=== PATIENT | male | born 1945 | race Caucasian/White ===

== ENCOUNTER 2016-07-05 19:23 | Emergency (ER) | payer MEDICARE, BC ==
[2016-07-05] MEDS ORDERED: Diphtheria/Tetanus Toxoids,Adult (Td) 0.5 ML SDV IM ONE (20:08)
--- NOTE | 2016-07-05 20:17 | EDM.PDOC ---
ED HPI GENERAL MEDICAL PROBLEM - General Chief Complaint: General Stated Complaint: LACERATION Time Seen by Provider: 07/05/16 19:30 Source of Information: Reports: Patient History Limitations: Reports: No limitations - History of Present Illness INITIAL COMMENTS - FREE TEXT/NARRATIVE: claims that he has been drinking all evening and she was watching him. He felt weak and felt dizzy and hit his head against the kitchen counter top. No loss of consciousness. No abnormal behaviour other than his alcoholic behaviors. Pt claims tht he did bleed a lot but now he his not bleeding and feel fine. no neck pain .Does complain of pain his his shoulder which is going on for several years. No nausea , vomiting or headache. No other injuries. Onset: today Onset Date: 07/05/16 Onset Time: 18:30 Location: Reports: head - Related Data Allergies Allergy/AdvReac Type Severity Reaction Status Date / Time ANDRES Inhibitors Allergy Unknown Swollen Verified 08/16/15 12:52 Tongue CONTRAST DYE Allergy Swollen Uncoded 08/16/15 12:52 Tongue Home Meds: Home Meds Aspirin 325 mg PO DAILY 05/14/13 [History] Metoprolol Tartrate [Lopressor] 25 mg PO Q12HR 05/14/13 [History] Sertraline [Zoloft] 100 mg PO BID 05/14/13 [History] amLODIPine Besylate [Norvasc] 5 mg PO DAILY 05/14/13 [History] Albuterol [Ventolin HFA] 1 puff .XX Q4H 08/03/15 [History] Bicalutamide [Casodex] 50 mg PO DAILY 08/03/15 [History] Clobetasol [Clobetasol Propionate 0.05%] 30 gm TOP BID 08/03/15 [History] Clopidogrel [Plavix] 75 mg PO DAILY 08/03/15 [History] Isosorbide Mononitrate [Imdur] 30 mg PO DAILY 08/03/15 [History] Loperamide [Imodium AD] 2 mg PO DAILY 08/03/15 [History] Magnesium Chloride [Mag-64] 1 tab PO DAILY 08/03/15 [History] Pyridoxine HCl [Vitamin B-6] 100 mg PO DAILY 08/03/15 [History] atorvaSTATin [Lipitor] 80 mg PO BEDTIME 08/03/15 [History] Past Medical History HEENT History: Reports: Impaired vision, Other (see below) Other HEENT History: tinitus Cardiovascular History: Reports: Bypass, Hypertension, NE, Stents Respiratory History: Reports: COPD, Pneumonia, recurrent Gastrointestinal History: Reports: Chronic diarrhea Genitourinary History: Reports: Chronic renal insuffiency, Prostate disorder, Retention, urinary, Urinary incontinence Musculoskeletal History: Reports: Back pain, chronic, Osteoarthritis Psychiatric History: Reports: Anxiety, Depression Oncologic (Cancer) History: Reports: Prostate Dermatologic History: Reports: Eczema, Other (see below) Other Dermatologic History: shingles - Infectious Disease History Infectious Disease History: Reports: Chicken pox, Measles, Mumps, Shingles - Past Surgical History Cardiovascular Surgical History: Reports: Coronary artery bypass, Coronary artery stent Respiratory Surgical History: Reports: None GI Surgical History: Reports: Other (see below) Other GI Surgeries/Procedures: removal of hemroids Male Surgical History: Reports: Prostate Biopsy, Prostatectomy Musculoskeletal Surgical History: Reports: Other (see below) Other Musculoskeletal Surgeries/Procedures:: roto cuff surgery on right shoulder Social & Family History - Family History Family Medical History: Noncontributory - Tobacco Use Smoking Status *Q: Current Some Day Smoker Years of Tobacco use: 55 Packs/Tins Daily: 0.2 Used Tobacco, but Quit: No Second Hand Smoke Exposure: Yes - Alcohol Use Days Per Week of Alcohol Use: 7 Number of Drinks Per Day: 1 Total Drinks Per Week: 7 - Recreational Drug Use Recreational Drug Use: No ED ROS GENERAL - Review of Systems Review Of Systems: See Below Constitutional: Reports: other (breath smells of ETOH). Denies: fever, chills, night sweats, diaphoresis HEENT: Reports: Rhinitis, Sinus problem, Throat pain Respiratory: Denies: Shortness of Breath, Cough, Sputum Cardiovascular: Denies: Chest pain, Lightheadedness GI/Abdominal: Denies: Abdominal pain, Nausea, Vomiting Musculoskeletal: Denies: joint pain, joint swelling Skin: Reports: bruising. Denies: pruritis, rash Neurological: Denies: Confusion, Dizziness, Headache, Numbness, Paresthesia, Syncope, Tremors, Difficulty Walking, Weakness, Gait Disturbance ED EXAM, GENERAL - Physical Exam Exam: See Below Exam Limited By: No limitations General Appearance: alert, WD/WN, no apparent distress, other (breath smeel of ETOH) Eye Exam: bilateral eye: EOMI, PERRL Ears: normal external exam, normal canal, hearing grossly normal, normal TMs Ear Exam: bilateral ear: auricle normal, canal normal, TM normal Nose: normal inspection, normal mucosa, no blood Throat/Mouth: Normal inspection, Normal lips, Normal teeth, Normal gums, Normal oropharynx, Normal voice, No airway compromise Head: normocephalic, other (there is a 3 cm gaping laceration over the right forehead. Presently not bleeding. minimal tenderness to pressure. Also there is 1 cm superficial laceration over the right lateral angle of the eye. hemostatic. ). No: facial swelling, facial tenderness ED GENERAL MEDICAL PROCEDURES - Laceration/Wound Repair Right Forehead Lac/wound length in cm: 4 (3 cm laceration over the fore head and 1 cm laceration of right lateral angle of the eye) Distal NVT: neuro & vascular intact Local anesthesia - Lidocaine (Xylocaine): 0.5% with epi Local anesthetic volume: 4cc Skin prep: providone-iodine (betadine) Exploration/Debridement/Repair: wound explored Closed with: sutures Suture size: 4-0 # of sutures: 5 (% sutures over the forehead. Also I did close theright eye magle with 5 O ethilon. 2 intermittent sutures) Sterile dressing applied: provider Tetanus status addressed: Other (given TD today) Complications: No Course - Vital Signs Text/Narrative:: Both the laceration were cleaned and closed under aseptic precautions under local anesthesia. Simple dressing done. He did receive tetanus today. Wound care discussed with spouse. suture removal in 1 wk. If any signs of head injury occur. irregular pupils, nausea , vomiting, seizure, blurry vision. weakness. advised to return to emergency room. otherwise followup with his PCP in 1 wk for suture removal. - Orders/Labs/Meds Orders: Active Orders 24 hr Category Date Time Status Vaccines to be Administered [RC] PER UNIT ROUTINE Care 07/05/16 20:08 Active Meds: Medications Discontinued Medications Generic Name Dose Route Start Last Admin Trade Name Freq PRN Reason Stop Dose Admin Tetanus/Diphtheria Toxoids 0.5 ml 07/05/16 20:08 Tenivac IM 07/05/16 20:09 .ONCE ONE Departure - Departure Time of Disposition: 20:00 Disposition: Home, Self-Care 01 Condition: good Clinical Impression: Laceration of forehead without complication, Laceration of face with complication Instructions: Wound Infection, [id number], Sutured Wound Care, [id number] Forms: ED Department Discharge Additional Instructions: Keep affected area clean and dry for next 2 days. After 2 days, may shower, but only dab sutured areas, no rubbing. Monitor affected sites for signs and symptoms of infection present, including increased redness, increased swelling, increased pain or tenderness to touch, warm to touch, foul drainage, and/or fever present. Should any of these symptoms develop, follow up in clinic to be seen. Sutures should be removed Monday next week. This can be done at your previously scheduled appointment with regular provider. Call with any questions. May give 1-500mg tablet Tylenol when you return home for pain control. - Problem List & Annotations (1) Laceration of face with complication SNOMED Code(s): 83566104, 782961210 Code(s): S01.81XA - LACERATION W/O FOREIGN BODY OF OTH PART OF HEAD, INIT ENCNTR Status: Acute (2) Laceration of forehead without complication SNOMED Code(s): 295791670 Code(s): S01.81XA - LACERATION W/O FOREIGN BODY OF OTH PART OF HEAD, INIT ENCNTR Status: Acute - Problem List Review Problem List Initiated/Reviewed/Updated: Yes - My Orders Last 24 Hours: My Active Orders 07/05/16 20:08 Vaccines to be Administered [RC] PER UNIT ROUTINE - Assessment/Plan Last 24 Hours: My Active Orders 07/05/16 20:08 Vaccines to be Administered [RC] PER UNIT ROUTINE Assessment:: Laceration right forehead 3 cm Right eye lateral angle laceration 1 cm Plan: Both the laceration were cleaned and closed under aseptic precautions under local anesthesia. Simple dressing done. He did receive tetanus today. Wound care discussed with spouse. suture removal in 1 wk. If any signs of head injury occur. irregular pupils, nausea , vomiting, seizure, blurry vision. weakness. advised to return to emergency room. otherwise followup with his PCP in 1 wk for suture removal.
[2016-07-06 03:00] VITALS: BP 109/64
== END 2016-07-05 20:10 | disposition home or self-care (01) ==
LOC: LB.ED 19:23
DX: S01.81XA Laceration without foreign body of other part of head, initial encounter (principal); J44.9 Chronic obstructive pulmonary disease, unspecified; I25.2 Old myocardial infarction; I12.9 Hypertensive chronic kidney disease with stage 1 through stage 4 chronic kidney disease, or unspecified chronic kidney disease; N18.9 Chronic kidney disease, unspecified; F41.9 Anxiety disorder, unspecified; F32.9 Major depressive disorder, single episode, unspecified; F17.210 Nicotine dependence, cigarettes, uncomplicated; Z91.041 Radiographic dye allergy status; Z88.8 Allergy status to other drugs, medicaments and biological substances; Z79.82 Long term (current) use of aspirin; Z79.899 Other long term (current) drug therapy; Z98.890 Other specified postprocedural states; Z23 Encounter for immunization; W01.10XA Fall on same level from slipping, tripping and stumbling with subsequent striking against unspecified object, initial encounter
CPT/HCPCS: 12013; 90471; 90714; 99282; 99283-25

== ENCOUNTER 2016-08-16 16:28 | Emergency (ER) | payer MEDICARE, BC ==
[2016-08-16] MEDS ORDERED: Thiamine 200 MG/2 ML MDV ONE (16:50)
[2016-08-16] MEDS ORDERED: Ranitidine 50 MG/2 ML SDV ONE (16:50)
[2016-08-16] MEDS ORDERED: Sodium Chloride 0.9% 10 ML Syringe FLUSH PRN (17:05)
[2016-08-16] MEDS ORDERED: Ranitidine 50 MG/2 ML SDV IV ONE (17:07)
[2016-08-16] MEDS ORDERED: Lactated Ringers 1,000 ML IV SCH (17:15)
[2016-08-16] MEDS ORDERED: Thiamine 200 MG/2 ML MDV IM SCH (17:30)
[2016-08-16 18:16] VITALS: BP 88/68
--- NOTE | 2016-08-17 07:25 | ER ---
CHIEF COMPLAINT: The patient came to the ER complaining of loose black stool today followed several hours later by a bloody vomitus. HISTORY OF PRESENT ILLNESS: The patient was in his usual state of health. Today, he had a loose dark stool, felt a bit better. Afterwards when out to do some yard work, he started to feel a little weak. About 4 o'clock this afternoon, he had a bloody vomiting x1 of dark red fresh blood. No coffee-grounds present. The patient was recently admitted to the hospital in [place] about 2 weeks ago for hematuria of the bladder and at that time, he had his Plavix stopped and was evaluated by Urology and sent home. PAST MEDICAL HISTORY: Significant for ischemic cardiomyopathy, status post coronary artery bypass. He has had radical retropubic prostatectomy due to prostate cancer. He has also had radiation for this. He has had a history of recurrent colonic polyps. He is not due for his next colonoscopy until later this year. He has history of hypertension, hyperlipidemia, and depression as well as COPD. SOCIAL HISTORY: He is a smoker long-term. He also drinks a bit of alcohol including homemade alcohol. He states he has not drank anything for 3 days. He has no history of DTs. REVIEW OF SYSTEMS: The patient denies any fever or weight loss. He did have some fatigue today, felt weak when he would stand up or walk around. He was comfortable lying down or sitting down. Denies any vision changes. No nasal congestion, sore throat, or ear pain. No chest pain or palpitation. No coughing or wheezing. No constipation or heartburn. : He did have some nausea and vomiting today of bloody emesis x1, about 4 p.m. today and did have some melena type stool today x1 at about noon. He has no dysuria at this time. He is not passing any blood or clots. MUSCULOSKELETAL: No complaints of joint pain or swelling at this time. SKIN: He has no complaints or rashes except for some senile purpura on his upper extremities. NEURO: He has no complaints of headache or focal weakness. PSYCH: He has a history of depression, which he feels is under control. PHYSICAL EXAMINATION: GENERAL: Well developed, elderly male. He is alert, he is oriented x3. Currently, he is in no acute distress. VITAL SIGNS: Blood pressure in the emergency room showed a tilt with blood pressure lying down at 136/76, pulse of 87, standing up blood pressure 88/68, pulse of 98, his temperature is 99.3, and his saturations on room air are 100%. EYES: Show EOMI. Conjunctiva is clear. Lids are normal. There is no icterus present. ENT: Throat is clear. He is edentulous. Nose is clear. TMs are normal. NECK: Supple. No thyromegaly. No bruits. No masses. LYMPH: Negative. LUNGS: Clear. No rhonchi or wheezing. HEART: Shows regular rate and rhythm. No murmurs, rubs, or gallops. No S3, no S4. There is gynecomastia present bilaterally. ABDOMEN: Soft. Bowel sounds x4. No mass, no organomegaly. There is no hyperactivity of bowel sounds. He is heme positive on rectal exam. BACK: No CVA or cord tenderness. No limitations of motion. SKIN: No rashes or sores except for some senile purpura of the hands and forearms bilaterally. NEURO: Cranial nerves 2 through 12 intact. No motor or sensory deficits. PSYCH: Normal judgment and insight. Oriented x3. Memory is intact. Mood is appropriate. ASSESSMENT: 1. Probable upper GI bleed, acute in nature. 2. Probable radiation proctitis, chronic in nature. 3. History of colonic polyps. 4. History of exposure to radiation due to prostate cancer treatment. 5. History of chronic obstructive pulmonary disease. 6. History of atherosclerosis. 7. History of coronary artery disease, status post CABG. 8. History of recent hemorrhage from the bladder. PLAN: Due to the patient tilting, there was concerns that his upper GI bleed may be somewhat significant requiring urgent endoscopy. I do not think he has varices as a recent CT of the abdomen showed a noncirrhotic liver. I do think he probably has acute gastritis from his alcohol use. Also, he has a history of having been on multiple agents I can thin the blood including his Zoloft, his baby aspirin, and his recent Plavix that had just been discontinued. Today, his urine does show too numerous to count red cells present, alcohol level was 0. Hematology, his white count was 7.3, his hemoglobin was 12, hematocrit 34.9, RDW 14.9, platelet count 169, and an MCV of 105. Recent CBC about 6 weeks ago had a hemoglobin of 14.2. His INR was normal. His electrolytes were normal; however, his BUN was elevated from his baseline of approximately 15, it was 46 likely from absorbing blood of upper GI origin, creatinine was at 1.15 with a GFR greater than 60. Glucose was 115, calcium was normal, his magnesium was a little low at 1.2. Liver enzymes were normal. The patient was transferred back to [place], where he has his urologist, curtain framer, and oncologist. He was accepted by Dr. Salmeron. I imagine he will have his blood count followed closely and have endoscopy in the morning. I do not think he has varices as I said prior; however, he probably has acute peptic ulcer disease from home made excessive alcohol use on a chronic basis. AMANDA /[id number]
== END 2016-08-16 19:00 ==
LOC: LB.ED 16:28
DX: K92.2 Gastrointestinal hemorrhage, unspecified (principal); K62.7 Radiation proctitis; I10 Essential (primary) hypertension; E78.5 Hyperlipidemia, unspecified; F32.9 Major depressive disorder, single episode, unspecified; J44.9 Chronic obstructive pulmonary disease, unspecified
CPT/HCPCS: 36415; 80053; 83735; 85025; 85610; 93005; 96361; 96372; 96374; 99284; 99285; A0425; A0429; G0480; J2780; J3411; J7120

== ENCOUNTER 2017-05-15 09:29 | Inpatient (IN) | payer MEDICARE, BC ==
[2017-05-17] MEDS ORDERED: oxyCODONE 5 MG Tab ONE ×2 (19:56→19:59)
[2017-05-17] MEDS ORDERED: oxyCODONE 5 MG Tab PO PRN (20:00)
[2017-05-17] MEDS ORDERED: Acetaminophen 650 MG Tab.ER PO PRN (20:17)
[2017-05-17] MEDS ORDERED: Albuterol 0.083% 2.5 MG/3 ML Neb Soln INH PRN (20:17)
[2017-05-17] MEDS ORDERED: Ondansetron 4 MG Tab.DIS PO PRN (20:17)
[2017-05-17] MEDS ORDERED: Polyethylene Glycol 3350 Powder 17 GM Packet PO PRN (20:17)
[2017-05-17] MEDS ORDERED: DRONABINOL 5 MG PO SCH (20:21)
[2017-05-17] MEDS ORDERED: Lactulose Soln 10 GM/15 ML 15 ML UD Cup PO PRN (20:32)
[2017-05-17] MEDS: Metoprolol Tartrate 25 MG Tab PO SCH (20:42)
[2017-05-17] MEDS: Famotidine 20 MG Tab PO SCH (20:42)
[2017-05-17] MEDS: Lactulose Soln 10 GM/15 ML 15 ML UD Cup PO SCH (20:42)
[2017-05-17] MEDS: Albuterol/Ipratropium 3.0-0.5 MG/3 ML Neb Soln INH SCH (20:43)
[2017-05-18] MEDS ORDERED: Cholecalciferol (Vitamin D3) 2,000 Unit Cap PO SCH (08:00)
[2017-05-18] MEDS ORDERED: Enoxaparin 40 MG/0.4 ML Syringe SUBCUT SCH (08:00)
[2017-05-18] MEDS ORDERED: Tuberculin, PPD 5 Units/0.1 ML 1 ML MDV IDERM ONE (08:07)
[2017-05-18] MEDS: Lidocaine 5% 700 MG Patch TOP SCH (08:32)
[2017-05-18] MEDS: Albuterol/Ipratropium 3.0-0.5 MG/3 ML Neb Soln INH SCH ×4 (08:33→20:05)
[2017-05-18] MEDS: Enoxaparin 40 MG/0.4 ML Syringe SUBCUT SCH (08:33)
[2017-05-18] MEDS: Lactulose Soln 10 GM/15 ML 15 ML UD Cup PO SCH ×2 (08:35→20:07)
[2017-05-18] MEDS: Famotidine 20 MG Tab PO SCH ×2 (08:35→20:04)
[2017-05-18] MEDS: Multivitamins with Iron/Calcium/Folic Acid/Minerals Tab PO SCH (08:35)
[2017-05-18] MEDS: Furosemide 20 MG Tab PO SCH (08:36)
[2017-05-18] MEDS: Cholecalciferol (Vitamin D3) 1,000 Unit Tab PO SCH (08:36)
[2017-05-18] MEDS: oxyCODONE 5 MG Tab PO PRN ×4 (08:37→21:03)
[2017-05-18] MEDS: Sertraline 100 MG Tab PO SCH (08:37)
[2017-05-18] MEDS: Metoprolol Tartrate 25 MG Tab PO SCH ×2 (08:42→20:05)
[2017-05-18] MEDS: Acetaminophen 325 MG Tab PO PRN ×2 (16:57→21:04)
--- NOTE | 2017-05-18 17:44 | PCM.HP ---
H&P History of Present Illness - General Date of Service: 05/18/17 Admit Problem/Dx: Admission Diagnosis/Problem Admission Diagnosis/Problem Disruption of external surgical wound Source of Information: Patient, Old Records, RN History Limitations: Reports: No Limitations - History of Present Illness Initial Comments - Free Text/Narative: This 72 yr male admit to Swing bed program for dehiscence of surgical wound to abdomen, deconditioning, malignant, right pleural effusion and wound care. Pt is transferred from [facility] in [place], [place]. Pt has a medical history of CAD, COPD, dyslipidemia and GE junction mass and adenocarcinoma. He had chemoradiation wtih carbopatin on 03-13-17 and had a transhiatal esophagectomy, post surgery complicated with wound dehiscence. He does have a PleurX catheter to the right lung and this is to be drained 2x/week. 8 Pain Score (Numeric/FACES): 6 - Related Data Allergies/Adverse Reactions: Allergies Allergy/AdvReac Type Severity Reaction Status Date / Time ANDRES Inhibitors Allergy Unknown Swollen Verified 05/17/17 20:20 Tongue CONTRAST DYE Allergy Swollen Uncoded 05/17/17 20:20 Tongue Home Medications: Home Meds Metoprolol Tartrate [Lopressor] 25 mg PO BID 05/14/13 [History] Sertraline [Zoloft] 100 mg PO DAILY 05/14/13 [History] Acetaminophen [Tylenol Arthritis] 650 mg PO Q4H PRN 05/17/17 [History] Albuterol [Proventil Neb Soln] 2.5 mg INH Q4H PRN 05/17/17 [History] Albuterol/Ipratropium [DuoNeb 3.0-0.5 MG/3 ML] 3 ml INH Q6H PRN 05/17/17 [ History] Albuterol/Ipratropium [DuoNeb 3.0-0.5 MG/3 ML] 3 ml INH QID 05/17/17 [History] Cholecalciferol (Vitamin D3) [Vitamin D3] 2,000 unit PO DAILY 05/17/17 [History] Dronabinol 5 mg PO BID 05/17/17 [History] Enoxaparin Sodium 40 mg SQ DAILY 05/17/17 [History] Famotidine 20 mg PO BID 05/17/17 [History] Furosemide [Lasix] 20 mg PO DAILY 05/17/17 [History] Lactulose 10 gm PO DAILY PRN 05/17/17 [History] Lactulose 20 gm PO BID 05/17/17 [History] Lidocaine 5% [Lidoderm 5%] 1 patch TOP DAILY 05/17/17 [History] Melatonin 3 mg PO QPM 05/17/17 [History] Multivitamin [Men's Multi-Vitamin] 1 each PO DAILY 05/17/17 [History] Ondansetron [Zofran ODT] 4 mg PO Q6H PRN 05/17/17 [History] Polyethylene Glycol 3350 [MiraLAX] 17 gm PO DAILY PRN 05/17/17 [History] Sennosides/Docusate Sodium [Sennosides-Docusate Sodium] 2 each PO BID PRN [History] oxyCODONE 5 mg PO Q4H PRN 05/17/17 [History] Past Medical History HEENT History: Reports: Impaired Vision, Other (See Below) Other HEENT History: esophagous removed d/t CA, some hearing issues (tinnitus) Cardiovascular History: Reports: Bypass, Heart Murmur, Hypertension, [place], SOB on Exertion, Stents Respiratory History: Reports: COPD, Pneumonia, Recurrent, Pneumothorax Gastrointestinal History: Reports: Chronic Diarrhea, Colon Polyp, Hemorrhoids, Other (See Below) Other Gastrointestinal History: possible hernia in abdomen Genitourinary History: Reports: Chronic Renal Insuffiency, Prostate Disorder, Retention, Urinary, Urinary Incontinence, Other (See Below) Other Genitourinary History: prostate removed d/t CA Musculoskeletal History: Reports: Back Pain, Chronic, Osteoarthritis Psychiatric History: Reports: Anxiety, Depression, Mood Swings, PTSD Other Psychiatric History: ETOH abuse Hematologic History: Reports: Bleeding Disorder, Other (See Below) Other Hematologic History: clotting disorder " I clot quick" Oncologic (Cancer) History: Reports: Esophageal, Prostate, Other (See Below) Other Oncologic History: "some colon polyps were cancerous type I think" Dermatologic History: Reports: Eczema, Other (See Below) Other Dermatologic History: shingles - Infectious Disease History Infectious Disease History: Reports: Other (See Below) Other Infectious Disease History: ' i don t know, i think I have had it all" - Past Surgical History Cardiovascular Surgical History: Reports: Coronary Artery Bypass, Coronary Artery Stent Respiratory Surgical History: Reports: Other (See Below) Other Respiratory Surgeries/Procedures: chest tubes currently in place on R. chest tubes removed and healed on left GI Surgical History: Reports: Other (See Below) Other GI Surgeries/Procedures: stomnach attached top of esophagus with esophageal removal Male Surgical History: Reports: Prostatectomy Musculoskeletal Surgical History: Reports: Arthroscopic Procedure, Other (See Below) Other Musculoskeletal Surgeries/Procedures:: rotator cuff sx arthroscopy previous to sx Social & Family History - Family History Family Medical History: Noncontributory - Tobacco Use Smoking Status *Q: Former Smoker Years of Tobacco use: 55 Packs/Tins Daily: 0.2 Used Tobacco, but Quit: Yes Month Tobacco Last Used: February Second Hand Smoke Exposure: Yes - Caffeine Use Caffeine Use: Reports: Coffee - Alcohol Use Days Per Week of Alcohol Use: 7 Number of Drinks Per Day: 1 Total Drinks Per Week: 7 - Recreational Drug Use Recreational Drug Use: No H&P Review of Systems - Review of Systems: Review Of Systems: See Below General: Reports: Weight Loss HEENT: Reports: No Symptoms Pulmonary: Reports: Other (PleurX catheter to right chest) Cardiovascular: Reports: Dyspnea on Exertion. Denies: Chest Pain, Edema Gastrointestinal: Reports: Abdominal Pain. Denies: Constipation, Hematochezia, Melena, Vomiting Skin: Reports: Wound (abdomen and chest tube to right lower, anterior chest) Psychiatric: Reports: Depression Neurological: Reports: No Symptoms Hematologic/Lymphatic: Reports: No Symptoms Exam - Exam Exam: See Below - Vital Signs Vital Signs: Last Vital Signs Temp 98.5 F 05/17/17 20:00 Pulse 64 05/18/17 08:42 Resp 20 05/17/17 20:00 BP 128/74 05/18/17 08:42 Pulse Ox 93 L 05/17/17 20:12 Weight: 154 lb - Exam Quality Assessment: Supplemental Oxygen General: Alert, Oriented HEENT: Mucosa Moist & [place] Neck: Supple, Trachea Midline Lungs: Decreased Breath Sounds, Crackles (to bases bilaterally), Other (PleurX catheter to right chest to drain 2x/week.) Cardiovascular: Normal S1, Normal S2, Irregular Rhythm GI/Abdominal Exam: Normal Bowel Sounds, Soft, Tender (wound to middle of abdomen , dressing intact, no drainage noted). No: Rigid, Rebound Back Exam: Normal Inspection, Full Range of Motion Extremities: Normal Inspection, Normal Range of Motion, No Pedal Edema Skin: Warm, Dry, Wound (dehisence of surgical wound to middle abdomen) Neuro Extensive - Mental Status: Alert, Oriented x3, Normal Mood/Affect, Normal Cognition Neuro Extensive - Motor, Sensory, Reflexes: Normal Gait Psychiatric: Alert, Normal Affect, Normal Mood *Q Meaningful Use (ADM) - VTE *Q VTE Criteria *Q: - Stroke *Q Stroke Criteria *Q: - AMI *Q AMI Criteria *Q: - Problem List (1) Disruption of surgical wound SNOMED Code(s): 69743699 ICD Code: T81.31XA - DISRUPTION OF EXTERNAL OPERATION (SURGICAL) WOUND, NEC, INIT Status: Acute Current Visit: Yes (2) Malignant pleural effusion SNOMED Code(s): 35830585 ICD Code: J91.0 - MALIGNANT PLEURAL EFFUSION Status: Acute Current Visit : Yes (3) Depression SNOMED Code(s): 42702167 ICD Code: F32.9 - MAJOR DEPRESSIVE DISORDER, SINGLE EPISODE, UNSPECIFIED Status: Acute Current Visit: Yes (4) Diastolic heart failure SNOMED Code(s): 611020523 ICD Code: I50.30 - UNSPECIFIED DIASTOLIC (CONGESTIVE) HEART FAILURE Status : Acute Current Visit: Yes (5) DVT prophylaxis SNOMED Code(s): 395345752 ICD Code: TEI3152 - Status: Acute Current Visit: Yes (6) Constipation SNOMED Code(s): 77693564 ICD Code: K59.00 - CONSTIPATION, UNSPECIFIED Status: Acute Current Visit : Yes (7) Hypertension SNOMED Code(s): 61962651 ICD Code: I10 - ESSENTIAL (PRIMARY) HYPERTENSION Status: Acute Current Visit: Yes (8) Physical deconditioning SNOMED Code(s): 56102145144264 ICD Code: R53.81 - OTHER MALAISE Status: Acute Current Visit: Yes (9) COPD (chronic obstructive pulmonary disease) SNOMED Code(s): 21509714 ICD Code: J44.9 - CHRONIC OBSTRUCTIVE PULMONARY DISEASE, UNSPECIFIED Status : Chronic Current Visit: No Problem List Initiated/Reviewed/Updated: Yes Orders Last 24hrs: Active Orders 24 hr Category Date Time Status Patient Status [ADT] Routine ADT 05/17/17 20:00 Active Height and Weight [RC] WEEKLY Care 05/17/17 20:14 Active Oxygen Therapy [RC] PRN Care 05/17/17 20:12 Active Up With Assistance [RC] ASDIRECTED Care 05/17/17 20:00 Active VTE/DVT Education [RC] Per Unit Routine Care 05/17/17 20:12 Active Vital Signs [RC] PER UNIT ROUTINE Care 05/17/17 20:12 Active Consult to Business Travel Consultant [CONS] Routine Cons 05/17/17 20:00 Active OT Evaluation and Treatment [CONS] Routine Cons 05/17/17 20:00 Active PT Evaluation and Treatment [CONS] Routine Cons 05/17/17 20:00 Active Regular Diet [DIET] Diet 05/18/17 Breakfast Ordered CBC WITH AUTO DIFF [HEME] Routine Lab 05/19/17 07:30 Ordered COMPREHENSIVE METABOLIC PN,CMP [CHEM] Routine Lab 05/19/17 07:30 Ordered CULTURE MRSA SURVEY [RM] Routine Lab 05/18/17 08:05 Ordered Acetaminophen [Tylenol] Med 05/18/17 08:22 Active 650 mg PO Q4H PRN Albuterol [Proventil Neb Soln] Med 05/17/17 20:17 Active 2.5 mg INH Q4H PRN Albuterol/Ipratropium [DuoNeb 3.0-0.5 MG/3 ML] Med 05/17/17 20:22 Active 3 ml INH QID Cholecalciferol (Vitamin D3) [Vitamin D3] Med 05/18/17 08:00 Active 1,000 units PO DAILY Docusate Sodium/Sennosides [Senna Plus] Med 05/17/17 20:17 Active 2 tab PO BID PRN Dronabinol [Dronabinol] Med 05/17/17 20:21 Pending 5 mg PO BID Enoxaparin [Lovenox] Med 05/18/17 08:00 Active 40 mg SUBCUT DAILY Famotidine [Pepcid] Med 05/17/17 20:00 Active 20 mg PO BID Furosemide [Lasix] Med 05/18/17 08:00 Active 20 mg PO DAILY Lactulose [Chronulac] Med 05/17/17 20:32 Active 10 gm PO DAILY PRN Lactulose [Chronulac] Med 05/17/17 20:45 Active 20 gm PO BID Lidocaine 5% [Lidoderm 5%] Med 05/18/17 08:00 Active 700 mg TOP DAILY Melatonin Med 05/18/17 20:00 Active 3 mg PO QPM Metoprolol Tartrate [Lopressor] Med 05/17/17 20:30 Active 25 mg PO BID Multivitamins w-Iron/Ca/FA/Min [Thera M Plus] Med 05/18/17 08:00 Active 1 tab PO DAILY Ondansetron [Zofran ODT] Med 05/17/17 20:17 Active 4 mg PO Q6H PRN Polyethylene Glycol 3350 [MiraLAX] Med 05/17/17 20:17 Active 17 gm PO DAILY PRN Remove Patch Med 05/18/17 20:00 Active 1 ea TRDERM Q24H Sertraline [Zoloft] Med 05/18/17 08:00 Active 100 mg PO DAILY oxyCODONE Med 05/17/17 20:00 Active 5 mg PO Q4H PRN Resuscitation Status Routine Resus Stat 05/17/17 20:00 Ordered Medication Orders Acetaminophen (Tylenol) 650 mg PO Q4H PRN PRN Reason: MILD PAIN Last Admin: 05/18/17 16:57 Dose: 650 mg Albuterol (Proventil Neb Soln) 2.5 mg INH Q4H PRN PRN Reason: Shortness of Breath Albuterol/Ipratropium (Duoneb 3.0-0.5 Mg/3 Ml) 3 ml INH QID [facility] Last Admin: 05/18/17 16:41 Dose: 3 ml Admin: 05/18/17 12:23 Dose: 3 ml Admin: 05/18/17 08:33 Dose: 3 ml Admin: 05/17/17 20:43 Dose: 3 ml Cholecalciferol (Vitamin D3) 1,000 units PO DAILY [facility] Last Admin: 05/18/17 08:36 Dose: 1,000 units Enoxaparin Sodium (Lovenox) 40 mg SUBCUT DAILY [facility] Last Admin: 05/18/17 08:33 Dose: 40 mg Famotidine (Pepcid) 20 mg PO BID [facility] Last Admin: 05/18/17 08:35 Dose: 20 mg Admin: 05/17/17 20:42 Dose: 20 mg Furosemide (Lasix) 20 mg PO DAILY [facility] Last Admin: 05/18/17 08:36 Dose: 20 mg Lactulose (Chronulac) 10 gm PO DAILY PRN PRN Reason: CONSTIPATION Lactulose (Chronulac) 20 gm PO BID [facility] Last Admin: 05/18/17 08:35 Dose: 20 gm Admin: 05/17/17 20:42 Dose: 20 gm Lidocaine (Lidoderm 5%) 700 mg TOP DAILY [facility] Last Admin: 05/18/17 08:32 Dose: 700 mg Melatonin (Melatonin) 3 mg PO QPM [facility] Metoprolol Tartrate (Lopressor) 25 mg PO BID [facility] Last Admin: 05/18/17 08:42 Dose: 25 mg Admin: 05/17/17 20:42 Dose: 25 mg Miscellaneous Information (Remove Patch) 1 ea TRDERM Q24H [facility] Multivitamins/Minerals (Thera M Plus) 1 tab PO DAILY [facility] Last Admin: 05/18/17 08:35 Dose: 1 tab Non-Formulary Medication (Dronabinol [Dronabinol]) 5 mg PO BID [facility] Ondansetron HCl (Zofran Odt) 4 mg PO Q6H PRN PRN Reason: Nausea Oxycodone HCl (Oxycodone) 5 mg PO Q4H PRN PRN Reason: Pain (moderate 4-6) Last Admin: 05/18/17 16:56 Dose: 5 mg Admin: 05/18/17 12:23 Dose: 5 mg Admin: 05/18/17 08:37 Dose: 10 mg Polyethylene Glycol (Miralax) 17 gm PO DAILY PRN PRN Reason: Constipation Senna/Docusate Sodium (Senna Plus) 2 tab PO BID PRN PRN Reason: Constipation Sertraline HCl (Zoloft) 100 mg PO DAILY [facility] Last Admin: 05/18/17 08:37 Dose: 100 mg Assessment/Plan Comment:: A/P: Will admit to Swing Bed program for deconditioning and wound dehisence with wound care: PT/OT consult for strengthening and wound consult. Wound care and teach to perform wound care. Business Travel Consultant consult for nutrition evaluation. Zoloft daily for depression. Heart failure: Lasix 20 mg daily. Pleural effusion: Drain PleurX catheter 2x/week and teach on procedure for discharge. COPD stable: On nebulizers DVT prophylaxis: Continue with Lovenox Sq Constipation: Lactulose daily and miralax as needed. Hypertension: Metoprolol as ordered. GI prophylaxis: Pepcid as ordered. Pain medication as ordered.
[2017-05-18] MEDS: Melatonin 3 MG Tab PO SCH (20:05)
[2017-05-18] MEDS: Remove Patch*LIDODERM TRDERM SCH (20:06)
[2017-05-19] MEDS: Metoprolol Tartrate 25 MG Tab PO SCH ×2 (07:52→19:19)
[2017-05-19] MEDS: Albuterol/Ipratropium 3.0-0.5 MG/3 ML Neb Soln INH SCH ×4 (07:52→19:19)
[2017-05-19] MEDS: Lactulose Soln 10 GM/15 ML 15 ML UD Cup PO SCH ×2 (07:52→19:19)
[2017-05-19] MEDS: Famotidine 20 MG Tab PO SCH ×2 (07:53→19:19)
[2017-05-19] MEDS: Sertraline 100 MG Tab PO SCH (07:53)
[2017-05-19] MEDS: Furosemide 20 MG Tab PO SCH (07:53)
[2017-05-19] MEDS: Enoxaparin 40 MG/0.4 ML Syringe SUBCUT SCH (07:53)
[2017-05-19] MEDS: Multivitamins with Iron/Calcium/Folic Acid/Minerals Tab PO SCH (07:53)
[2017-05-19] MEDS: Cholecalciferol (Vitamin D3) 1,000 Unit Tab PO SCH (07:53)
[2017-05-19] MEDS: Lidocaine 5% 700 MG Patch TOP SCH (08:00)
[2017-05-19] MEDS: oxyCODONE 5 MG Tab PO PRN ×3 (08:01→19:20)
[2017-05-19] MEDS: Magnesium Chloride 64 MG Tab.ER PO SCH ×2 (13:37→19:20)
[2017-05-19] MEDS: Dronabinol 2.5 MG Cap PO SCH (18:52)
[2017-05-19] MEDS: Melatonin 3 MG Tab PO SCH (19:19)
[2017-05-19] MEDS: Remove Patch*LIDODERM TRDERM SCH (20:00)
[2017-05-20] MEDS: Sertraline 100 MG Tab PO SCH (07:54)
[2017-05-20] MEDS: Famotidine 20 MG Tab PO SCH ×2 (07:54→20:42)
[2017-05-20] MEDS: Multivitamins with Iron/Calcium/Folic Acid/Minerals Tab PO SCH (07:54)
[2017-05-20] MEDS: Furosemide 20 MG Tab PO SCH (07:55)
[2017-05-20] MEDS: Enoxaparin 40 MG/0.4 ML Syringe SUBCUT SCH (07:55)
[2017-05-20] MEDS: Albuterol/Ipratropium 3.0-0.5 MG/3 ML Neb Soln INH SCH ×4 (07:55→20:43)
[2017-05-20] MEDS: Cholecalciferol (Vitamin D3) 1,000 Unit Tab PO SCH (07:55)
[2017-05-20] MEDS: Lidocaine 5% 700 MG Patch TOP SCH (07:56)
[2017-05-20] MEDS: Metoprolol Tartrate 25 MG Tab PO SCH ×2 (07:57→20:49)
[2017-05-20] MEDS: Magnesium Chloride 64 MG Tab.ER PO SCH ×2 (07:59→20:42)
[2017-05-20] MEDS: oxyCODONE 5 MG Tab PO PRN ×2 (08:43→15:37)
[2017-05-20] MEDS: Lactulose Soln 10 GM/15 ML 15 ML UD Cup PO SCH ×2 (08:44→20:43)
[2017-05-20] MEDS: Dronabinol 2.5 MG Cap PO SCH ×2 (13:35→16:06)
[2017-05-20] MEDS: Melatonin 3 MG Tab PO SCH (20:42)
[2017-05-20] MEDS: Remove Patch*LIDODERM TRDERM SCH (22:31)
[2017-05-21] MEDS: Albuterol/Ipratropium 3.0-0.5 MG/3 ML Neb Soln INH SCH ×4 (07:51→20:53)
[2017-05-21] MEDS: Enoxaparin 40 MG/0.4 ML Syringe SUBCUT SCH (07:52)
[2017-05-21] MEDS: Famotidine 20 MG Tab PO SCH ×2 (07:52→20:52)
[2017-05-21] MEDS: Furosemide 20 MG Tab PO SCH (07:52)
[2017-05-21] MEDS: Multivitamins with Iron/Calcium/Folic Acid/Minerals Tab PO SCH (07:52)
[2017-05-21] MEDS: Metoprolol Tartrate 25 MG Tab PO SCH ×2 (07:52→20:35)
[2017-05-21] MEDS: Cholecalciferol (Vitamin D3) 1,000 Unit Tab PO SCH (07:52)
[2017-05-21] MEDS: Magnesium Chloride 64 MG Tab.ER PO SCH ×2 (07:52→20:53)
[2017-05-21] MEDS: oxyCODONE 5 MG Tab PO PRN ×3 (07:55→21:09)
[2017-05-21] MEDS: Lidocaine 5% 700 MG Patch TOP SCH (07:55)
[2017-05-21] MEDS: Sertraline 100 MG Tab PO SCH (07:55)
[2017-05-21] MEDS: Lactulose Soln 10 GM/15 ML 15 ML UD Cup PO SCH ×2 (07:56→20:53)
[2017-05-21] MEDS: Dronabinol 2.5 MG Cap PO SCH ×2 (13:15→16:07)
[2017-05-21] MEDS: Melatonin 3 MG Tab PO SCH (20:52)
[2017-05-21] MEDS: Remove Patch*LIDODERM TRDERM SCH (20:54)
[2017-05-21] MEDS: Acetaminophen 325 MG Tab PO PRN (21:08)
[2017-05-22] MEDS: Albuterol/Ipratropium 3.0-0.5 MG/3 ML Neb Soln INH SCH ×5 (07:32→19:42)
[2017-05-22] MEDS: Lidocaine 5% 700 MG Patch TOP SCH (07:32)
[2017-05-22] MEDS: Famotidine 20 MG Tab PO SCH ×2 (07:33→19:42)
[2017-05-22] MEDS: Sertraline 100 MG Tab PO SCH (07:33)
[2017-05-22] MEDS: Lactulose Soln 10 GM/15 ML 15 ML UD Cup PO SCH ×2 (07:33→19:42)
[2017-05-22] MEDS: Metoprolol Tartrate 25 MG Tab PO SCH ×2 (07:33→19:43)
[2017-05-22] MEDS: Cholecalciferol (Vitamin D3) 1,000 Unit Tab PO SCH (07:33)
[2017-05-22] MEDS: Furosemide 20 MG Tab PO SCH (07:33)
[2017-05-22] MEDS: Magnesium Chloride 64 MG Tab.ER PO SCH ×2 (07:33→19:42)
[2017-05-22] MEDS: Multivitamins with Iron/Calcium/Folic Acid/Minerals Tab PO SCH (07:34)
[2017-05-22] MEDS: Enoxaparin 40 MG/0.4 ML Syringe SUBCUT SCH (07:41)
[2017-05-22] MEDS: Acetaminophen 325 MG Tab PO PRN ×3 (07:42→20:20)
[2017-05-22] MEDS: oxyCODONE 5 MG Tab PO PRN ×3 (07:43→20:19)
[2017-05-22] MEDS: Dronabinol 2.5 MG Cap PO SCH ×2 (10:47→16:04)
[2017-05-22] MEDS: Melatonin 3 MG Tab PO SCH (19:42)
[2017-05-22] MEDS: Remove Patch*LIDODERM TRDERM SCH (19:48)
--- NOTE | 2017-05-22 22:26 | PCM.PN ---
- General Info Date of Service: 05/22/17 Admission Dx/Problem (Free Text): Admission Diagnosis/Problem Admission Diagnosis/Problem Disruption of external surgical wound Subjective Update: Pt states he has been cool, but is improving and feeling stronger. States his hasn't had much experience with providing nursing care, but is starting to learn about his dressing change to his abdomen and drainage of his PleurX catheter. Functional Status: Reports: Tolerating Diet - Review of Systems General: Reports: Weakness HEENT: Reports: No Symptoms Pulmonary: Reports: Shortness of Breath Cardiovascular: Reports: No Symptoms Gastrointestinal: Reports: Abdominal Pain Genitourinary: Reports: No Symptoms Skin: Reports: Other (abdominal wound) Neurological: Reports: No Symptoms Psychiatric: Reports: No Symptoms - Patient Data Vitals - Most Recent: Last Vital Signs Temp 98.6 F 05/22/17 19:57 Pulse 109 H 05/22/17 19:57 Resp 16 05/22/17 19:57 BP 109/61 05/22/17 19:57 Pulse Ox 96 05/22/17 19:57 Weight - Most Recent: 154 lb I&O - Last 24 Hours: Intake & Output 05/22/17 05/22/17 05/22/17 06:59 14:59 22:59 Intake Total 360 Balance 360 Med Orders - Current: Current Medications Acetaminophen (Tylenol) 650 mg PO Q4H PRN PRN Reason: MILD PAIN Last Admin: 05/22/17 20:20 Dose: 650 mg Albuterol (Proventil Neb Soln) 2.5 mg INH Q4H PRN PRN Reason: Shortness of Breath Albuterol/Ipratropium (Duoneb 3.0-0.5 Mg/3 Ml) 3 ml INH QID [facility] Last Admin: 05/22/17 19:42 Dose: 3 ml Cholecalciferol (Vitamin D3) 1,000 units PO DAILY [facility] Last Admin: 05/22/17 07:33 Dose: 1,000 units Dronabinol (Marinol) 2.5 mg PO BID@1100,1600 [facility] Last Admin: 05/22/17 16:04 Dose: 2.5 mg Enoxaparin Sodium (Lovenox) 40 mg SUBCUT DAILY [facility] Last Admin: 05/22/17 07:41 Dose: 40 mg Famotidine (Pepcid) 20 mg PO BID [facility] Last Admin: 05/22/17 19:42 Dose: 20 mg Furosemide (Lasix) 20 mg PO DAILY [facility] Last Admin: 05/22/17 07:33 Dose: 20 mg Lactulose (Chronulac) 10 gm PO DAILY PRN PRN Reason: CONSTIPATION Lactulose (Chronulac) 20 gm PO BID [facility] Last Admin: 05/22/17 19:42 Dose: Not Given Lidocaine (Lidoderm 5%) 700 mg TOP DAILY [facility] Last Admin: 05/22/17 07:32 Dose: 700 mg Magnesium Chloride (Mag-64) 64 mg PO BID [facility] Last Admin: 05/22/17 19:42 Dose: 64 mg Melatonin (Melatonin) 3 mg PO QPM [facility] Last Admin: 05/22/17 19:42 Dose: 3 mg Metoprolol Tartrate (Lopressor) 25 mg PO BID [facility] Last Admin: 05/22/17 19:43 Dose: 25 mg Miscellaneous Information (Remove Patch) 1 ea TRDERM Q24H [facility] Last Admin: 05/22/17 19:48 Dose: 1 ea Multivitamins/Minerals (Thera M Plus) 1 tab PO DAILY [facility] Last Admin: 05/22/17 07:34 Dose: 1 tab Ondansetron HCl (Zofran Odt) 4 mg PO Q6H PRN PRN Reason: Nausea Last Admin: 05/19/17 12:13 Dose: 4 mg Oxycodone HCl (Oxycodone) 5 mg PO Q4H PRN PRN Reason: Pain (moderate 4-6) Last Admin: 05/22/17 20:19 Dose: 5 mg Polyethylene Glycol (Miralax) 17 gm PO DAILY PRN PRN Reason: Constipation Senna/Docusate Sodium (Senna Plus) 2 tab PO BID PRN PRN Reason: Constipation Sertraline HCl (Zoloft) 100 mg PO DAILY [facility] Last Admin: 05/22/17 07:33 Dose: 100 mg Discontinued Medications Enoxaparin Sodium (Lovenox) 40 mg SUBCUT DAILY [facility] Oxycodone HCl (Oxycodone) Confirm Administered Dose 5 mg .ROUTE .STK-MED ONE Stop: 05/17/17 19:57 Last Admin: 05/17/17 20:00 Dose: 5 mg Oxycodone HCl (Oxycodone) Confirm Administered Dose 5 mg .ROUTE .STK-MED ONE Stop: 05/17/17 20:00 Last Admin: 05/17/17 20:00 Dose: 5 mg Oxycodone HCl (Oxycodone) 10 mg PO Q4H PRN PRN Reason: Pain (severe 7-10) Last Admin: 05/18/17 00:52 Dose: 10 mg Tuberculin PPD (Aplisol) 5 unit IDERM ONETIME ONE Stop: 05/18/17 08:08 Last Admin: 05/18/17 20:10 Dose: 5 unit - Exam Quality Assessment: Supplemental Oxygen General: Alert, Oriented HEENT: Mucous Membr. Moist/[place] Neck: Supple, Trachea Midline Lungs: Normal Respiratory Effort, Decreased Breath Sounds Cardiovascular: Regular Rate, Regular Rhythm GI/Abdominal Exam: Normal Bowel Sounds, Soft, No Distention Extremities: Normal Inspection, Normal Range of Motion, Non-Tender, No Pedal Edema Skin: Warm, Dry Wound/Incisions: Dressing Dry and Intact, Other (PT consult completed for wound care. BID dressing change.) Neurological: Normal Speech, Strength Equal Bilateral Psy/Mental Status: Alert, Normal Affect, Normal Mood - Problem List & Annotations (1) Disruption of surgical wound SNOMED Code(s): 75159744 Code(s): T81.31XA - DISRUPTION OF EXTERNAL OPERATION (SURGICAL) WOUND, NEC, INIT Status: Acute Current Visit: Yes (2) Malignant pleural effusion SNOMED Code(s): 06676751 Code(s): J91.0 - MALIGNANT PLEURAL EFFUSION Status: Acute Current Visit: Yes (3) Depression SNOMED Code(s): 85118011 Code(s): F32.9 - MAJOR DEPRESSIVE DISORDER, SINGLE EPISODE, UNSPECIFIED Status: Acute Current Visit: Yes (4) Diastolic heart failure SNOMED Code(s): 019443359 Code(s): I50.30 - UNSPECIFIED DIASTOLIC (CONGESTIVE) HEART FAILURE Status: Acute Current Visit: Yes (5) DVT prophylaxis SNOMED Code(s): 389288418 Code(s): UIW4007 - Status: Acute Current Visit: Yes (6) Constipation SNOMED Code(s): 60520872 Code(s): K59.00 - CONSTIPATION, UNSPECIFIED Status: Acute Current Visit: Yes (7) Hypertension SNOMED Code(s): 58888142 Code(s): I10 - ESSENTIAL (PRIMARY) HYPERTENSION Status: Acute Current Visit: Yes (8) Physical deconditioning SNOMED Code(s): 40042274086228 Code(s): R53.81 - OTHER MALAISE Status: Acute Current Visit: Yes (9) COPD (chronic obstructive pulmonary disease) SNOMED Code(s): 17108957 Code(s): J44.9 - CHRONIC OBSTRUCTIVE PULMONARY DISEASE, UNSPECIFIED Status : Chronic Current Visit: No - Problem List Review Problem List Initiated/Reviewed/Updated: Yes - Plan Plan:: 05-22-2017 Pt improving and strength is improved. Staff will continue with education with and pt for wound care and care of PleurX catheter drainage 2x/week. Plan to discharge to home in 2 weeks when strength improved and performing wound cares and PleurX catheter drain. A/P: Swing Bed program for deconditioning and wound dehisence with wound care: PT/OT continue for strengthening and wound care. Wound care and teach to perform wound care. Sales Engineer consult for nutrition evaluation. Zoloft daily for depression. Heart failure: Lasix 20 mg daily. Pleural effusion: Drain PleurX catheter 2x/week and teach on procedure for discharge. COPD stable: On nebulizers DVT prophylaxis: Continue with Lovenox Sq Constipation: Lactulose daily and miralax as needed. Hypertension: Metoprolol as ordered. GI prophylaxis: Pepcid as ordered. Pain medication as ordered. hypomagnesium: Slow mag. as ordered. Pt had been taking this bid at home. Monitor for loose stools.
[2017-05-23] MEDS: Acetaminophen 325 MG Tab PO PRN ×4 (06:01→19:56)
[2017-05-23] MEDS: oxyCODONE 5 MG Tab PO PRN ×4 (06:01→19:57)
[2017-05-23] MEDS: Famotidine 20 MG Tab PO SCH ×2 (07:56→19:51)
[2017-05-23] MEDS: Albuterol/Ipratropium 3.0-0.5 MG/3 ML Neb Soln INH SCH ×4 (07:56→19:50)
[2017-05-23] MEDS: Furosemide 20 MG Tab PO SCH (07:57)
[2017-05-23] MEDS: Sertraline 100 MG Tab PO SCH (07:57)
[2017-05-23] MEDS: Multivitamins with Iron/Calcium/Folic Acid/Minerals Tab PO SCH (07:57)
[2017-05-23] MEDS: Magnesium Chloride 64 MG Tab.ER PO SCH ×2 (07:57→19:51)
[2017-05-23] MEDS: Lidocaine 5% 700 MG Patch TOP SCH (07:57)
[2017-05-23] MEDS: Cholecalciferol (Vitamin D3) 1,000 Unit Tab PO SCH (07:57)
[2017-05-23] MEDS: Enoxaparin 40 MG/0.4 ML Syringe SUBCUT SCH (07:58)
[2017-05-23] MEDS: Metoprolol Tartrate 25 MG Tab PO SCH ×2 (07:58→19:50)
[2017-05-23] MEDS: Dronabinol 2.5 MG Cap PO SCH ×2 (10:47→16:21)
[2017-05-23] MEDS: Melatonin 3 MG Tab PO SCH (19:51)
[2017-05-23] MEDS: Remove Patch*LIDODERM TRDERM SCH (19:59)
[2017-05-24] MEDS: oxyCODONE 5 MG Tab PO PRN ×4 (01:14→17:21)
[2017-05-24] MEDS: Furosemide 20 MG Tab PO SCH (07:53)
[2017-05-24] MEDS: Metoprolol Tartrate 25 MG Tab PO SCH ×2 (07:53→21:37)
[2017-05-24] MEDS: Famotidine 20 MG Tab PO SCH ×2 (07:53→21:38)
[2017-05-24] MEDS: Sertraline 100 MG Tab PO SCH (07:53)
[2017-05-24] MEDS: Cholecalciferol (Vitamin D3) 1,000 Unit Tab PO SCH (07:53)
[2017-05-24] MEDS: Multivitamins with Iron/Calcium/Folic Acid/Minerals Tab PO SCH (07:53)
[2017-05-24] MEDS: Magnesium Chloride 64 MG Tab.ER PO SCH ×2 (07:53→21:37)
[2017-05-24] MEDS: Enoxaparin 40 MG/0.4 ML Syringe SUBCUT SCH (07:54)
[2017-05-24] MEDS: Albuterol/Ipratropium 3.0-0.5 MG/3 ML Neb Soln INH SCH ×4 (07:54→21:36)
[2017-05-24] MEDS: Lidocaine 5% 700 MG Patch TOP SCH (07:54)
[2017-05-24] MEDS: Dronabinol 2.5 MG Cap PO SCH ×2 (11:46→17:10)
[2017-05-24] MEDS: Acetaminophen 325 MG Tab PO PRN ×2 (11:50→17:21)
[2017-05-24] MEDS: Melatonin 3 MG Tab PO SCH (21:36)
[2017-05-24] MEDS: Remove Patch*LIDODERM TRDERM SCH (21:38)
[2017-05-25] MEDS: oxyCODONE 5 MG Tab PO PRN ×4 (02:15→21:02)
[2017-05-25] MEDS: Acetaminophen 325 MG Tab PO PRN ×3 (02:16→21:01)
[2017-05-25] MEDS: Cholecalciferol (Vitamin D3) 1,000 Unit Tab PO SCH (07:40)
[2017-05-25] MEDS: Sertraline 100 MG Tab PO SCH (07:40)
[2017-05-25] MEDS: Metoprolol Tartrate 25 MG Tab PO SCH ×2 (07:40→21:00)
[2017-05-25] MEDS: Furosemide 20 MG Tab PO SCH (07:40)
[2017-05-25] MEDS: Multivitamins with Iron/Calcium/Folic Acid/Minerals Tab PO SCH (07:40)
[2017-05-25] MEDS: Famotidine 20 MG Tab PO SCH ×2 (07:40→21:00)
[2017-05-25] MEDS: Magnesium Chloride 64 MG Tab.ER PO SCH ×2 (07:40→21:00)
[2017-05-25] MEDS: Lidocaine 5% 700 MG Patch TOP SCH (07:41)
[2017-05-25] MEDS: Albuterol/Ipratropium 3.0-0.5 MG/3 ML Neb Soln INH SCH ×4 (07:42→21:05)
[2017-05-25] MEDS: Enoxaparin 40 MG/0.4 ML Syringe SUBCUT SCH (07:42)
[2017-05-25] MEDS: Dronabinol 2.5 MG Cap PO SCH ×2 (12:30→16:57)
--- NOTE | 2017-05-25 17:23 | PCM.PN ---
- General Info Date of Service: 05/25/17 Admission Dx/Problem (Free Text): Admission Diagnosis/Problem Admission Diagnosis/Problem Disruption of external surgical wound Subjective Update: Pt states he is getting stronger. States he has an appointment in [place] on Monday. States his is learning about his dressing change and his PleurX catheter. Pt is interested in home O2 and walker and possibly, scooter, if needed when discharged. States he does go to the [facility] in [place] and would like items to go through there for these items. Functional Status: Reports: Tolerating Diet, Ambulating - Review of Systems General: Reports: No Symptoms HEENT: Reports: No Symptoms, Glasses Pulmonary: Reports: Cough Cardiovascular: Reports: No Symptoms Gastrointestinal: Reports: Decreased Appetite. Denies: Constipation, Diarrhea, Nausea, Vomiting Genitourinary: Reports: No Symptoms - Patient Data Vitals - Most Recent: Last Vital Signs Temp 98.8 F 05/24/17 20:00 Pulse 88 05/25/17 08:00 Resp 18 05/25/17 08:00 BP 114/67 05/25/17 08:00 Pulse Ox 100 05/25/17 08:00 Weight - Most Recent: 154 lb Med Orders - Current: Current Medications Acetaminophen (Tylenol) 650 mg PO Q4H PRN PRN Reason: MILD PAIN Last Admin: 05/25/17 07:51 Dose: 650 mg Albuterol (Proventil Neb Soln) 2.5 mg INH Q4H PRN PRN Reason: Shortness of Breath Albuterol/Ipratropium (Duoneb 3.0-0.5 Mg/3 Ml) 3 ml INH QID [facility] Last Admin: 05/25/17 16:57 Dose: 3 ml Cholecalciferol (Vitamin D3) 1,000 units PO DAILY [facility] Last Admin: 05/25/17 07:40 Dose: 1,000 units Dronabinol (Marinol) 2.5 mg PO BID@1100,1600 [facility] Last Admin: 05/25/17 16:57 Dose: 2.5 mg Enoxaparin Sodium (Lovenox) 40 mg SUBCUT DAILY [facility] Last Admin: 05/25/17 07:42 Dose: 40 mg Famotidine (Pepcid) 20 mg PO BID [facility] Last Admin: 05/25/17 07:40 Dose: 20 mg Furosemide (Lasix) 20 mg PO DAILY [facility] Last Admin: 05/25/17 07:40 Dose: 20 mg Lactulose (Chronulac) 10 gm PO DAILY PRN PRN Reason: CONSTIPATION Lidocaine (Lidoderm 5%) 700 mg TOP DAILY [facility] Last Admin: 05/25/17 07:41 Dose: 700 mg Magnesium Chloride (Mag-64) 64 mg PO BID [facility] Last Admin: 05/25/17 07:40 Dose: 64 mg Melatonin (Melatonin) 3 mg PO QPM [facility] Last Admin: 05/24/17 21:36 Dose: 3 mg Metoprolol Tartrate (Lopressor) 25 mg PO BID [facility] Last Admin: 05/25/17 07:40 Dose: 25 mg Miscellaneous Information (Remove Patch) 1 ea TRDERM Q24H [facility] Last Admin: 05/24/17 21:38 Dose: 1 ea Multivitamins/Minerals (Thera M Plus) 1 tab PO DAILY [facility] Last Admin: 05/25/17 07:40 Dose: 1 tab Ondansetron HCl (Zofran Odt) 4 mg PO Q6H PRN PRN Reason: Nausea Last Admin: 05/19/17 12:13 Dose: 4 mg Oxycodone HCl (Oxycodone) 5 mg PO Q4H PRN PRN Reason: Pain (moderate 4-6) Last Admin: 05/25/17 15:28 Dose: 5 mg Polyethylene Glycol (Miralax) 17 gm PO DAILY PRN PRN Reason: Constipation Senna/Docusate Sodium (Senna Plus) 2 tab PO BID PRN PRN Reason: Constipation Sertraline HCl (Zoloft) 100 mg PO DAILY [facility] Last Admin: 05/25/17 07:40 Dose: 100 mg Discontinued Medications Enoxaparin Sodium (Lovenox) 40 mg SUBCUT DAILY [facility] Lactulose (Chronulac) 20 gm PO BID [facility] Last Admin: 05/22/17 19:42 Dose: Not Given Oxycodone HCl (Oxycodone) Confirm Administered Dose 5 mg .ROUTE .STK-MED ONE Stop: 05/17/17 19:57 Last Admin: 05/17/17 20:00 Dose: 5 mg Oxycodone HCl (Oxycodone) Confirm Administered Dose 5 mg .ROUTE .STK-MED ONE Stop: 05/17/17 20:00 Last Admin: 05/17/17 20:00 Dose: 5 mg Oxycodone HCl (Oxycodone) 10 mg PO Q4H PRN PRN Reason: Pain (severe 7-10) Last Admin: 05/18/17 00:52 Dose: 10 mg Tuberculin PPD (Aplisol) 5 unit IDERM ONETIME ONE Stop: 05/18/17 08:08 Last Admin: 05/18/17 20:10 Dose: 5 unit - Exam Quality Assessment: Supplemental Oxygen General: Alert, Oriented, Cooperative, No Acute Distress HEENT: Mucous Membr. Moist/[place] Neck: Supple, Trachea Midline Lungs: Normal Respiratory Effort, Decreased Breath Sounds, Crackles (right base) . No: Rhonchi, Wheezing Cardiovascular: Regular Rate, Regular Rhythm GI/Abdominal Exam: Normal Bowel Sounds, Soft, Non-Tender Back Exam: Normal Inspection, Full Range of Motion Extremities: Normal Inspection, Non-Tender, Normal Capillary Refill Skin: Warm, Dry Wound/Incisions: Dressing Dry and Intact (Abdominal dressing intact and PleurX dressing intact and dry) Neurological: No New Focal Deficit, Normal Gait Psy/Mental Status: Alert, Normal Affect, Normal Mood - Problem List & Annotations (1) Disruption of surgical wound SNOMED Code(s): 51564515 Code(s): T81.31XA - DISRUPTION OF EXTERNAL OPERATION (SURGICAL) WOUND, NEC, INIT Status: Acute Current Visit: Yes (2) Malignant pleural effusion SNOMED Code(s): 03659095 Code(s): J91.0 - MALIGNANT PLEURAL EFFUSION Status: Acute Current Visit: Yes (3) Depression SNOMED Code(s): 17319490 Code(s): F32.9 - MAJOR DEPRESSIVE DISORDER, SINGLE EPISODE, UNSPECIFIED Status: Acute Current Visit: Yes (4) Diastolic heart failure SNOMED Code(s): 600925565 Code(s): I50.30 - UNSPECIFIED DIASTOLIC (CONGESTIVE) HEART FAILURE Status: Acute Current Visit: Yes (5) DVT prophylaxis SNOMED Code(s): 867411019 Code(s): BBR5765 - Status: Acute Current Visit: Yes (6) Constipation SNOMED Code(s): 85483391 Code(s): K59.00 - CONSTIPATION, UNSPECIFIED Status: Resolved Current Visit: Yes (7) Hypertension SNOMED Code(s): 99545961 Code(s): I10 - ESSENTIAL (PRIMARY) HYPERTENSION Status: Acute Current Visit: Yes (8) Physical deconditioning SNOMED Code(s): 61873718469986 Code(s): R53.81 - OTHER MALAISE Status: Acute Current Visit: Yes (9) COPD (chronic obstructive pulmonary disease) SNOMED Code(s): 44340884 Code(s): J44.9 - CHRONIC OBSTRUCTIVE PULMONARY DISEASE, UNSPECIFIED Status : Chronic Current Visit: No - Problem List Review Problem List Initiated/Reviewed/Updated: Yes - My Orders Last 24 Hours: My Active Orders 05/25/17 16:04 Consult to Physical Therapy [PT Evaluation and Treatment] [CONS] Routine 05/26/17 07:00 CBC WITH AUTO DIFF [HEME] Routine COMPREHENSIVE METABOLIC PN,CMP [CHEM] Routine - Plan Plan:: 05-25-2017 Pt improving and strength is improved. Staff will continue with education with and pt for wound care and care of PleurX catheter drainage 2x/week. Plan to discharge to home next week when strength improved and performing wound cares and PleurX catheter drain. A/P: Swing Bed program for deconditioning and wound dehisence with wound care: PT/OT continue for strengthening and wound care. Wound care and teach to perform wound care. Order today for PT for ambulation and check on oxygen saturation with activity. Heel Layer consult for nutrition evaluation. Zoloft daily for depression. Heart failure: Lasix 20 mg daily. Pleural effusion: Drain PleurX catheter 2x/week and teach on procedure for discharge. COPD stable: On nebulizers DVT prophylaxis: Continue with Lovenox Sq Constipation: Lactulose daily and miralax as needed. Hypertension: Metoprolol as ordered. GI prophylaxis: Pepcid as ordered. Pain medication as ordered. hypomagnesium: Slow mag. as ordered. Pt had been taking this bid at home. Monitor for loose stools.
[2017-05-25] MEDS: Melatonin 3 MG Tab PO SCH (21:01)
[2017-05-25] MEDS: Remove Patch*LIDODERM TRDERM SCH (21:05)
[2017-05-26] MEDS: Magnesium Chloride 64 MG Tab.ER PO SCH ×2 (08:07→21:09)
[2017-05-26] MEDS: Lidocaine 5% 700 MG Patch TOP SCH (08:07)
[2017-05-26] MEDS: Furosemide 20 MG Tab PO SCH (08:07)
[2017-05-26] MEDS: Sertraline 100 MG Tab PO SCH (08:07)
[2017-05-26] MEDS: Multivitamins with Iron/Calcium/Folic Acid/Minerals Tab PO SCH (08:07)
[2017-05-26] MEDS: Cholecalciferol (Vitamin D3) 1,000 Unit Tab PO SCH (08:08)
[2017-05-26] MEDS: Famotidine 20 MG Tab PO SCH ×2 (08:08→21:10)
[2017-05-26] MEDS: Metoprolol Tartrate 25 MG Tab PO SCH ×2 (08:08→21:10)
[2017-05-26] MEDS: Albuterol/Ipratropium 3.0-0.5 MG/3 ML Neb Soln INH SCH ×4 (08:08→21:10)
[2017-05-26] MEDS: Enoxaparin 40 MG/0.4 ML Syringe SUBCUT SCH (08:08)
[2017-05-26] MEDS: oxyCODONE 5 MG Tab PO PRN ×3 (08:19→21:13)
[2017-05-26] MEDS: Acetaminophen 325 MG Tab PO PRN ×3 (08:20→21:14)
[2017-05-26] MEDS: Dronabinol 2.5 MG Cap PO SCH ×2 (11:06→17:00)
[2017-05-26] MEDS: Melatonin 3 MG Tab PO SCH (21:09)
[2017-05-26] MEDS: Remove Patch*LIDODERM TRDERM SCH (21:10)
[2017-05-27] MEDS: oxyCODONE 5 MG Tab PO PRN ×6 (02:03→23:23)
[2017-05-27] MEDS: Cholecalciferol (Vitamin D3) 1,000 Unit Tab PO SCH (07:50)
[2017-05-27] MEDS: Magnesium Chloride 64 MG Tab.ER PO SCH ×2 (07:50→19:42)
[2017-05-27] MEDS: Furosemide 20 MG Tab PO SCH (07:50)
[2017-05-27] MEDS: Albuterol/Ipratropium 3.0-0.5 MG/3 ML Neb Soln INH SCH ×3 (07:50→19:40)
[2017-05-27] MEDS: Sertraline 100 MG Tab PO SCH (07:50)
[2017-05-27] MEDS: Famotidine 20 MG Tab PO SCH ×2 (07:51→19:42)
[2017-05-27] MEDS: Multivitamins with Iron/Calcium/Folic Acid/Minerals Tab PO SCH (07:51)
[2017-05-27] MEDS: Enoxaparin 40 MG/0.4 ML Syringe SUBCUT SCH (07:57)
[2017-05-27] MEDS: Metoprolol Tartrate 25 MG Tab PO SCH ×2 (08:00→19:41)
[2017-05-27] MEDS: Lidocaine 5% 700 MG Patch TOP SCH (08:04)
[2017-05-27] MEDS: Acetaminophen 325 MG Tab PO PRN ×4 (08:13→23:23)
[2017-05-27] MEDS: Dronabinol 2.5 MG Cap PO SCH (11:08)
[2017-05-27] MEDS: Melatonin 3 MG Tab PO SCH (19:42)
[2017-05-27] MEDS: Remove Patch*LIDODERM TRDERM SCH (20:37)
[2017-05-28] MEDS: Albuterol/Ipratropium 3.0-0.5 MG/3 ML Neb Soln INH SCH ×5 (07:47→19:32)
[2017-05-28] MEDS: Cholecalciferol (Vitamin D3) 1,000 Unit Tab PO SCH (07:47)
[2017-05-28] MEDS: Magnesium Chloride 64 MG Tab.ER PO SCH ×2 (07:47→19:32)
[2017-05-28] MEDS: Sertraline 100 MG Tab PO SCH (07:47)
[2017-05-28] MEDS: Furosemide 20 MG Tab PO SCH (07:47)
[2017-05-28] MEDS: Multivitamins with Iron/Calcium/Folic Acid/Minerals Tab PO SCH (07:47)
[2017-05-28] MEDS: oxyCODONE 5 MG Tab PO PRN ×4 (07:48→19:31)
[2017-05-28] MEDS: Lidocaine 5% 700 MG Patch TOP SCH (07:49)
[2017-05-28] MEDS: Metoprolol Tartrate 25 MG Tab PO SCH ×2 (07:49→19:38)
[2017-05-28] MEDS: Enoxaparin 40 MG/0.4 ML Syringe SUBCUT SCH (08:00)
[2017-05-28] MEDS: Famotidine 20 MG Tab PO SCH ×2 (08:00→19:30)
[2017-05-28] MEDS: Dronabinol 2.5 MG Cap PO SCH ×3 (09:10→15:21)
[2017-05-28] MEDS: Acetaminophen 325 MG Tab PO PRN ×2 (11:10→19:31)
[2017-05-28] MEDS: Melatonin 3 MG Tab PO SCH (19:32)
[2017-05-28] MEDS: Remove Patch*LIDODERM TRDERM SCH (20:00)
[2017-05-29] MEDS: oxyCODONE 5 MG Tab PO PRN ×2 (00:36→04:26)
[2017-05-29] MEDS: Acetaminophen 325 MG Tab PO PRN ×2 (00:37→04:28)
[2017-05-29] MEDS: Cholecalciferol (Vitamin D3) 1,000 Unit Tab PO SCH (07:29)
[2017-05-29] MEDS: Albuterol/Ipratropium 3.0-0.5 MG/3 ML Neb Soln INH SCH (07:29)
[2017-05-29] MEDS: Multivitamins with Iron/Calcium/Folic Acid/Minerals Tab PO SCH (07:30)
[2017-05-29] MEDS: Magnesium Chloride 64 MG Tab.ER PO SCH (07:30)
[2017-05-29] MEDS: Furosemide 20 MG Tab PO SCH (07:30)
[2017-05-29] MEDS: Sertraline 100 MG Tab PO SCH (07:30)
[2017-05-29] MEDS: Famotidine 20 MG Tab PO SCH (07:30)
[2017-05-29] MEDS: Metoprolol Tartrate 25 MG Tab PO SCH (07:31)
[2017-05-29 07:33] VITALS: BP 122/90
[2017-05-29] MEDS: Enoxaparin 40 MG/0.4 ML Syringe SUBCUT SCH (07:33)
[2017-05-29] MEDS: Lidocaine 5% 700 MG Patch TOP SCH (07:36)
--- NOTE | 2017-05-29 08:49 | PCM.DCSUM1 ---
Discharge Summary - Hospital Course HPI Initial Comments: 72 yr male discharge today, from Swing bed program for wound care, strengthening , and teaching cares of dressing change and PleuriX catheter drain 2x/ week. PT/OT goals met. Pt has appointment today with oncology, Dexter Skaggs. Supplies for PleuriX catheter ordered and reported to be in stock Monday for pt. Back-up plan for pt to obtain these supplies from equipment company in [place], today. Home oxygen to be ordered for pt to use with activity as needed with SpO2 decrease from 95% to 83% with activity. Hemoglobin is slowly showing improvement to 9.7 today. Slow decrease of WBC noted to 3,200 today. - Discharge Data Discharge Date: 05/29/17 Discharge Disposition: Home, Self-Care 01 Condition: Good - Discharge Diagnosis/Problem(s) (1) Disruption of surgical wound SNOMED Code(s): 65976014 ICD Code: T81.31XA - DISRUPTION OF EXTERNAL OPERATION (SURGICAL) WOUND, NEC, INIT Status: Acute Current Visit: Yes (2) Malignant pleural effusion SNOMED Code(s): 74237977 ICD Code: J91.0 - MALIGNANT PLEURAL EFFUSION Status: Acute Current Visit : Yes (3) Depression SNOMED Code(s): 25392147 ICD Code: F32.9 - MAJOR DEPRESSIVE DISORDER, SINGLE EPISODE, UNSPECIFIED Status: Acute Current Visit: Yes (4) Diastolic heart failure SNOMED Code(s): 677915449 ICD Code: I50.30 - UNSPECIFIED DIASTOLIC (CONGESTIVE) HEART FAILURE Status : Acute Current Visit: Yes (5) DVT prophylaxis SNOMED Code(s): 635644599 ICD Code: IFK5283 - Status: Acute Current Visit: Yes (6) Constipation SNOMED Code(s): 98064171 ICD Code: K59.00 - CONSTIPATION, UNSPECIFIED Status: Resolved Current Visit: Yes (7) Hypertension SNOMED Code(s): 48553238 ICD Code: I10 - ESSENTIAL (PRIMARY) HYPERTENSION Status: Acute Current Visit: Yes (8) Physical deconditioning SNOMED Code(s): 61544254360903 ICD Code: R53.81 - OTHER MALAISE Status: Acute Current Visit: Yes (9) COPD (chronic obstructive pulmonary disease) SNOMED Code(s): 86905902 ICD Code: J44.9 - CHRONIC OBSTRUCTIVE PULMONARY DISEASE, UNSPECIFIED Status : Chronic Current Visit: No - Patient Summary/Data Consults: Consultations 05/17/17 20:00 Consult to [employer] [CONS] Routine Comment: Physician Instructions: Quantity: OT Evaluation and Treatment [CONS] Routine Please Evaluate and Treat. OT Reason for Consult: Strengthening This query below is only for informational purposes and is not editable. PT Evaluation and Treatment [CONS] Routine Please Evaluate and Treat. PT Reason for Consult: Wound Care This query below is only for informational purposes and is not editable. 05/25/17 16:04 Consult to Physical Therapy [PT Evaluation and Treatment] [CONS] Routine Please Evaluate and Treat. PT Reason for Consult: Other (Type Response) Special Instructions: weaning of oxygen with activity This query below is only for informational purposes and is not editable. Admission Diagnosis/Problem: Disruption of external surgical wound - Patient Instructions Diet: Regular Diet as Tolerated Activity: As Tolerated Activity, Other: No lifting over 5 pounds Showering/Bathing: May Shower Wound/Incision Care: Keep Operative Site/Wound Site Clean and Dry, Change Dressing Daily Notify Provider of: Fever, Increased Pain - Discharge Plan Prescriptions/Med Rec: Magnesium Chloride [Mag-64] 64 mg PO BID #30 tab.er oxyCODONE 5 mg PO Q4H PRN #60 tablet PRN Reason: Pain (Moderate 4-6) Home Medications: Home Meds Metoprolol Tartrate [Lopressor] 25 mg PO BID 05/14/13 [History] Sertraline [Zoloft] 100 mg PO DAILY 05/14/13 [History] Acetaminophen [Tylenol Arthritis] 650 mg PO Q4H PRN 05/17/17 [History] Albuterol [Proventil Neb Soln] 2.5 mg INH Q4H PRN 05/17/17 [History] Albuterol/Ipratropium [DuoNeb 3.0-0.5 MG/3 ML] 3 ml INH Q6H PRN 05/17/17 [ History] Albuterol/Ipratropium [DuoNeb 3.0-0.5 MG/3 ML] 3 ml INH QID 05/17/17 [History] Cholecalciferol (Vitamin D3) [Vitamin D3] 2,000 unit PO DAILY 05/17/17 [History] Dronabinol 5 mg PO BID 05/17/17 [History] Famotidine 20 mg PO BID 05/17/17 [History] Furosemide [Lasix] 20 mg PO DAILY 05/17/17 [History] Lactulose 20 gm PO BID 05/17/17 [History] Lidocaine 5% [Lidoderm 5%] 1 patch TOP DAILY 05/17/17 [History] Melatonin 3 mg PO QPM 05/17/17 [History] Multivitamin [Men's Multi-Vitamin] 1 each PO DAILY 05/17/17 [History] Ondansetron [Zofran ODT] 4 mg PO Q6H PRN 05/17/17 [History] Polyethylene Glycol 3350 [MiraLAX] 17 gm PO DAILY PRN 05/17/17 [History] Sennosides/Docusate Sodium [Sennosides-Docusate Sodium] 2 each PO BID PRN [History] Magnesium Chloride [Mag-64] 64 mg PO BID #30 tab.er 05/29/17 [Rx] Remove Patch 1 ea TRDERM Q24H each 05/29/17 [Rx] oxyCODONE 5 mg PO Q4H PRN #60 tablet 05/29/17 [Rx] - General Info Date of Service: 05/29/17 Admission Dx/Problem (Free Text: Admission Diagnosis/Problem Admission Diagnosis/Problem Disruption of external surgical wound Subjective Update: Feeling well today and wanting to get on the road for appointment, coming in to take him. - Review of Systems General: Reports: No Symptoms HEENT: Reports: No Symptoms Pulmonary: Reports: Cough Cardiovascular: Reports: No Symptoms Gastrointestinal: Reports: No Symptoms Genitourinary: Reports: No Symptoms Musculoskeletal: Reports: No Symptoms Skin: Reports: Other (dressing change) Neurological: Reports: No Symptoms Psychiatric: Reports: No Symptoms - Patient Data Vitals - Most Recent: Last Vital Signs Temp 98 F 05/28/17 20:00 Pulse 99 05/29/17 07:31 Resp 18 05/28/17 20:00 BP 122/90 05/29/17 07:31 Pulse Ox 99 05/28/17 20:00 Weight - Most Recent: 154 lb I&O - Last 24 hours: Intake & Output 05/28/17 05/29/17 05/29/17 22:59 06:59 14:59 Intake Total 600 550 Balance 600 550 Lab Results - Last 24 hrs: Laboratory Results - last 24 hr 05/29/17 Range/Units 07:10 WBC 3.2 L (4.0-11.0) K/uL RBC 3.68 L (4.50-6.50) M/uL Hgb 9.7 L (13.0-18.0) g/dL Hct 30.9 L (40.0-54.0) % MCV 84 (76-96) fL MCH 26.4 L (27.0-32.0) pg MCHC 31.4 (31.0-35.0) g/dL RDW 16.8 H (11.0-16.0) % Plt Count 268 (150-400) K/uL MPV 9.1 (6.0-10.0) fL Neut % (Auto) 56.8 (45.0-70.0) % Lymph % (Auto) 24.8 (20.0-40.0) % [place] % (Auto) 12.4 H (3.0-10.0) % Eos % (Auto) 5.7 H (1.0-5.0) % Baso % (Auto) 0.3 (0.0-0.5) % Neut # (Auto) 1.79 L (2.00-7.50) K/uL Lymph # (Auto) 0.78 L (1.50-4.00) K/uL [place] # (Auto) 0.39 (0.20-0.80) K/uL Eos # (Auto) 0.18 (0.04-0.40) K/uL Baso # (Auto) 0.01 L (0.02-0.10) K/uL Med Orders - Current: Current Medications Acetaminophen (Tylenol) 650 mg PO Q4H PRN PRN Reason: MILD PAIN Last Admin: 05/29/17 04:28 Dose: 650 mg Albuterol (Proventil Neb Soln) 2.5 mg INH Q4H PRN PRN Reason: Shortness of Breath Albuterol/Ipratropium (Duoneb 3.0-0.5 Mg/3 Ml) 3 ml INH QID [facility] Last Admin: 05/29/17 07:29 Dose: 3 ml Cholecalciferol (Vitamin D3) 1,000 units PO DAILY [facility] Last Admin: 05/29/17 07:29 Dose: 1,000 units Dronabinol (Marinol) 2.5 mg PO BID@1100,1600 [facility] Last Admin: 05/28/17 15:21 Dose: 2.5 mg Enoxaparin Sodium (Lovenox) 40 mg SUBCUT DAILY [facility] Last Admin: 05/29/17 07:33 Dose: 40 mg Famotidine (Pepcid) 20 mg PO BID [facility] Last Admin: 05/29/17 07:30 Dose: 20 mg Furosemide (Lasix) 20 mg PO DAILY [facility] Last Admin: 05/29/17 07:30 Dose: 20 mg Lactulose (Chronulac) 10 gm PO DAILY PRN PRN Reason: CONSTIPATION Lidocaine (Lidoderm 5%) 700 mg TOP DAILY [facility] Last Admin: 05/29/17 07:36 Dose: 700 mg Magnesium Chloride (Mag-64) 64 mg PO BID [facility] Last Admin: 05/29/17 07:30 Dose: 64 mg Melatonin (Melatonin) 3 mg PO QPM [facility] Last Admin: 05/28/17 19:32 Dose: 3 mg Metoprolol Tartrate (Lopressor) 25 mg PO BID [facility] Last Admin: 05/29/17 07:31 Dose: 25 mg Miscellaneous Information (Remove Patch) 1 ea TRDERM Q24H [facility] Last Admin: 05/28/17 20:00 Dose: 1 ea Multivitamins/Minerals (Thera M Plus) 1 tab PO DAILY [facility] Last Admin: 05/29/17 07:30 Dose: 1 tab Ondansetron HCl (Zofran Odt) 4 mg PO Q6H PRN PRN Reason: Nausea Last Admin: 05/19/17 12:13 Dose: 4 mg Oxycodone HCl (Oxycodone) 5 mg PO Q4H PRN PRN Reason: Pain (moderate 4-6) Last Admin: 05/29/17 04:26 Dose: 5 mg Polyethylene Glycol (Miralax) 17 gm PO DAILY PRN PRN Reason: Constipation Last Admin: 05/28/17 11:10 Dose: 17 gm Senna/Docusate Sodium (Senna Plus) 2 tab PO BID PRN PRN Reason: Constipation Sertraline HCl (Zoloft) 100 mg PO DAILY [facility] Last Admin: 05/29/17 07:30 Dose: 100 mg Discontinued Medications Enoxaparin Sodium (Lovenox) 40 mg SUBCUT DAILY [facility] Lactulose (Chronulac) 20 gm PO BID [facility] Last Admin: 05/22/17 19:42 Dose: Not Given Oxycodone HCl (Oxycodone) Confirm Administered Dose 5 mg .ROUTE .STK-MED ONE Stop: 05/17/17 19:57 Last Admin: 05/17/17 20:00 Dose: 5 mg Oxycodone HCl (Oxycodone) Confirm Administered Dose 5 mg .ROUTE .STK-MED ONE Stop: 05/17/17 20:00 Last Admin: 05/17/17 20:00 Dose: 5 mg Oxycodone HCl (Oxycodone) 10 mg PO Q4H PRN PRN Reason: Pain (severe 7-10) Last Admin: 05/18/17 00:52 Dose: 10 mg Tuberculin PPD (Aplisol) 5 unit IDERM ONETIME ONE Stop: 05/18/17 08:08 Last Admin: 05/18/17 20:10 Dose: 5 unit - Exam Quality Assessment: Reports: Supplemental Oxygen General: Reports: Alert, Oriented, No Acute Distress HEENT: Reports: Mucous Membr. Moist/[place] Neck: Reports: Supple, Trachea Midline Lungs: Reports: Clear to Auscultation, Normal Respiratory Effort, Decreased Breath Sounds Cardiovascular: Reports: Regular Rate, Regular Rhythm GI/Abdominal Exam: Soft, Non-Tender Back Exam: Reports: Normal Inspection Extremities: Normal Inspection, Non-Tender, No Pedal Edema, Normal Capillary Refill Skin: Reports: Warm, Dry Wound/Incisions: Reports: Healing Well, Dressing Dry and Intact Neurological: Reports: No New Focal Deficit, Normal Gait, Normal Speech Psy/Mental Status: Reports: Alert, Normal Affect, Normal Mood *Q Meaningful Use (DIS) - VTE *Q VTE Criteria *Q: - Stroke *Q Stroke Criteria *Q: - AMI *Q AMI Criteria *Q:
== END 2017-05-29 09:30 | disposition home or self-care (01) | DRG 948 ==
LOC: LB.MS 05-17 15:37 → UNDOADMIN 05-17 15:37 → LB.MS 05-17 20:00
PROVIDERS: ADMIT Nurse Practitioner Family; ATTEND Nurse Practitioner Family
DX: R53.81 Other malaise (principal); J91.0 Malignant pleural effusion; I50.30 Unspecified diastolic (congestive) heart failure; I13.0 Hypertensive heart and chronic kidney disease with heart failure and stage 1 through stage 4 chronic kidney disease, or unspecified chronic kidney disease; T81.31XD Disruption of external operation (surgical) wound, not elsewhere classified, subsequent encounter; Z87.891 Personal history of nicotine dependence; N18.9 Chronic kidney disease, unspecified; Z66 Do not resuscitate; I25.10 Atherosclerotic heart disease of native coronary artery without angina pectoris; J44.9 Chronic obstructive pulmonary disease, unspecified; E78.5 Hyperlipidemia, unspecified; Z92.21 Personal history of antineoplastic chemotherapy; Z92.3 Personal history of irradiation; Z85.01 Personal history of malignant neoplasm of esophagus; Z85.46 Personal history of malignant neoplasm of prostate; I25.2 Old myocardial infarction; M54.9 Dorsalgia, unspecified; G89.29 Other chronic pain; F32.9 Major depressive disorder, single episode, unspecified; F41.9 Anxiety disorder, unspecified; Z95.1 Presence of aortocoronary bypass graft; Z87.01 Personal history of pneumonia (recurrent); Z95.5 Presence of coronary angioplasty implant and graft; H54.7 Unspecified visual loss; K59.00 Constipation, unspecified; E83.42 Hypomagnesemia; Z99.81 Dependence on supplemental oxygen; Z91.041 Radiographic dye allergy status; Z88.8 Allergy status to other drugs, medicaments and biological substances; Z11.1 Encounter for screening for respiratory tuberculosis
CPT/HCPCS: 36415; 80053; 83735; 85025; 86580; 97110-GO; 97161-GP; 97165-GO; 97530-GP; 97597-GP; A9270-GY; J1650; J7620

== ENCOUNTER 2017-11-18 14:49 | Emergency (ER) | payer MEDICARE, BC ==
[2017-11-18] MEDS ORDERED: oxyCODONE 5 MG Tab ONE (16:30)
[2017-11-18] MEDS ORDERED: oxyCODONE 5 MG Tab PO PRN (16:35)
--- NOTE | 2017-11-28 20:30 | ER ---
HISTORY OF PRESENT ILLNESS: I saw this patient briefly, who was requesting a refill of his oxycodone. The patient has been taking it for esophageal cancer and he [facility] me [facility]. The patient tells me he is out of his medication and the pain will get severe without it. The patient's past medical history is well documented and the patient is not having any other issues. After a few questions with the patient, I did give him a refill of 10 tablets to get him through until Monday morning, and I advised patient that he needs to either be calling the [facility] on Monday or his oncologist if he does not get his medications. No physical examination was done today. ADELAIDA/LISSETT /[id number]
== END 2017-11-18 16:40 | disposition home or self-care (01) ==
LOC: LB.ED 14:49
DX: Z76.0 Encounter for issue of repeat prescription (principal)
CPT/HCPCS: 88112; 99281; A9270

== ENCOUNTER 2018-06-24 07:46 | Emergency (ER) | payer OTHER, MEDICARE ==
--- NOTE | 2018-06-24 08:26 | EDM.PDOC ---
ED HPI GENERAL MEDICAL PROBLEM - General Stated Complaint: DIFFICULTY BREATHING Time Seen by Provider: 06/24/18 08:00 Source of Information: Reports: Patient History Limitations: Reports: No Limitations - History of Present Illness INITIAL COMMENTS - FREE TEXT/NARRATIVE: According to patient he claims that he has been having chest pain for close to a month or more. Pain is over the midchest.Hurts when he talks, takes deep breath or cough. Pain does not get worse with exertion. No sweating, but gets short of breath.He does have chronic cough, but has not got worse. He is short of breath all the time with exertion, but feels in the past 2-3 days got worse.He does use 2-2 1/2 liters O2 all the time, but is needing more. No sweating, no nausea or vomiting. Pt lung cancer and just done with his chemotherapy. Pt still smokes. Onset: Today Duration: Week(s): (more then a month), Intermittent, Waxing/Waning Location: Reports: Chest Quality: Reports: Ache Severity: Mild Worsens with: Reports: Breathing, Movement Associated Symptoms: Reports: Chest Pain, Cough, Shortness of Breath. Denies: Diaphoresis, Fever/Chills, Headaches, Nausea/Vomiting, Rash, Seizure, Syncope, Weakness - Related Data Allergies Allergy/AdvReac Type Severity Reaction Status Date / Time ANDRES Inhibitors Allergy Unknown Swollen Verified 02/03/18 03:38 Tongue CONTRAST DYE Allergy Swollen Uncoded 02/03/18 03:38 Tongue Home Meds: Home Meds Metoprolol Tartrate [Lopressor] 12.5 mg PO BID 05/14/13 [History] Sertraline [Zoloft] 100 mg PO DAILY 05/14/13 [History] Acetaminophen [Tylenol Arthritis] 650 mg PO Q4H PRN 05/17/17 [History] Albuterol [Proventil Neb Soln] 2.5 mg INH Q4H PRN 05/17/17 [History] Albuterol/Ipratropium [DuoNeb 3.0-0.5 MG/3 ML] 3 ml INH Q6H PRN 05/17/17 [ History] Albuterol/Ipratropium [DuoNeb 3.0-0.5 MG/3 ML] 3 ml INH QID 05/17/17 [History] Cholecalciferol (Vitamin D3) [Vitamin D3] 2,000 unit PO DAILY 05/17/17 [History] Dronabinol 5 mg PO BID 05/17/17 [History] Famotidine 20 mg PO BID 05/17/17 [History] Lactulose 20 gm PO BID 05/17/17 [History] Lidocaine 5% [Lidoderm 5%] 1 patch TOP DAILY 05/17/17 [History] Melatonin 3 mg PO QPM 05/17/17 [History] Multivitamin [Men's Multi-Vitamin] 1 each PO DAILY 05/17/17 [History] Ondansetron [Zofran ODT] 4 mg PO Q6H PRN 05/17/17 [History] Polyethylene Glycol 3350 [MiraLAX] 17 gm PO DAILY PRN 05/17/17 [History] Sennosides/Docusate Sodium [Sennosides-Docusate Sodium] 2 each PO BID PRN [History] Magnesium Chloride [Mag-64] 64 mg PO BID #30 tab.er 05/29/17 [Rx] Remove Patch 1 ea TRDERM Q24H each 05/29/17 [Rx] oxyCODONE 10 mg PO Q4H PRN 11/18/17 [History] Past Medical History HEENT History: Reports: Impaired Vision, Other (See Below) Other HEENT History: esophagous removed d/t CA, some hearing issues (tinnitus) Cardiovascular History: Reports: Bypass, Heart Murmur, Hypertension, ID, SOB on Exertion, Stents Respiratory History: Reports: COPD, Pneumonia, Recurrent, Pneumothorax Gastrointestinal History: Reports: Chronic Diarrhea, Colon Polyp, Hemorrhoids, Other (See Below) Other Gastrointestinal History: possible hernia in abdomen Genitourinary History: Reports: Chronic Renal Insuffiency, Prostate Disorder, Retention, Urinary, Urinary Incontinence, Other (See Below) Other Genitourinary History: prostate removed d/t CA Musculoskeletal History: Reports: Back Pain, Chronic, Osteoarthritis Psychiatric History: Reports: Anxiety, Depression, Mood Swings, PTSD Other Psychiatric History: ETOH abuse Hematologic History: Reports: Bleeding Disorder, Other (See Below) Other Hematologic History: clotting disorder " I clot quick" Oncologic (Cancer) History: Reports: Esophageal, Prostate, Other (See Below) Other Oncologic History: "some colon polyps were cancerous type I think" Dermatologic History: Reports: Eczema, Other (See Below) Other Dermatologic History: shingles - Infectious Disease History Infectious Disease History: Reports: Other (See Below) Other Infectious Disease History: ' i don t know, i think I have had it all" - Past Surgical History Cardiovascular Surgical History: Reports: Coronary Artery Bypass, Coronary Artery Stent Respiratory Surgical History: Reports: Other (See Below) Other Respiratory Surgeries/Procedures: chest tubes currently in place on R. chest tubes removed and healed on left GI Surgical History: Reports: Other (See Below) Other GI Surgeries/Procedures: stomnach attached top of esophagus with esophageal removal Male Surgical History: Reports: Prostatectomy Musculoskeletal Surgical History: Reports: Arthroscopic Procedure, Other (See Below) Other Musculoskeletal Surgeries/Procedures:: rotator cuff sx arthroscopy previous to sx Social & Family History - Family History Family Medical History: Noncontributory - Caffeine Use Caffeine Use: Reports: Coffee ED ROS GENERAL - Review of Systems Review Of Systems: See Below Constitutional: Denies: Fever, Chills HEENT: Denies: Rhinitis, Throat Pain Respiratory: Reports: Shortness of Breath, Pleuritic Chest Pain, Cough, Sputum. Denies: Wheezing Cardiovascular: Reports: Chest Pain. Denies: Lightheadedness GI/Abdominal: Denies: Abdominal Pain, Nausea, Vomiting : Denies: Dysuria, Flank Pain Musculoskeletal: Denies: Joint Pain, Joint Swelling Skin: Denies: Bruising, Pruritis, Rash Neurological: Denies: Confusion, Dizziness, Headache ED EXAM, GENERAL - Physical Exam Exam: See Below Exam Limited By: No Limitations General Appearance: Alert, WD/WN, No Apparent Distress Eye Exam: Bilateral Eye: EOMI, PERRL Ears: Normal External Exam, Normal Canal, Hearing Grossly Normal, Normal TMs Ear Exam: Bilateral Ear: Auricle Normal, Canal Normal, TM normal Nose: Normal Inspection, Normal Mucosa, No Blood Throat/Mouth: Normal Inspection, Normal Lips, Normal Teeth, Normal Gums, Normal Oropharynx, Normal Voice, No Airway Compromise Respiratory/Chest: No Respiratory Distress, No Accessory Muscle Use, Decreased Breath Sounds (all over the lung garibay), Crackles (posterior lungs) Cardiovascular: Normal Peripheral Pulses, Regular Rate, Rhythm, No Edema, No Gallop, No JVD, No Murmur, No Rub GI/Abdominal: Normal Bowel Sounds, Soft, Non-Tender, No Organomegaly, No Distention, No Abnormal Bruit, No Mass Extremities: Normal Inspection, Normal Range of Motion, Non-Tender, Normal Capillary Refill, No Pedal Edema Neurological: Alert, Oriented, CN II-XII Intact, Normal Cognition, Normal Gait, Normal Reflexes, No Motor/Sensory Deficits Skin Exam: Warm, Intact EKG INTERPRETATION EKG Date: 06/24/18 Time: 07:30 Rhythm: NSR [place]: Normal P-Wave: Present QRS: Normal ST-T: Normal QT: Prolonged Course - Vital Signs Text/Narrative:: Pt's EKG is in normal sinus rhythm. His Chest X-ray does show B/l pleural effusion unchanged from 01/2018. His CBC shows mild elevation of white count at 14K. BMP is stable. His troponin is negative. He has been maintaining his SPO 2 around 92-93% on room air at 2 litres, which is his baseline. His chest pain has been going on for more then a month, and hurts with talks , deep breathing and coughing. He does cough and get minimal clear sputum, which is chronic too. This appears like pleurisy asso with his cancer or might have developed viral pleurisy. His white count is up at 14K, he might be developing very early pneumonia, He did receive rocephin 1 gm IM. I have empirically covered with [facility]. Advised not smoking. - Orders/Labs/Meds Orders: Active Orders 24 hr Category Date Time Status EKG Documentation Completion [RC] ASDIRECTED Care 06/24/18 08:20 Active Chest 1V Frontal [CR] Stat Exams 06/24/18 08:18 Taken Labs: Laboratory Tests 06/24/18 06/24/18 Range/Units 08:30 08:30 WBC 14.5 H D (4.0-11.0) K/uL RBC 3.26 L (4.50-6.50) M/uL Hgb 11.7 L (13.0-18.0) g/dL Hct 34.4 L (40.0-54.0) % MCV 106 H (76-96) fL MCH 35.9 H (27.0-32.0) pg MCHC 34.0 (31.0-35.0) g/dL RDW 13.6 (11.0-16.0) % Plt Count 205 (150-400) K/uL MPV 9.2 (6.0-10.0) fL Neut % (Auto) 91.2 H (45.0-70.0) % Lymph % (Auto) 2.8 L (20.0-40.0) % [place] % (Auto) 5.9 (3.0-10.0) % Eos % (Auto) 0.0 L (1.0-5.0) % Baso % (Auto) 0.1 (0.0-0.5) % Neut # (Auto) 13.26 H (2.00-7.50) K/uL Lymph # (Auto) 0.41 L (1.50-4.00) K/uL [place] # (Auto) 0.86 H (0.20-0.80) K/uL Eos # (Auto) 0.00 L (0.04-0.40) K/uL Baso # (Auto) 0.01 L (0.02-0.10) K/uL Sodium 142 (136-145) mmol/L Potassium 4.2 (3.5-5.1) mmol/L Chloride 106 (98-107) mmol/L Carbon Dioxide 20.6 L (21.0-32.0) mmol/L Anion Gap 19.6 H (5.0-15.0) mmol/L BUN 14 D (8-26) mg/dL Creatinine 0.72 D (0.70-1.30) mg/dL Est Cr Clr Drug Dosing TNP Estimated GFR (MDRD) > 60 (>60) MLS/MIN BUN/Creatinine Ratio 19.4 (6-25) Glucose 143 H (74-100) mg/dL Calcium 8.5 (8.5-10.1) mg/dL Total Bilirubin 0.6 D (0.0-1.0) mg/dL AST 19 (15-37) U/L ALT 16 (12-78) U/L Alkaline Phosphatase 72 (46-116) U/L Troponin I 0.026 D (0.000-0.060) ng/mL Total Protein 6.4 (6.4-8.2) g/dL Albumin 2.6 L (3.4-5.0) g/dL Globulin 3.8 (2.2-4.2) g/dL Albumin/Globulin Ratio 0.7 L (0.8-2.0) Meds: Medications Discontinued Medications Generic Name Dose Route Start Last Admin Trade Name Natalie FERNANDEZ Reason Stop Dose Admin Ceftriaxone Sodium Confirm 06/24/18 09:16 06/24/18 09:16 Rocephin Administered 06/24/18 09:17 Not Given Dose 1 gm .ROUTE .STK-MED ONE Ceftriaxone Sodium 1 gm 06/24/18 09:16 06/24/18 09:14 Rocephin IM 06/24/18 09:17 1 gm ONETIME ONE Administration Departure - Departure Time of Disposition: :30 Disposition: Home, Self-Care 01 Condition: Good Clinical Impression: Pleurisy with effusion - Discharge Information *PRESCRIPTION DRUG MONITORING PROGRAM REVIEWED*: Not Applicable *COPY OF PRESCRIPTION DRUG MONITORING REPORT IN PATIENT TAYLOR: Not Applicable Additional Instructions: Pt's EKG is in normal sinus rhythm. His Chest X-ray does show B/l pleural effusion unchanged from 01/2018. His CBC shows mild elevation of white count at 14K. BMP is stable. His troponin is negative. He has been maintaining his SPO 2 around 92-93% on room air at 2 litres, which is his baseline. His chest pain has been going on for more then a month, and hurts with talks , deep breathing and coughing. He does cough and get minimal clear sputum, which is chronic too. This appears like pleurisy asso with his cancer or might have developed viral pleurisy. His white count is up at 14K, he might be developing very early pneumonia, He did receive rocephin 1 gm IM. I have empirically covered with [facility]. Advised not smoking. Pt does have Oncology followup coming ,advised to keep it. return to emergency room if symptoms worsen. - My Orders Last 24 Hours: My Active Orders 06/24/18 08:18 Chest 1V Frontal [CR] Stat 06/24/18 08:20 EKG Documentation Completion [RC] ASDIRECTED - Assessment/Plan Last 24 Hours: My Active Orders 06/24/18 08:18 Chest 1V Frontal [CR] Stat 06/24/18 08:20 EKG Documentation Completion [RC] ASDIRECTED
[2018-06-24] MEDS ORDERED: Nitroglycerin 0.4 MG Tab.SL ONE (08:30)
[2018-06-24] MEDS ORDERED: Azithromycin 250 MG Tab ONE (08:30)
[2018-06-24] MEDS ORDERED: cefTRIAXone 1 GM Vial ONE (09:16)
[2018-06-24] MEDS ORDERED: cefTRIAXone 1 GM Vial IM ONE (09:16)
--- NOTE | 2018-06-24 12:01 | CR ---
AP PORTABLE CHEST, 06/24/18 Comparison is made to a prior exam dated 02/02/18. The patient is in an apical lordotic position. The patient is status post median sternotomy The heart size is normal. The aorta is ectatic. There are densities in both lung bases consistent with basilar atelectasis or infiltrate. Pneumonia should be considered. There is chronic blunting of both costophrenic angles consistent with chronic pleural effusions or pleural scar. No pneumothorax. [id number] [facility]
== END 2018-06-24 09:27 | disposition home or self-care (01) ==
LOC: LB.ED 07:46
DX: J90 Pleural effusion, not elsewhere classified (principal); J44.9 Chronic obstructive pulmonary disease, unspecified; I25.2 Old myocardial infarction; N18.9 Chronic kidney disease, unspecified; I12.9 Hypertensive chronic kidney disease with stage 1 through stage 4 chronic kidney disease, or unspecified chronic kidney disease; F41.9 Anxiety disorder, unspecified; F32.9 Major depressive disorder, single episode, unspecified; Z88.8 Allergy status to other drugs, medicaments and biological substances; Z79.899 Other long term (current) drug therapy
CPT/HCPCS: 36415; 71045; 80053; 84484; 85025; 93005; 96372; 99285-25; A0425; A0429; A9270-GY; J0696

== ENCOUNTER 2018-06-25 11:38 | Inpatient (IN) | payer MEDICARE, OTHER ==
--- NOTE | 2018-06-25 13:43 | CR ---
AP PORTABLE CHEST, 06/25/18 Comparison is made to a prior exam dated 06/24/18. The patient is status post median sternotomy. The heart size is normal. There is progressive atelectasis and consolidation of the left lung base. The right lung base does appear slightly clearer than on the prior exam. There is persistent blunting of both costophrenic angles consistent with bilateral pleural effusions. No new abnormalities. No pneumothorax. [id number] [facility]
--- NOTE | 2018-06-25 15:45 | PCM.HP ---
H&P History of Present Illness - General Date of Service: 06/25/18 Admit Problem/Dx: Admission Diagnosis/Problem Admission Diagnosis/Problem Shortness of breath Source of Information: Patient, Family History Limitations: Reports: No Limitations - History of Present Illness Initial Comments - Free Text/Narative: This is a 73yo M here with concerns of shortness of breath. He states he feels worse today and just short of breath. He denies any chest pain, no fever or chills, but does feel weak and short of breath. He does check his oxygen at home with a oximeter and notes it was low prior to EMS arrival. Per EMS he was placed on oxygen in the rig and his saturations improved from 80's immediately and patient immediately felt better with sats at 98%. Onset of Symptoms: Reports: Gradual Duration of Symptoms: Reports: Constant, Waxing/Waning Location: Reports: Chest Severity: Moderate Worsens with: Reports: Movement Associated Symptoms: Reports: Shortness of Breath, Weakness - Related Data Allergies/Adverse Reactions: Allergies Allergy/AdvReac Type Severity Reaction Status Date / Time ANDRES Inhibitors Allergy Unknown Swollen Verified 02/03/18 03:38 Tongue CONTRAST DYE Allergy Swollen Uncoded 02/03/18 03:38 Tongue Home Medications: Home Meds Multivitamin [Men's Multi-Vitamin] 1 each PO DAILY 05/17/17 [History] Sennosides/Docusate Sodium [Sennosides-Docusate Sodium] 2 each PO BID PRN [History] oxyCODONE 10 mg PO Q4H PRN 11/18/17 [History] Azithromycin [Zithromax] 250 mg PO DAILY 06/25/18 [History] Dicyclomine HCl [Bentyl] 10 mg PO ASDIRECTED 06/25/18 [History] Megestrol Acetate 10 ml PO DAILY 06/25/18 [History] Morphine [MS Contin] 15 mg PO Q12HR 06/25/18 [History] Prochlorperazine Maleate [Compazine] 10 mg PO QID PRN 06/25/18 [History] Past Medical History HEENT History: Reports: Impaired Vision, Other (See Below) Other HEENT History: esophagous removed d/t CA, some hearing issues (tinnitus) Cardiovascular History: Reports: Bypass, Heart Murmur, Hypertension, MS, SOB on Exertion, Stents Respiratory History: Reports: COPD, Pneumonia, Recurrent, Pneumothorax Gastrointestinal History: Reports: Chronic Diarrhea, Colon Polyp, Hemorrhoids, Other (See Below) Other Gastrointestinal History: possible hernia in abdomen Genitourinary History: Reports: Chronic Renal Insuffiency, Prostate Disorder, Retention, Urinary, Urinary Incontinence, Other (See Below) Other Genitourinary History: prostate removed d/t CA Musculoskeletal History: Reports: Back Pain, Chronic, Osteoarthritis Psychiatric History: Reports: Anxiety, Depression, Mood Swings, PTSD Other Psychiatric History: ETOH abuse Hematologic History: Reports: Bleeding Disorder, Other (See Below) Other Hematologic History: clotting disorder " I clot quick" Oncologic (Cancer) History: Reports: Esophageal, Prostate, Other (See Below) Other Oncologic History: "some colon polyps were cancerous type I think" Dermatologic History: Reports: Eczema, Other (See Below) Other Dermatologic History: shingles - Infectious Disease History Infectious Disease History: Reports: Other (See Below) Other Infectious Disease History: ' i don t know, i think I have had it all" - Past Surgical History Cardiovascular Surgical History: Reports: Coronary Artery Bypass, Coronary Artery Stent Respiratory Surgical History: Reports: Other (See Below) Other Respiratory Surgeries/Procedures: chest tubes currently in place on R. chest tubes removed and healed on left GI Surgical History: Reports: Other (See Below) Other GI Surgeries/Procedures: stomnach attached top of esophagus with esophageal removal Male Surgical History: Reports: Prostatectomy Musculoskeletal Surgical History: Reports: Arthroscopic Procedure, Other (See Below) Other Musculoskeletal Surgeries/Procedures:: rotator cuff sx arthroscopy previous to sx Social & Family History - Family History Family Medical History: Noncontributory - Tobacco Use Smoking Status *Q: Current Every Day Smoker Years of Tobacco use: 55 Packs/Tins Daily: 0.3 - Caffeine Use Caffeine Use: Reports: Coffee, Soda - Alcohol Use Days Per Week of Alcohol Use: 7 Number of Drinks Per Day: 3 Total Drinks Per Week: 21 - Recreational Drug Use Recreational Drug Use: No H&P Review of Systems - Review of Systems: Review Of Systems: ROS reveals no pertinent complaints other than HPI. Exam - Exam Exam: See Below - Vital Signs Vital Signs: Last Vital Signs Temp 37.1 C 06/25/18 14:48 Pulse 77 06/25/18 14:48 Resp 18 06/25/18 14:48 BP 118/79 06/25/18 14:48 Pulse Ox 100 06/25/18 14:48 Weight: 52.617 kg - Exam Quality Assessment: Supplemental Oxygen General: Alert, Oriented, Cooperative HEENT: PERRLA, Conjunctiva Clear, EACs Clear, EOMI Neck: Supple, Trachea Midline Lungs: Normal Respiratory Effort, Rales, Rhonchi Cardiovascular: Regular Rate, Regular Rhythm GI/Abdominal Exam: Normal Bowel Sounds Back Exam: Normal Inspection Extremities: Normal Inspection Peripheral Pulses: 2+: Dorsalis Pedis (L), Dorsalis Pedis (R) Skin: Warm, Dry, Intact Neurological: Cranial Nerves Intact, Reflexes Equal Bilateral Neuro Extensive - Mental Status: Alert, Oriented x3, Normal Mood/Affect - Patient Data Lab Results Last 24 hrs: Laboratory Results - last 24 hr 06/25/18 06/25/18 06/25/18 Range/Units 12:30 12:30 12:30 WBC 11.5 H D (4.0-11.0) K/uL RBC 3.14 L (4.50-6.50) M/uL Hgb 11.2 L (13.0-18.0) g/dL Hct 33.4 L (40.0-54.0) % MCV 106 H (76-96) fL MCH 35.7 H (27.0-32.0) pg MCHC 33.5 (31.0-35.0) g/dL RDW 13.5 (11.0-16.0) % Plt Count 204 (150-400) K/uL MPV 9.7 (6.0-10.0) fL Neut % (Auto) 91.4 H (45.0-70.0) % Lymph % (Auto) 3.6 L (20.0-40.0) % [place] % (Auto) 4.2 (3.0-10.0) % Eos % (Auto) 0.7 L (1.0-5.0) % Baso % (Auto) 0.1 (0.0-0.5) % Neut # (Auto) 10.53 H (2.00-7.50) K/uL Lymph # (Auto) 0.42 L (1.50-4.00) K/uL [place] # (Auto) 0.49 (0.20-0.80) K/uL Eos # (Auto) 0.08 (0.04-0.40) K/uL Baso # (Auto) 0.01 L (0.02-0.10) K/uL PT 10.9 (9.0-11.5) sec INR 1.1 (1.0-3.5) ABG pH (7.35-7.45) ABG pCO2 (35-45) mmHg ABG pO2 (80-105) mmHg ABG HCO3 (22-26) mmol/L ABG O2 Saturation (95-98) % ABG Base Excess (-2-2) González Test O2 Delivery Device Sodium 142 (136-145) mmol/L Potassium 3.4 L (3.5-5.1) mmol/L Chloride 106 (98-107) mmol/L Carbon Dioxide 24.5 (21.0-32.0) mmol/L Anion Gap 14.9 (5.0-15.0) mmol/L BUN 15 (8-26) mg/dL Creatinine 0.61 L (0.70-1.30) mg/dL Est Cr Clr Drug Dosing TNP Estimated GFR (MDRD) > 60 (>60) MLS/MIN BUN/Creatinine Ratio 24.6 (6-25) Glucose 144 H (74-100) mg/dL Lactic Acid (0.90-1.70) mmol/L Calcium 9.0 (8.5-10.1) mg/dL Total Bilirubin 0.3 D (0.0-1.0) mg/dL AST 29 (15-37) U/L ALT 21 (12-78) U/L Alkaline Phosphatase 73 (46-116) U/L Troponin I 0.026 (0.000-0.060) ng/mL B-Natriuretic Peptide 3752 H (0-125) pg/mL Total Protein 6.3 L (6.4-8.2) g/dL Albumin 2.5 L (3.4-5.0) g/dL Globulin 3.8 (2.2-4.2) g/dL Albumin/Globulin Ratio 0.7 L (0.8-2.0) TSH, Ultra Sensitive 3.397 D (0.358-3.740) uIU/mL Urine Color Urine Appearance (CLEAR) Urine pH (5.0-8.0) Ur Specific [place] (1.003-1.030) Urine Protein (NEGATIVE) mg/dL Urine Glucose (UA) (NEGATIVE) mg/dL Urine Ketones (NEGATIVE) mg/dL Urine Occult Blood (NEGATIVE) Urine Nitrite (NEGATIVE) Urine Bilirubin (NEGATIVE) Urine Urobilinogen (0.2-1.0) E.U./dL Ur Leukocyte Esterase (NEGATIVE) Urine RBC /HPF Urine WBC /HPF 06/25/18 06/25/18 06/25/18 Range/Units 12:30 12:30 13:06 WBC (4.0-11.0) K/uL RBC (4.50-6.50) M/uL Hgb (13.0-18.0) g/dL Hct (40.0-54.0) % MCV (76-96) fL MCH (27.0-32.0) pg MCHC (31.0-35.0) g/dL RDW (11.0-16.0) % Plt Count (150-400) K/uL MPV (6.0-10.0) fL Neut % (Auto) (45.0-70.0) % Lymph % (Auto) (20.0-40.0) % [place] % (Auto) (3.0-10.0) % Eos % (Auto) (1.0-5.0) % Baso % (Auto) (0.0-0.5) % Neut # (Auto) (2.00-7.50) K/uL Lymph # (Auto) (1.50-4.00) K/uL [place] # (Auto) (0.20-0.80) K/uL Eos # (Auto) (0.04-0.40) K/uL Baso # (Auto) (0.02-0.10) K/uL PT (9.0-11.5) sec INR (1.0-3.5) ABG pH 7.41 (7.35-7.45) ABG pCO2 37 (35-45) mmHg ABG pO2 66 L (80-105) mmHg ABG HCO3 23 (22-26) mmol/L ABG O2 Saturation 93 L (95-98) % ABG Base Excess -2 (-2-2) González Test claims examiner O2 Delivery Device Nasal cannula Sodium (136-145) mmol/L Potassium (3.5-5.1) mmol/L Chloride (98-107) mmol/L Carbon Dioxide (21.0-32.0) mmol/L Anion Gap (5.0-15.0) mmol/L BUN (8-26) mg/dL Creatinine (0.70-1.30) mg/dL Est Cr Clr Drug Dosing Estimated GFR (MDRD) (>60) MLS/MIN BUN/Creatinine Ratio (6-25) Glucose (74-100) mg/dL Lactic Acid 0.71 L (0.90-1.70) mmol/L Calcium (8.5-10.1) mg/dL Total Bilirubin (0.0-1.0) mg/dL AST (15-37) U/L ALT (12-78) U/L Alkaline Phosphatase (46-116) U/L Troponin I (0.000-0.060) ng/mL B-Natriuretic Peptide (0-125) pg/mL Total Protein (6.4-8.2) g/dL Albumin (3.4-5.0) g/dL Globulin (2.2-4.2) g/dL Albumin/Globulin Ratio (0.8-2.0) TSH, Ultra Sensitive (0.358-3.740) uIU/mL Urine Color Yellow Urine Appearance Clear (CLEAR) Urine pH 5.5 (5.0-8.0) Ur Specific [place] >= 1.030 (1.003-1.030) Urine Protein Negative (NEGATIVE) mg/dL Urine Glucose (UA) Negative (NEGATIVE) mg/dL Urine Ketones Negative (NEGATIVE) mg/dL Urine Occult Blood Negative (NEGATIVE) Urine Nitrite Negative (NEGATIVE) Urine Bilirubin Negative (NEGATIVE) Urine Urobilinogen 0.2 (0.2-1.0) E.U./dL Ur Leukocyte Esterase Negative (NEGATIVE) Urine RBC Not seen /HPF Urine WBC Not seen /HPF Result Diagrams: 06/26/18 07:50 06/26/18 07:50 - Problem List (1) Shortness of breath SNOMED Code(s): 167185775 ICD Code: R06.02 - SHORTNESS OF BREATH Status: Acute Priority: High Current Visit: Yes (2) Hypoxic episode SNOMED Code(s): 874657271 ICD Code: R09.02 - HYPOXEMIA Status: Acute Priority: High Current Visit : Yes (3) Physical deconditioning SNOMED Code(s): 39420721878076 ICD Code: R53.81 - OTHER MALAISE Status: Acute Priority: High Current Visit: Yes (4) COPD (chronic obstructive pulmonary disease) SNOMED Code(s): 65580707 ICD Code: J44.9 - CHRONIC OBSTRUCTIVE PULMONARY DISEASE, UNSPECIFIED Status : Chronic Priority: High Current Visit: Yes Qualifiers: COPD type: unspecified COPD Qualified Code(s): J44.9 - Chronic obstructive pulmonary disease, unspecified Problem List Initiated/Reviewed/Updated: Yes Orders Last 24hrs: Active Orders 24 hr Category Date Time Status Admission Status [Patient Status] [ADT] Routine ADT 06/25/18 15:40 Active Patient Status [ADT] Routine ADT 06/25/18 15:43 Ordered Oxygen Therapy [RC] PRN Care 06/25/18 15:43 Ordered Vital Signs [RC] Q4H Care 06/25/18 15:43 Ordered Assessment/Plan Comment:: Patient placed in observation for management and monitoring of oxygen saturation and shortness of breath. Patient has improved symptomatically and continues to have chronic shortness of breath despite improved oxygen saturation. Patient stable and has no further concerns at this time.
[2018-06-25] MEDS ORDERED: DOCUSATE SODIUM PO PRN (17:02)
[2018-06-25] MEDS ORDERED: SENNOSIDES PO PRN (17:02)
[2018-06-25] MEDS: methylPREDNISolone Sodium Succinate 125 MG/2 ML SDV IVPUSH SCH (17:57)
[2018-06-25] MEDS ORDERED: cefTRIAXone 1 GM in Sodium Chloride 0.9% 50 ML IV SCH (18:00)
[2018-06-25] MEDS: PROCHLORPERAZINE 10 MG PO PRN (20:25)
[2018-06-25] MEDS: MORPHINE 15 MG PO SCH (20:25)
[2018-06-26] MEDS: methylPREDNISolone Sodium Succinate 125 MG/2 ML SDV IVPUSH SCH ×2 (06:12→17:57)
[2018-06-26] MEDS: MEGESTROL 40 MG/ML PO SCH (08:26)
[2018-06-26] MEDS: MORPHINE 15 MG PO SCH ×2 (08:29→20:36)
[2018-06-26] MEDS: MULTIVITAMIN PO SCH (08:30)
[2018-06-26] MEDS: AZITHROMYCIN 250 MG PO SCH (08:31)
[2018-06-26] MEDS: DICYCLOMINE 10 MG PO PRN ×2 (08:32→17:00)
[2018-06-26] MEDS: PROCHLORPERAZINE 10 MG PO PRN ×2 (08:35→17:00)
[2018-06-26] MEDS: Sodium Chloride 0.9% 10 ML Syringe FLUSH PRN (08:36)
[2018-06-26] MEDS: cefTRIAXone 1 GM in Sodium Chloride 0.9% 50 ML IV SCH (13:08)
--- NOTE | 2018-06-26 17:47 | PCM.PN ---
- General Info Date of Service: 06/26/18 Subjective Update: Patient states he is feeling short of breath but does note that he has been this way for the past month or so. This is confirmed by his that he has been chronically short of breath for at least one month. He does have new onset loose stools that are watery the past day. He denies any fever or chills or other concerns. Functional Status: Reports: Tolerating Diet - Review of Systems General: Reports: Weakness HEENT: Reports: No Symptoms Pulmonary: Reports: Shortness of Breath Cardiovascular: Reports: No Symptoms Gastrointestinal: Reports: Decreased Appetite Genitourinary: Reports: No Symptoms Musculoskeletal: Reports: No Symptoms Skin: Reports: No Symptoms Neurological: Reports: Weakness Psychiatric: Reports: No Symptoms - Patient Data Vitals - Most Recent: Last Vital Signs Temp 36.7 C 06/26/18 16:00 Pulse 79 06/26/18 16:00 Resp 18 06/26/18 16:00 BP 141/90 H 06/26/18 16:00 Pulse Ox 98 06/26/18 16:00 Weight - Most Recent: 52.617 kg Lab Results Last 24 Hours: Laboratory Results - last 24 hr 06/26/18 06/26/18 Range/Units 07:50 07:50 WBC 7.4 D (4.0-11.0) K/uL RBC 3.39 L (4.50-6.50) M/uL Hgb 12.2 L (13.0-18.0) g/dL Hct 35.8 L (40.0-54.0) % MCV 106 H (76-96) fL MCH 36.0 H (27.0-32.0) pg MCHC 34.1 (31.0-35.0) g/dL RDW 13.5 (11.0-16.0) % Plt Count 231 (150-400) K/uL MPV 9.6 (6.0-10.0) fL Neut % (Auto) 94.5 H (45.0-70.0) % Lymph % (Auto) 3.9 L (20.0-40.0) % [place] % (Auto) 1.6 L (3.0-10.0) % Eos % (Auto) 0.0 L (1.0-5.0) % Baso % (Auto) 0.0 (0.0-0.5) % Neut # (Auto) 6.98 (2.00-7.50) K/uL Lymph # (Auto) 0.29 L (1.50-4.00) K/uL [place] # (Auto) 0.12 L (0.20-0.80) K/uL Eos # (Auto) 0.00 L (0.04-0.40) K/uL Baso # (Auto) 0.00 L (0.02-0.10) K/uL Sodium 145 (136-145) mmol/L Potassium 3.8 (3.5-5.1) mmol/L Chloride 107 (98-107) mmol/L Carbon Dioxide 25.5 (21.0-32.0) mmol/L Anion Gap 16.3 H (5.0-15.0) mmol/L BUN 10 D (8-26) mg/dL Creatinine 0.53 L (0.70-1.30) mg/dL Est Cr Clr Drug Dosing 92.38 mL/min Estimated GFR (MDRD) > 60 (>60) MLS/MIN BUN/Creatinine Ratio 18.9 (6-25) Glucose 134 H (74-100) mg/dL Calcium 8.4 L (8.5-10.1) mg/dL Med Orders - Current: Current Medications Azithromycin (Zithromax) 250 mg PO DAILY [facility] Last Admin: 06/26/18 08:31 Dose: 250 mg Dicyclomine HCl (Bentyl) 10 mg PO QID PRN PRN Reason: ABDOMINAL CRAMPING Last Admin: 06/26/18 17:00 Dose: 10 mg Ceftriaxone Sodium 1 gm/ (Sodium Chloride) 50 mls @ 200 mls/hr IV Q24H [facility] Last Admin: 06/26/18 13:08 Dose: 200 mls/hr Isosorbide Mononitrate (Imdur) 15 mg PO DAILY [facility] Megestrol Acetate (Megace 40 Mg/Ml Susp) 400 mg PO DAILY [facility] Last Admin: 06/26/18 08:26 Dose: 400 mg Methylprednisolone Sodium Succinate (Solu-Medrol) 125 mg IVPUSH Q12H [facility] Last Admin: 06/26/18 06:12 Dose: 125 mg Morphine Sulfate (Ms Contin) 15 mg PO Q12HR [facility] Last Admin: 06/26/18 08:29 Dose: 15 mg Multivitamin [Men's Multi-Vitamin] Own Med 1 each PO DAILY [facility] Last Admin: 06/26/18 08:30 Dose: 1 each Oxycodone HCl (Oxycodone) 10 mg PO Q4H PRN PRN Reason: Pain (moderate 4-6) Prochlorperazine Maleate (Compazine) 10 mg PO QID PRN PRN Reason: NAUSEA / VOMITING Last Admin: 06/26/18 17:00 Dose: 10 mg Senna/Docusate Sodium (Senna Plus) 2 tab PO BID PRN PRN Reason: Constipation Sodium Chloride (Saline Flush) 10 ml FLUSH ASDIRECTED PRN PRN Reason: Keep Vein Open Last Admin: 06/26/18 08:36 Dose: 10 ml Discontinued Medications Ceftriaxone Sodium 1 gm/ (Sodium Chloride) 50 mls @ 200 mls/hr IV Q24H [facility] Last Admin: 06/25/18 17:57 Dose: 200 mls/hr - Exam Quality Assessment: Supplemental Oxygen General: Alert, Oriented, Cooperative HEENT: Pupils Equal, Pupils Reactive, EOMI, Mucous Membr. Moist/[place] Neck: Supple Lungs: Normal Respiratory Effort, Decreased Breath Sounds, Rales, Rhonchi Cardiovascular: Regular Rate, Regular Rhythm GI/Abdominal Exam: Normal Bowel Sounds, Soft, Non-Tender Back Exam: Normal Inspection Extremities: Normal Inspection - Problem List & Annotations (1) Shortness of breath SNOMED Code(s): 644070322 Code(s): R06.02 - SHORTNESS OF BREATH Status: Acute Priority: High Current Visit: Yes (2) Hypoxic episode SNOMED Code(s): 178204075 Code(s): R09.02 - HYPOXEMIA Status: Acute Priority: High Current Visit : Yes (3) Physical deconditioning SNOMED Code(s): 53432567638408 Code(s): R53.81 - OTHER MALAISE Status: Acute Priority: High Current Visit: Yes (4) COPD (chronic obstructive pulmonary disease) SNOMED Code(s): 91962528 Code(s): J44.9 - CHRONIC OBSTRUCTIVE PULMONARY DISEASE, UNSPECIFIED Status : Chronic Priority: High Current Visit: Yes Qualifiers: COPD type: unspecified COPD Qualified Code(s): J44.9 - Chronic obstructive pulmonary disease, unspecified - Problem List Review Problem List Initiated/Reviewed/Updated: Yes - My Orders Last 24 Hours: My Active Orders 06/25/18 17:02 Docusate Sodium/Sennosides [Senna Plus] 2 tab PO BID PRN oxyCODONE 10 mg PO Q4H PRN 06/25/18 17:15 Dicyclomine [Bentyl] 10 mg PO QID PRN 06/25/18 18:00 methylPREDNISolone Sod Succ [Solu-MEDROL] 125 mg IVPUSH Q12H 06/25/18 20:00 Morphine [MS Contin] 15 mg PO Q12HR Prochlorperazine [Compazine] 10 mg PO QID PRN 06/25/18 21:46 Sodium Chloride 0.9% [Saline Flush] 10 ml FLUSH ASDIRECTED PRN 06/26/18 07:00 CULTURE MRSA SURVEY [RM] Routine 06/26/18 08:00 Azithromycin [Zithromax] 250 mg PO DAILY Megestrol [Megace 40 MG/ML Susp] 400 mg PO DAILY Multivitamin [Men's Multi-Vitamin] 1 each PO DAILY 06/26/18 10:30 cefTRIAXone [Rocephin] 1 gm Sodium Chloride 0.9% [Normal Saline] 50 ml IV Q24H 06/26/18 17:01 CLOSTRIDIUM DIFFICILE BY PCR [] Routine 06/26/18 Dinner Mechanical Soft Diet [DIET] 06/27/18 08:00 Isosorbide Mononitrate [Imdur] 15 mg PO DAILY - Plan Plan:: Patient placed in observation for management and monitoring of oxygen saturation and shortness of breath. Patient has improved symptomatically and continues to have chronic shortness of breath despite improved oxygen saturation. Patient stable and has no further concerns at this time. 06/26/18 Discussed with patient and regarding smoking - both have agreed to quit. Patient also states he will quit drinking as well. Discussed shortness of breath and baseline. He does appear to be near or at baseline at this time. He continues to be weak but it is likely a long standing issue and chronic. We will continue current management and consider discharge tomorrow. No changes to medications and will contact [facility] for f/u management of home oxygen concentrator. marketing services rep will follow up at his home tomorrow.
[2018-06-26] MEDS: OXYCODONE 5 MG PO PRN (20:38)
[2018-06-26] MEDS ORDERED: Isosorbide Mononitrate 30 MG Tab.ER ONE (20:46)
[2018-06-26] MEDS: Isosorbide Mononitrate 30 MG Tab.ER PO SCH (20:49)
[2018-06-27] MEDS: methylPREDNISolone Sodium Succinate 125 MG/2 ML SDV IVPUSH SCH ×2 (06:34→17:35)
[2018-06-27] MEDS: PROCHLORPERAZINE 10 MG PO PRN (09:22)
[2018-06-27] MEDS: DICYCLOMINE 10 MG PO PRN ×2 (09:23→17:16)
[2018-06-27] MEDS: OXYCODONE 5 MG PO PRN (09:23)
[2018-06-27] MEDS: MORPHINE 15 MG PO SCH ×2 (09:26→21:10)
[2018-06-27] MEDS: Isosorbide Mononitrate 30 MG Tab.ER PO SCH (10:08)
[2018-06-27] MEDS: MULTIVITAMIN PO SCH (10:09)
[2018-06-27] MEDS: AZITHROMYCIN 250 MG PO SCH (10:09)
[2018-06-27] MEDS: MEGESTROL 40 MG/ML PO SCH (10:12)
[2018-06-27] MEDS: cefTRIAXone 1 GM in Sodium Chloride 0.9% 50 ML IV SCH (10:18)
--- NOTE | 2018-06-27 10:31 | PCM.PN ---
- General Info Date of Service: 06/27/18 Subjective Update: Patient is a 73yo who is very stoic but feeling very weak, short of breath, nauseated and extremely tired with just cleaning himself in the bathroom to the point of vomiting. Patient states he does not feel well and is unable to move much. Patient denies fever or chills. He has chronic shortness of breath but states it is worse. He denies any chest pain. His gait is unstable. He is not tolerating his diet as well for the past 2 days. His nausea has worsened. His weakness and shortness of breath overall has worsened. He does have some small times of what appears to be improvement to baseline but has fallen back to severe shortness of breath with any little amount of exertion. - Review of Systems General: Reports: Weakness. Denies: Appetite HEENT: Reports: No Symptoms Pulmonary: Reports: Shortness of Breath Cardiovascular: Reports: Dyspnea on Exertion Gastrointestinal: Reports: Decreased Appetite Genitourinary: Reports: Incontinence Skin: Reports: Other (poor skin turgor) Neurological: Reports: Difficulty Walking, Weakness Psychiatric: Reports: No Symptoms - Patient Data Vitals - Most Recent: Last Vital Signs Temp 36.9 C 06/27/18 06:34 Pulse 81 06/27/18 06:34 Resp 20 06/27/18 06:34 BP 152/89 H 06/27/18 10:08 Pulse Ox 98 06/27/18 06:34 Weight - Most Recent: 52.617 kg [place] Results Last 24 Hours: Microbiology 06/26/18 17:01 Clostridioides difficile (PCR) - Final Stool / Feces Med Orders - Current: Current Medications Azithromycin (Zithromax) 250 mg PO DAILY [facility] Last Admin: 06/27/18 10:09 Dose: 250 mg Dicyclomine HCl (Bentyl) 10 mg PO QID PRN PRN Reason: ABDOMINAL CRAMPING Last Admin: 06/27/18 09:23 Dose: 10 mg Ceftriaxone Sodium 1 gm/ (Sodium Chloride) 50 mls @ 200 mls/hr IV Q24H [facility] Last Admin: 06/27/18 10:18 Dose: 200 mls/hr Isosorbide Mononitrate (Imdur) 15 mg PO DAILY [facility] Last Admin: 06/27/18 10:08 Dose: 15 mg Megestrol Acetate (Megace 40 Mg/Ml Susp) 400 mg PO DAILY [facility] Last Admin: 06/27/18 10:12 Dose: 400 mg Methylprednisolone Sodium Succinate (Solu-Medrol) 125 mg IVPUSH Q12H [facility] Last Admin: 06/27/18 06:34 Dose: 125 mg Morphine Sulfate (Ms Contin) 15 mg PO Q12HR [facility] Last Admin: 06/27/18 09:26 Dose: 15 mg Multivitamin [Men's Multi-Vitamin] Own Med 1 each PO DAILY [facility] Last Admin: 06/27/18 10:09 Dose: 1 each Oxycodone HCl (Oxycodone) 10 mg PO Q4H PRN PRN Reason: Pain (moderate 4-6) Last Admin: 06/27/18 09:23 Dose: 10 mg Prochlorperazine Maleate (Compazine) 10 mg PO QID PRN PRN Reason: NAUSEA / VOMITING Last Admin: 06/27/18 09:22 Dose: 10 mg Senna/Docusate Sodium (Senna Plus) 2 tab PO BID PRN PRN Reason: Constipation Sodium Chloride (Saline Flush) 10 ml FLUSH ASDIRECTED PRN PRN Reason: Keep Vein Open Last Admin: 06/26/18 08:36 Dose: 10 ml Discontinued Medications Ceftriaxone Sodium 1 gm/ (Sodium Chloride) 50 mls @ 200 mls/hr IV Q24H [facility] Last Admin: 06/25/18 17:57 Dose: 200 mls/hr Isosorbide Mononitrate (Imdur) Confirm Administered Dose 30 mg .ROUTE .STK-MED ONE Stop: 06/26/18 20:47 Last Admin: 06/26/18 22:05 Dose: Not Given - Exam Quality Assessment: Supplemental Oxygen General: Alert, Oriented, Cooperative HEENT: Pupils Equal, Pupils Reactive, EOMI Neck: Supple Lungs: Decreased Breath Sounds, Rhonchi Cardiovascular: Regular Rate, Regular Rhythm GI/Abdominal Exam: Soft, Non-Tender, Abnormal Bowel Sounds (decreased) Back Exam: Normal Inspection Extremities: Normal Inspection, Other (thin exxtremities) Skin: Warm, Dry, Intact Neurological: No New Focal Deficit Psy/Mental Status: Alert, Normal Affect, Normal Mood - Problem List & Annotations (1) Shortness of breath SNOMED Code(s): 989532691 Code(s): R06.02 - SHORTNESS OF BREATH Status: Chronic Priority: High Current Visit: Yes (2) Hypoxic episode SNOMED Code(s): 170809507 Code(s): R09.02 - HYPOXEMIA Status: Resolved Priority: High Current Visit: Yes (3) Physical deconditioning SNOMED Code(s): 70251728255666 Code(s): R53.81 - OTHER MALAISE Status: Chronic Priority: High Current Visit: Yes (4) COPD (chronic obstructive pulmonary disease) SNOMED Code(s): 19857329 Code(s): J44.9 - CHRONIC OBSTRUCTIVE PULMONARY DISEASE, UNSPECIFIED Status : Chronic Priority: High Current Visit: Yes Qualifiers: COPD type: unspecified COPD Qualified Code(s): J44.9 - Chronic obstructive pulmonary disease, unspecified (5) Palliative care patient SNOMED Code(s): 788705038 Code(s): Z51.5 - ENCOUNTER FOR PALLIATIVE CARE Status: Chronic Priority: High Current Visit: Yes (6) Pneumonia SNOMED Code(s): 432962513 Code(s): J18.9 - PNEUMONIA, UNSPECIFIED ORGANISM Status: Suspected Priority: High Current Visit: Yes Qualifiers: Pneumonia type: due to unspecified organism Laterality: bilateral Lung location: lower lobe of lung Qualified Code(s): J18.1 - Lobar pneumonia, unspecified organism (7) CHF (congestive heart failure) SNOMED Code(s): 37742391 Code(s): I50.9 - HEART FAILURE, UNSPECIFIED Status: Acute Priority: High Current Visit: Yes Qualifiers: Heart failure type: unspecified Heart failure chronicity: acute on chronic Qualified Code(s): I50.9 - Heart failure, unspecified - Problem List Review Problem List Initiated/Reviewed/Updated: Yes - My Orders Last 24 Hours: My Active Orders 06/26/18 10:30 cefTRIAXone [Rocephin] 1 gm Sodium Chloride 0.9% [Normal Saline] 50 ml IV Q24H 06/26/18 Dinner Mechanical Soft Diet [DIET] 06/27/18 08:00 Isosorbide Mononitrate [Imdur] 15 mg PO DAILY 06/27/18 09:00 Ready for Discharge [RC] PER UNIT ROUTINE 06/27/18 10:14 EKG Documentation Completion [RC] ASDIRECTED EKG 12 Lead [EK] Stat 06/27/18 10:23 CBC WITH AUTO DIFF [HEME] Stat COMPREHENSIVE METABOLIC PN,CMP [CHEM] Stat 06/27/18 10:24 Patient Status [ADT] Routine OT Evaluation and Treatment [CONS] Routine PT Evaluation and Treatment [CONS] Routine - Plan Plan:: Patient placed in observation for management and monitoring of oxygen saturation and shortness of breath. Patient has improved symptomatically and continues to have chronic shortness of breath despite improved oxygen saturation. Patient stable and has no further concerns at this time. 06/26/18 Discussed with patient and regarding smoking - both have agreed to quit. Patient also states he will quit drinking as well. Discussed shortness of breath and baseline. He does appear to be near or at baseline at this time. He continues to be weak but it is likely a long standing issue and chronic. We will continue current management and consider discharge tomorrow. No changes to medications and will contact [facility] for f/u management of home oxygen concentrator. administrative services director will follow up at his home tomorrow. 06/27/18 Patient plan was to discharge home today. Patient began feeling weaker, nauseated the past couple days despite improved WBC and labs. Although labs are stable, clinically he has deteriorated. He is a [place] and very stoic and would like to go home but his symptoms of shortness of breath have worsened and the concern is that a possible pneumonia may be worsening. He has congestive heart failure which appears worse with his presentation and possible CHF exacerbation due to his severe worsening of shortness of breath on very minimal exertion. He is unable to do any daily cares from the dyspnea and I fear that any form of exertion may cause excess strain on his health and heart worsening his CHF with concomitant pneumonia. He requires a full admission for a failed outpatient pneumonia treatment and CHF exacerbation at this time. Patient is also a palliative care patient. We will follow labs and clinical picture very closely.
[2018-06-28] MEDS: PROCHLORPERAZINE 10 MG PO PRN ×2 (04:21→16:34)
[2018-06-28] MEDS: methylPREDNISolone Sodium Succinate 125 MG/2 ML SDV IVPUSH SCH (05:00)
[2018-06-28] MEDS: Isosorbide Mononitrate 30 MG Tab.ER PO SCH (08:00)
[2018-06-28] MEDS: MORPHINE 15 MG PO SCH ×2 (08:02→19:21)
[2018-06-28] MEDS: MEGESTROL 40 MG/ML PO SCH (08:03)
[2018-06-28] MEDS: MULTIVITAMIN PO SCH (08:03)
[2018-06-28] MEDS: cefTRIAXone 1 GM in Sodium Chloride 0.9% 50 ML IV SCH (10:42)
[2018-06-28] MEDS: OXYCODONE 5 MG PO PRN ×2 (12:52→19:22)
[2018-06-28] MEDS: DICYCLOMINE 10 MG PO PRN ×3 (12:53→16:36)
[2018-06-28] MEDS ORDERED: Acetaminophen 500 MG Tab PO PRN (16:46)
[2018-06-28] MEDS ORDERED: Acetaminophen 500 MG Tab ONE (16:52)
[2018-06-28] MEDS: Loperamide 2 MG Cap PO PRN (16:55)
--- NOTE | 2018-06-28 17:46 | CR ---
DATE OF SERVICE: 06/28/18 CLINICAL DATA: pneumonia AP PORTABLE CHEST: Comparison is made to a prior exam dated 06/25/18. There is persistent atelectasis and consolidation in the left lung base. Again pneumonia should be considered. The left lung base does, however, appear slightly clearer than the prior exam. There is persistent blunting of both costophrenic angles consistent with bilateral pleural effusions. These do appear to be slightly increased from the prior study. The pulmonary vasculature does appear to be slightly more prominent than on the prior exam suggesting mild pulmonary venous congestion. The exam is otherwise unchanged. [id number] [facility]
[2018-06-29] MEDS: DICYCLOMINE 10 MG PO PRN ×2 (08:20→16:41)
[2018-06-29] MEDS: PROCHLORPERAZINE 10 MG PO PRN ×2 (08:20→16:40)
[2018-06-29] MEDS: MORPHINE 15 MG PO SCH ×2 (08:21→19:42)
[2018-06-29] MEDS: MULTIVITAMIN PO SCH (08:22)
[2018-06-29] MEDS: Isosorbide Mononitrate 30 MG Tab.ER PO SCH (08:22)
[2018-06-29] MEDS: OXYCODONE 5 MG PO PRN ×2 (08:26→19:43)
[2018-06-29] MEDS: methylPREDNISolone Sodium Succinate 125 MG/2 ML SDV IVPUSH SCH (08:27)
[2018-06-29] MEDS: MEGESTROL 40 MG/ML PO SCH (08:27)
--- NOTE | 2018-06-29 09:05 | PCM.PN ---
- General Info Date of Service: 06/28/18 Subjective Update: Patient states he continues to be short of breath. He denies any fever or chills. He states he feels cold and very weak. He is unable to get up and exert himself without getting extremely short of breath. He doesn't feel well and just lies in bed. Functional Status: Reports: Other (worsening shortness of breath) - Review of Systems General: Reports: Weakness, Fatigue Pulmonary: Reports: Shortness of Breath Cardiovascular: Reports: Dyspnea on Exertion Gastrointestinal: Reports: Decreased Appetite Genitourinary: Reports: Incontinence Musculoskeletal: Reports: No Symptoms Skin: Reports: No Symptoms Neurological: Reports: Weakness Psychiatric: Reports: No Symptoms - Patient Data Vitals - Most Recent: Last Vital Signs Temp 36.8 C 06/29/18 08:00 Pulse 84 06/29/18 08:00 Resp 20 06/28/18 19:23 BP 135/85 06/29/18 08:22 Pulse Ox 96 06/29/18 08:00 Weight - Most Recent: 52.617 kg I&O - Last 24 Hours: Intake & Output 06/28/18 06/29/18 06/29/18 22:59 06:59 14:59 Intake Total 50 Balance 50 Lab Results Last 24 Hours: Laboratory Results - last 24 hr 06/28/18 Range/Units 07:10 Sodium 142 (136-145) mmol/L Potassium 3.3 L (3.5-5.1) mmol/L Chloride 102 (98-107) mmol/L Carbon Dioxide 30.1 (21.0-32.0) mmol/L Anion Gap 13.2 (5.0-15.0) mmol/L BUN 15 (8-26) mg/dL Creatinine 0.57 L (0.70-1.30) mg/dL Est Cr Clr Drug Dosing 85.90 mL/min Estimated GFR (MDRD) > 60 (>60) MLS/MIN BUN/Creatinine Ratio 26.3 H (6-25) Glucose 140 H (74-100) mg/dL Calcium 8.0 L (8.5-10.1) mg/dL Total Bilirubin 0.2 (0.0-1.0) mg/dL AST 72 H (15-37) U/L ALT 76 (12-78) U/L Alkaline Phosphatase 70 (46-116) U/L Troponin I 0.025 (0.000-0.060) ng/mL Total Protein 6.1 L (6.4-8.2) g/dL Albumin 2.4 L (3.4-5.0) g/dL Globulin 3.7 (2.2-4.2) g/dL Albumin/Globulin Ratio 0.7 L (0.8-2.0) Sloan Results Last 24 Hours: Microbiology 06/27/18 10:30 Aerobic Blood Culture - Preliminary Blood NO GROWTH AFTER 1 DAY Anaerobic Blood Culture - Preliminary NO GROWTH AFTER 1 DAY 06/27/18 10:50 Aerobic Blood Culture - Preliminary Blood NO GROWTH AFTER 1 DAY Anaerobic Blood Culture - Preliminary NO GROWTH AFTER 1 DAY Med Orders - Current: Current Medications Acetaminophen (Tylenol Extra Strength) 500 mg PO Q6H PRN PRN Reason: Fever Last Admin: 06/28/18 16:55 Dose: 500 mg Dicyclomine HCl (Bentyl) 10 mg PO QID PRN PRN Reason: ABDOMINAL CRAMPING Last Admin: 06/29/18 08:20 Dose: 10 mg Ceftriaxone Sodium 1 gm/ (Sodium Chloride) 50 mls @ 200 mls/hr IV Q24H [facility] Stop: 07/03/18 11:00 Last Admin: 06/28/18 10:42 Dose: 200 mls/hr Isosorbide Mononitrate (Imdur) 15 mg PO DAILY [facility] Last Admin: 06/29/18 08:22 Dose: 15 mg Loperamide HCl (Imodium) 2 mg PO ASDIRECTED PRN PRN Reason: Diarrhea Last Admin: 06/28/18 16:55 Dose: 2 mg Megestrol Acetate (Megace 40 Mg/Ml Susp) 400 mg PO DAILY [facility] Last Admin: 06/29/18 08:27 Dose: 400 mg Methylprednisolone Sodium Succinate (Solu-Medrol) 125 mg IVPUSH DAILY [facility] Last Admin: 06/29/18 08:27 Dose: 125 mg Morphine Sulfate (Ms Contin) 15 mg PO Q12HR [facility] Last Admin: 06/29/18 08:21 Dose: 15 mg Multivitamin [Men's Multi-Vitamin] Own Med 1 each PO DAILY [facility] Last Admin: 06/29/18 08:22 Dose: 1 each Oxycodone HCl (Oxycodone) 10 mg PO Q4H PRN PRN Reason: Pain (moderate 4-6) Last Admin: 06/29/18 08:26 Dose: 10 mg Prochlorperazine Maleate (Compazine) 10 mg PO QID PRN PRN Reason: NAUSEA / VOMITING Last Admin: 06/29/18 08:20 Dose: 10 mg Senna/Docusate Sodium (Senna Plus) 2 tab PO BID PRN PRN Reason: Constipation Sodium Chloride (Saline Flush) 10 ml FLUSH ASDIRECTED PRN PRN Reason: Keep Vein Open Last Admin: 06/26/18 08:36 Dose: 10 ml Discontinued Medications Acetaminophen (Tylenol Extra Strength) Confirm Administered Dose 500 mg .ROUTE .Aristotl-MED ONE Stop: 06/28/18 16:53 Last Admin: 06/28/18 17:02 Dose: Not Given Azithromycin (Zithromax) 250 mg PO DAILY [facility] Last Admin: 06/27/18 10:09 Dose: 250 mg Ceftriaxone Sodium 1 gm/ (Sodium Chloride) 50 mls @ 200 mls/hr IV Q24H [facility] Last Admin: 06/25/18 17:57 Dose: 200 mls/hr Isosorbide Mononitrate (Imdur) Confirm Administered Dose 30 mg .ROUTE .Aristotl-MED ONE Stop: 06/26/18 20:47 Last Admin: 06/26/18 22:05 Dose: Not Given Methylprednisolone Sodium Succinate (Solu-Medrol) 125 mg IVPUSH Q12H [facility] Last Admin: 06/28/18 05:00 Dose: 125 mg - Exam Quality Assessment: Supplemental Oxygen General: Alert, Oriented, Cooperative, Moderate Distress HEENT: Pupils Equal, Pupils Reactive, EOMI Neck: Supple Lungs: Decreased Breath Sounds, Rhonchi Cardiovascular: Regular Rate, Regular Rhythm GI/Abdominal Exam: Soft, Non-Tender, Abnormal Bowel Sounds (decreased Bowel sounds) Back Exam: Normal Inspection Extremities: Pedal Edema Peripheral Pulses: 2+: Dorsalis Pedis (L), Dorsalis Pedis (R) Skin: Warm, Dry, Intact Neurological: No New Focal Deficit Psy/Mental Status: Alert, Normal Affect, Normal Mood - Problem List & Annotations (1) Shortness of breath SNOMED Code(s): 753322286 Code(s): R06.02 - SHORTNESS OF BREATH Status: Chronic Priority: High Current Visit: Yes (2) Hypoxic episode SNOMED Code(s): 607364711 Code(s): R09.02 - HYPOXEMIA Status: Resolved Priority: High Current Visit: Yes (3) Physical deconditioning SNOMED Code(s): 29590218195267 Code(s): R53.81 - OTHER MALAISE Status: Chronic Priority: High Current Visit: Yes (4) COPD (chronic obstructive pulmonary disease) SNOMED Code(s): 88863056 Code(s): J44.9 - CHRONIC OBSTRUCTIVE PULMONARY DISEASE, UNSPECIFIED Status : Chronic Priority: High Current Visit: Yes Qualifiers: COPD type: unspecified COPD Qualified Code(s): J44.9 - Chronic obstructive pulmonary disease, unspecified (5) Palliative care patient SNOMED Code(s): 620035208 Code(s): Z51.5 - ENCOUNTER FOR PALLIATIVE CARE Status: Chronic Priority: High Current Visit: Yes (6) Pneumonia SNOMED Code(s): 078707851 Code(s): J18.9 - PNEUMONIA, UNSPECIFIED ORGANISM Status: Suspected Priority: High Current Visit: Yes Qualifiers: Pneumonia type: due to unspecified organism Laterality: bilateral Lung location: lower lobe of lung Qualified Code(s): J18.1 - Lobar pneumonia, unspecified organism (7) CHF (congestive heart failure) SNOMED Code(s): 77096746 Code(s): I50.9 - HEART FAILURE, UNSPECIFIED Status: Acute Priority: High Current Visit: Yes Qualifiers: Heart failure type: unspecified Heart failure chronicity: acute on chronic Qualified Code(s): I50.9 - Heart failure, unspecified - Problem List Review Problem List Initiated/Reviewed/Updated: Yes - My Orders Last 24 Hours: My Active Orders 06/28/18 16:45 Loperamide [Imodium] 2 mg PO ASDIRECTED PRN 06/28/18 16:46 Acetaminophen [Tylenol Extra Strength] 500 mg PO Q6H PRN 06/29/18 08:00 methylPREDNISolone Sod Succ [Solu-MEDROL] 125 mg IVPUSH DAILY - Plan Plan:: Patient placed in observation for management and monitoring of oxygen saturation and shortness of breath. Patient has improved symptomatically and continues to have chronic shortness of breath despite improved oxygen saturation. Patient stable and has no further concerns at this time. 06/26/18 Discussed with patient and regarding smoking - both have agreed to quit. Patient also states he will quit drinking as well. Discussed shortness of breath and baseline. He does appear to be near or at baseline at this time. He continues to be weak but it is likely a long standing issue and chronic. We will continue current management and consider discharge tomorrow. No changes to medications and will contact [facility] [place] for f/u management of home oxygen concentrator. food services director will follow up at his home tomorrow. 06/27/18 Patient plan was to discharge home today. Patient began feeling weaker, nauseated the past couple days despite improved WBC and labs. Although labs are stable, clinically he has deteriorated. He is a and very stoic and would like to go home but his symptoms of shortness of breath have worsened and the concern is that a possible pneumonia may be worsening. He has congestive heart failure which appears worse with his presentation and possible CHF exacerbation due to his severe worsening of shortness of breath on very minimal exertion. He is unable to do any daily cares from the dyspnea and I fear that any form of exertion may cause excess strain on his health and heart worsening his CHF with concomitant pneumonia. He requires a full admission for a failed outpatient pneumonia treatment and CHF exacerbation at this time. Patient is also a palliative care patient. We will follow labs and clinical picture very closely. 06/28/18 Patient continues to feel weak and fatigued. He has dyspnea with minimal exertion. WBC has elevated and we will continue to monitor and consider change of antibiotics. Chest x-ray shows slight improvement of the consolidation/ pneumonia. There is worsening of vascular congestion and we will start IV lasix and monitor strict in's and out's and daily weights for his worsening CHF.
[2018-06-29] MEDS: cefTRIAXone 1 GM in Sodium Chloride 0.9% 50 ML IV SCH (10:44)
--- NOTE | 2018-06-29 15:16 | PCM.PN ---
- General Info Date of Service: 06/29/18 Subjective Update: Patient continues to have shortness of breath on exertion. He denies fever or chills but does feel weak and tired. He is not eating as much at this time. Patient denies any improvement today but denies feeling any worse. Functional Status: Reports: Tolerating Diet, Ambulating - Review of Systems General: Reports: Weakness HEENT: Reports: No Symptoms Pulmonary: Reports: Shortness of Breath Cardiovascular: Reports: Dyspnea on Exertion Gastrointestinal: Reports: No Symptoms Genitourinary: Reports: Incontinence Musculoskeletal: Reports: No Symptoms Skin: Reports: No Symptoms Neurological: Reports: Weakness Psychiatric: Reports: No Symptoms - Patient Data Vitals - Most Recent: Last Vital Signs Temp 36.8 C 06/29/18 08:00 Pulse 84 06/29/18 08:00 Resp 20 06/28/18 19:23 BP 135/85 06/29/18 08:22 Pulse Ox 96 06/29/18 08:00 Weight - Most Recent: 52.617 kg [place] Results Last 24 Hours: Microbiology 06/27/18 10:30 Aerobic Blood Culture - Preliminary Blood NO GROWTH AFTER 2 DAYS Anaerobic Blood Culture - Preliminary NO GROWTH AFTER 2 DAYS 06/27/18 10:50 Aerobic Blood Culture - Preliminary Blood NO GROWTH AFTER 2 DAYS Anaerobic Blood Culture - Preliminary NO GROWTH AFTER 2 DAYS 06/27/18 14:30 MRSA Surveillance Culture - Final Nares, Unspecified NO MRSA ISOLATED Med Orders - Current: Current Medications Acetaminophen (Tylenol Extra Strength) 500 mg PO Q6H PRN PRN Reason: Fever Last Admin: 06/28/18 16:55 Dose: 500 mg Dicyclomine HCl (Bentyl) 10 mg PO QID PRN PRN Reason: ABDOMINAL CRAMPING Last Admin: 06/29/18 08:20 Dose: 10 mg Furosemide (Lasix) 20 mg IVPUSH DAILY [facility] Ceftriaxone Sodium 1 gm/ (Sodium Chloride) 50 mls @ 200 mls/hr IV Q24H [facility] Stop: 07/03/18 11:00 Last Admin: 06/29/18 10:44 Dose: 200 mls/hr Isosorbide Mononitrate (Imdur) 15 mg PO DAILY [facility] Last Admin: 06/29/18 08:22 Dose: 15 mg Lactobacillus Acidophilus (Acidolphilus Extra Strength) 1 tab PO DAILY [facility] Loperamide HCl (Imodium) 2 mg PO ASDIRECTED PRN PRN Reason: Diarrhea Last Admin: 06/28/18 16:55 Dose: 2 mg Megestrol Acetate (Megace 40 Mg/Ml Susp) 400 mg PO DAILY [facility] Last Admin: 06/29/18 08:27 Dose: 400 mg Methylprednisolone Sodium Succinate (Solu-Medrol) 125 mg IVPUSH DAILY [facility] Last Admin: 06/29/18 08:27 Dose: 125 mg Morphine Sulfate (Ms Contin) 15 mg PO Q12HR [facility] Last Admin: 06/29/18 08:21 Dose: 15 mg Multivitamin [Men's Multi-Vitamin] Own Med 1 each PO DAILY [facility] Last Admin: 06/29/18 08:22 Dose: 1 each Oxycodone HCl (Oxycodone) 10 mg PO Q4H PRN PRN Reason: Pain (moderate 4-6) Last Admin: 06/29/18 08:26 Dose: 10 mg Prochlorperazine Maleate (Compazine) 10 mg PO QID PRN PRN Reason: NAUSEA / VOMITING Last Admin: 06/29/18 08:20 Dose: 10 mg Senna/Docusate Sodium (Senna Plus) 2 tab PO BID PRN PRN Reason: Constipation Sodium Chloride (Saline Flush) 10 ml FLUSH ASDIRECTED PRN PRN Reason: Keep Vein Open Last Admin: 06/26/18 08:36 Dose: 10 ml Discontinued Medications Acetaminophen (Tylenol Extra Strength) Confirm Administered Dose 500 mg .ROUTE .STK-MED ONE Stop: 06/28/18 16:53 Last Admin: 06/28/18 17:02 Dose: Not Given Azithromycin (Zithromax) 250 mg PO DAILY [facility] Last Admin: 06/27/18 10:09 Dose: 250 mg Ceftriaxone Sodium 1 gm/ (Sodium Chloride) 50 mls @ 200 mls/hr IV Q24H [facility] Last Admin: 06/25/18 17:57 Dose: 200 mls/hr Isosorbide Mononitrate (Imdur) Confirm Administered Dose 30 mg .ROUTE .STK-MED ONE Stop: 06/26/18 20:47 Last Admin: 06/26/18 22:05 Dose: Not Given Methylprednisolone Sodium Succinate (Solu-Medrol) 125 mg IVPUSH Q12H [facility] Last Admin: 06/28/18 05:00 Dose: 125 mg - Exam Quality Assessment: Supplemental Oxygen General: Alert, Oriented, Cooperative HEENT: Pupils Equal, Pupils Reactive, EOMI Neck: Supple Lungs: Decreased Breath Sounds, Rhonchi Cardiovascular: Regular Rate, Regular Rhythm GI/Abdominal Exam: Soft, Non-Tender, Abnormal Bowel Sounds (decreased Bowel sounds) Back Exam: Normal Inspection Extremities: Normal Inspection Peripheral Pulses: 2+: Dorsalis Pedis (L), Dorsalis Pedis (R) Skin: Warm, Dry, Intact Psy/Mental Status: Alert, Normal Affect, Normal Mood - Problem List & Annotations (1) Shortness of breath SNOMED Code(s): 562767964 Code(s): R06.02 - SHORTNESS OF BREATH Status: Chronic Priority: High Current Visit: Yes (2) Hypoxic episode SNOMED Code(s): 724703554 Code(s): R09.02 - HYPOXEMIA Status: Resolved Priority: High Current Visit: Yes (3) Physical deconditioning SNOMED Code(s): 89211652048566 Code(s): R53.81 - OTHER MALAISE Status: Chronic Priority: High Current Visit: Yes (4) COPD (chronic obstructive pulmonary disease) SNOMED Code(s): 38174140 Code(s): J44.9 - CHRONIC OBSTRUCTIVE PULMONARY DISEASE, UNSPECIFIED Status : Chronic Priority: High Current Visit: Yes Qualifiers: COPD type: unspecified COPD Qualified Code(s): J44.9 - Chronic obstructive pulmonary disease, unspecified (5) Palliative care patient SNOMED Code(s): 487105866 Code(s): Z51.5 - ENCOUNTER FOR PALLIATIVE CARE Status: Chronic Priority: High Current Visit: Yes (6) Pneumonia SNOMED Code(s): 124990426 Code(s): J18.9 - PNEUMONIA, UNSPECIFIED ORGANISM Status: Suspected Priority: High Current Visit: Yes Qualifiers: Pneumonia type: due to unspecified organism Laterality: bilateral Lung location: lower lobe of lung Qualified Code(s): J18.1 - Lobar pneumonia, unspecified organism (7) CHF (congestive heart failure) SNOMED Code(s): 10680095 Code(s): I50.9 - HEART FAILURE, UNSPECIFIED Status: Acute Priority: High Current Visit: Yes Qualifiers: Heart failure type: unspecified Heart failure chronicity: acute on chronic Qualified Code(s): I50.9 - Heart failure, unspecified - Problem List Review Problem List Initiated/Reviewed/Updated: Yes - My Orders Last 24 Hours: My Active Orders 06/28/18 16:45 Loperamide [Imodium] 2 mg PO ASDIRECTED PRN 06/28/18 16:46 Acetaminophen [Tylenol Extra Strength] 500 mg PO Q6H PRN 06/29/18 08:00 methylPREDNISolone Sod Succ [Solu-MEDROL] 125 mg IVPUSH DAILY 06/29/18 15:00 Furosemide [Lasix] 20 mg IVPUSH DAILY 06/30/18 12:00 Acidophilus/Lactobac Spor [Acidolphilus Extra Strength] 1 tab PO DAILY - Plan Plan:: Patient placed in observation for management and monitoring of oxygen saturation and shortness of breath. Patient has improved symptomatically and continues to have chronic shortness of breath despite improved oxygen saturation. Patient stable and has no further concerns at this time. 06/26/18 Discussed with patient and regarding smoking - both have agreed to quit. Patient also states he will quit drinking as well. Discussed shortness of breath and baseline. He does appear to be near or at baseline at this time. He continues to be weak but it is likely a long standing issue and chronic. We will continue current management and consider discharge tomorrow. No changes to medications and will contact [facility] for f/u management of home oxygen concentrator. financial services specialist will follow up at his home tomorrow. 06/27/18 Patient plan was to discharge home today. Patient began feeling weaker, nauseated the past couple days despite improved WBC and labs. Although labs are stable, clinically he has deteriorated. He is a and very stoic and would like to go home but his symptoms of shortness of breath have worsened and the concern is that a possible pneumonia may be worsening. He has congestive heart failure which appears worse with his presentation and possible CHF exacerbation due to his severe worsening of shortness of breath on very minimal exertion. He is unable to do any daily cares from the dyspnea and I fear that any form of exertion may cause excess strain on his health and heart worsening his CHF with concomitant pneumonia. He requires a full admission for a failed outpatient pneumonia treatment and CHF exacerbation at this time. Patient is also a palliative care patient. We will follow labs and clinical picture very closely. 06/28/18 Patient continues to feel weak and fatigued. He has dyspnea with minimal exertion. WBC has elevated and we will continue to monitor and consider change of antibiotics. Chest x-ray shows slight improvement of the consolidation/ pneumonia. There is worsening of vascular congestion and we will start IV lasix and monitor strict in's and out's and daily weights for his worsening CHF. 06/29/18 Patient to continue current antibiotics and monitoring. We will follow up PT/OT assessment and recommendations. Repeat labs in AM and f/u.
[2018-06-29] MEDS: Furosemide 20 MG/2 ML VIAL IVPUSH SCH (16:25)
[2018-06-30] MEDS: MORPHINE 15 MG PO SCH ×2 (07:34→19:36)
[2018-06-30] MEDS: Isosorbide Mononitrate 30 MG Tab.ER PO SCH (07:35)
[2018-06-30] MEDS: PROCHLORPERAZINE 10 MG PO PRN ×2 (07:35→16:44)
[2018-06-30] MEDS: Furosemide 20 MG/2 ML VIAL IVPUSH SCH (07:36)
[2018-06-30] MEDS: methylPREDNISolone Sodium Succinate 125 MG/2 ML SDV IVPUSH SCH (07:36)
[2018-06-30] MEDS: DICYCLOMINE 10 MG PO PRN ×2 (07:36→16:44)
[2018-06-30] MEDS: MEGESTROL 40 MG/ML PO SCH (07:36)
[2018-06-30] MEDS: MULTIVITAMIN PO SCH (07:37)
[2018-06-30] MEDS: OXYCODONE 5 MG PO PRN ×2 (07:43→19:35)
[2018-06-30] MEDS: cefTRIAXone 1 GM in Sodium Chloride 0.9% 50 ML IV SCH (10:19)
[2018-06-30] MEDS: Sodium Chloride 0.9% with KCl 1,000 ML IV SCH ×2 (10:55→21:27)
[2018-06-30] MEDS: Lactobacillus Acidophilus/Lactobacillus Sporogenes (Probiotic) Tab PO SCH (12:00)
--- NOTE | 2018-06-30 12:20 | PCM.PN ---
- General Info Date of Service: 06/30/18 Subjective Update: Pt claims that he has not been short of breath. Has mild cough. Has been feeling tired today. No body aches. No fever or chills. has been tolerating diet. Does use toilet independently. Has been on IV antibiotics. No other complaints. - Review of Systems General: Reports: Weakness, Fatigue. Denies: Fever, Chills HEENT: Denies: Ear Pain, Sinus Congestion, Sore Throat Pulmonary: Reports: Cough. Denies: Shortness of Breath, Sputum, Hemoptysis Cardiovascular: Denies: Chest Pain, Edema, Lightheadedness Gastrointestinal: Denies: Abdominal Pain, Nausea, Vomiting Genitourinary: Denies: Frequency, Urgency Musculoskeletal: Denies: Joint Pain, Joint Swelling Skin: Denies: Bruising, Pruritis, Rash Neurological: Denies: Confusion, Dizziness, Headache, Numbness, Tingling - Patient Data Vitals - Most Recent: Last Vital Signs Temp 98.3 F 06/30/18 08:00 Pulse 60 06/30/18 08:00 Resp 20 06/29/18 19:45 BP 143/75 H 06/30/18 08:00 Pulse Ox 99 06/30/18 08:00 Weight - Most Recent: 52.617 kg I&O - Last 24 Hours: Intake & Output 06/29/18 06/30/18 06/30/18 22:59 06:59 14:59 Intake Total 50 Balance 50 Lab Results Last 24 Hours: Laboratory Results - last 24 hr 06/30/18 06/30/18 Range/Units 09:30 09:30 WBC 6.2 D (4.0-11.0) K/uL RBC 3.61 L (4.50-6.50) M/uL Hgb 12.6 L (13.0-18.0) g/dL Hct 36.9 L (40.0-54.0) % MCV 102 H (76-96) fL MCH 34.9 H (27.0-32.0) pg MCHC 34.1 (31.0-35.0) g/dL RDW 12.9 (11.0-16.0) % Plt Count 237 (150-400) K/uL MPV 9.6 (6.0-10.0) fL Neut % (Auto) 85.2 H (45.0-70.0) % Lymph % (Auto) 7.3 L (20.0-40.0) % [place] % (Auto) 7.3 (3.0-10.0) % Eos % (Auto) 0.2 L (1.0-5.0) % Baso % (Auto) 0.0 (0.0-0.5) % Neut # (Auto) 5.27 (2.00-7.50) K/uL Lymph # (Auto) 0.45 L (1.50-4.00) K/uL [place] # (Auto) 0.45 (0.20-0.80) K/uL Eos # (Auto) 0.01 L (0.04-0.40) K/uL Baso # (Auto) 0.00 L (0.02-0.10) K/uL Sodium 143 (136-145) mmol/L Potassium 2.6 L* D (3.5-5.1) mmol/L Chloride 104 (98-107) mmol/L Carbon Dioxide 32.2 H (21.0-32.0) mmol/L Anion Gap 9.4 (5.0-15.0) mmol/L BUN 11 D (8-26) mg/dL Creatinine 0.67 L (0.70-1.30) mg/dL Est Cr Clr Drug Dosing 73.08 mL/min Estimated GFR (MDRD) > 60 (>60) MLS/MIN BUN/Creatinine Ratio 16.4 (6-25) Glucose 126 H (74-100) mg/dL Calcium 7.7 L (8.5-10.1) mg/dL Total Bilirubin 0.2 (0.0-1.0) mg/dL AST 83 H (15-37) U/L ALT 178 H (12-78) U/L Alkaline Phosphatase 77 (46-116) U/L Total Protein 5.8 L (6.4-8.2) g/dL Albumin 2.4 L (3.4-5.0) g/dL Globulin 3.4 (2.2-4.2) g/dL Albumin/Globulin Ratio 0.7 L (0.8-2.0) [place] Results Last 24 Hours: Microbiology 06/27/18 10:30 Aerobic Blood Culture - Preliminary Blood NO GROWTH AFTER 3 DAYS Anaerobic Blood Culture - Preliminary NO GROWTH AFTER 3 DAYS 06/27/18 10:50 Aerobic Blood Culture - Preliminary Blood NO GROWTH AFTER 3 DAYS Anaerobic Blood Culture - Preliminary NO GROWTH AFTER 3 DAYS 06/27/18 14:30 MRSA Surveillance Culture - Final Nares, Unspecified NO MRSA ISOLATED Med Orders - Current: Current Medications Acetaminophen (Tylenol Extra Strength) 500 mg PO Q6H PRN PRN Reason: Fever Last Admin: 06/28/18 16:55 Dose: 500 mg Dicyclomine HCl (Bentyl) 10 mg PO QID PRN PRN Reason: ABDOMINAL CRAMPING Last Admin: 06/30/18 07:36 Dose: 10 mg Furosemide (Lasix) 20 mg IVPUSH DAILY [facility] Last Admin: 06/30/18 07:36 Dose: 20 mg Ceftriaxone Sodium 1 gm/ (Sodium Chloride) 50 mls @ 200 mls/hr IV Q24H [facility] Stop: 07/03/18 11:00 Last Admin: 06/30/18 10:19 Dose: 200 mls/hr Potassium Chloride/Sodium Chloride (Normal Saline With 40 Meq Kcl) 1,000 mls @ 100 mls/hr IV ASDIRECTED [facility] Last Admin: 06/30/18 10:55 Dose: 100 mls/hr Isosorbide Mononitrate (Imdur) 15 mg PO DAILY [facility] Last Admin: 06/30/18 07:35 Dose: 15 mg Lactobacillus Acidophilus (Acidolphilus Extra Strength) 1 tab PO DAILY@1200 [facility] Last Admin: 06/30/18 12:00 Dose: 1 tab Loperamide HCl (Imodium) 2 mg PO ASDIRECTED PRN PRN Reason: Diarrhea Last Admin: 06/28/18 16:55 Dose: 2 mg Megestrol Acetate (Megace 40 Mg/Ml Susp) 400 mg PO DAILY [facility] Last Admin: 06/30/18 07:36 Dose: 400 mg Methylprednisolone Sodium Succinate (Solu-Medrol) 125 mg IVPUSH DAILY [facility] Last Admin: 06/30/18 07:36 Dose: 125 mg Morphine Sulfate (Ms Contin) 15 mg PO Q12HR [facility] Last Admin: 06/30/18 07:34 Dose: 15 mg Multivitamin [Men's Multi-Vitamin] Own Med 1 each PO DAILY [facility] Last Admin: 06/30/18 07:37 Dose: 1 each Oxycodone HCl (Oxycodone) 10 mg PO Q4H PRN PRN Reason: Pain (moderate 4-6) Last Admin: 06/30/18 07:43 Dose: 10 mg Prochlorperazine Maleate (Compazine) 10 mg PO QID PRN PRN Reason: NAUSEA / VOMITING Last Admin: 06/30/18 07:35 Dose: 10 mg Senna/Docusate Sodium (Senna Plus) 2 tab PO BID PRN PRN Reason: Constipation Sodium Chloride (Saline Flush) 10 ml FLUSH ASDIRECTED PRN PRN Reason: Keep Vein Open Last Admin: 06/26/18 08:36 Dose: 10 ml Discontinued Medications Acetaminophen (Tylenol Extra Strength) Confirm Administered Dose 500 mg .ROUTE .STK-MED ONE Stop: 06/28/18 16:53 Last Admin: 06/28/18 17:02 Dose: Not Given Azithromycin (Zithromax) 250 mg PO DAILY [facility] Last Admin: 06/27/18 10:09 Dose: 250 mg Ceftriaxone Sodium 1 gm/ (Sodium Chloride) 50 mls @ 200 mls/hr IV Q24H [facility] Last Admin: 06/25/18 17:57 Dose: 200 mls/hr Isosorbide Mononitrate (Imdur) Confirm Administered Dose 30 mg .ROUTE .STK-MED ONE Stop: 06/26/18 20:47 Last Admin: 06/26/18 22:05 Dose: Not Given Methylprednisolone Sodium Succinate (Solu-Medrol) 125 mg IVPUSH Q12H [facility] Last Admin: 06/28/18 05:00 Dose: 125 mg - Exam General: Alert, Oriented, Cooperative HEENT: Pupils Equal, Pupils Reactive, EOMI, Mucous Membr. Moist/[place] Neck: Supple Lungs: Clear to Auscultation, Normal Respiratory Effort Cardiovascular: Regular Rate, Regular Rhythm GI/Abdominal Exam: Normal Bowel Sounds, Soft, Non-Tender, No Organomegaly, No Distention, No Abnormal Bruit, No Mass, Pelvis Stable Extremities: Normal Inspection, Normal Range of Motion, Non-Tender, No Pedal Edema, Normal Capillary Refill Skin: Warm, Intact Neurological: No New Focal Deficit Psy/Mental Status: Alert, Normal Affect - Problem List & Annotations (1) Hypokalemia SNOMED Code(s): 70071924 Code(s): E87.6 - HYPOKALEMIA Status: Acute Current Visit: Yes - Problem List Review Problem List Initiated/Reviewed/Updated: Yes - My Orders Last 24 Hours: My Active Orders 06/30/18 10:45 Sodium Chloride 0.9% with KCl [Normal Saline with 40 mEq KCl] 1,000 ml IV ASDIRECTED - Assessment Assessment:: Hypokalemia CHF pneumonia - Plan Plan:: Patient placed in observation for management and monitoring of oxygen saturation and shortness of breath. Patient has improved symptomatically and continues to have chronic shortness of breath despite improved oxygen saturation. Patient stable and has no further concerns at this time. 06/26/18 Discussed with patient and regarding smoking - both have agreed to quit. Patient also states he will quit drinking as well. Discussed shortness of breath and baseline. He does appear to be near or at baseline at this time. He continues to be weak but it is likely a long standing issue and chronic. We will continue current management and consider discharge tomorrow. No changes to medications and will contact [facility] for f/u management of home oxygen concentrator. shared services manager will follow up at his home tomorrow. 06/27/18 Patient plan was to discharge home today. Patient began feeling weaker, nauseated the past couple days despite improved WBC and labs. Although labs are stable, clinically he has deteriorated. He is a and very stoic and would like to go home but his symptoms of shortness of breath have worsened and the concern is that a possible pneumonia may be worsening. He has congestive heart failure which appears worse with his presentation and possible CHF exacerbation due to his severe worsening of shortness of breath on very minimal exertion. He is unable to do any daily cares from the dyspnea and I fear that any form of exertion may cause excess strain on his health and heart worsening his CHF with concomitant pneumonia. He requires a full admission for a failed outpatient pneumonia treatment and CHF exacerbation at this time. Patient is also a palliative care patient. We will follow labs and clinical picture very closely. 06/28/18 Patient continues to feel weak and fatigued. He has dyspnea with minimal exertion. WBC has elevated and we will continue to monitor and consider change of antibiotics. Chest x-ray shows slight improvement of the consolidation/ pneumonia. There is worsening of vascular congestion and we will start IV lasix and monitor strict in's and out's and daily weights for his worsening CHF. 06/29/18 Patient to continue current antibiotics and monitoring. We will follow up PT/OT assessment and recommendations. Repeat labs in AM and f/u. 06/30/18 Pt's vitals are stable. His Clinical exam is normal. His white count is down to 6K today. Will continue IV antibiotics for another 24 hrs and change to oral antibiotics. His BMP today shows potassium of 2.6. His hypokalemia might be the cause of fatigue. I have started him on NS with KCL 40megq at 100cc, considering his CHF. Will repeat labs in Am.
[2018-06-30] MEDS: Loperamide 2 MG Cap PO PRN (20:00)
[2018-07-01] MEDS: OXYCODONE 5 MG PO PRN ×4 (00:22→20:36)
[2018-07-01] MEDS: Loperamide 2 MG Cap PO PRN ×2 (00:23→10:24)
[2018-07-01] MEDS: Sodium Chloride 0.9% with KCl 1,000 ML IV SCH (06:28)
[2018-07-01] MEDS: PROCHLORPERAZINE 10 MG PO PRN ×2 (07:53→16:38)
[2018-07-01] MEDS: DICYCLOMINE 10 MG PO PRN ×2 (07:54→16:38)
[2018-07-01] MEDS: MULTIVITAMIN PO SCH (08:09)
[2018-07-01] MEDS: methylPREDNISolone Sodium Succinate 125 MG/2 ML SDV IVPUSH SCH (08:10)
[2018-07-01] MEDS: Furosemide 20 MG/2 ML VIAL IVPUSH SCH (08:10)
[2018-07-01] MEDS: MORPHINE 15 MG PO SCH ×2 (08:10→20:27)
[2018-07-01] MEDS: Isosorbide Mononitrate 30 MG Tab.ER PO SCH (08:12)
[2018-07-01] MEDS: MEGESTROL 40 MG/ML PO SCH (08:13)
[2018-07-01] MEDS: cefTRIAXone 1 GM in Sodium Chloride 0.9% 50 ML IV SCH (10:22)
--- NOTE | 2018-07-01 11:18 | PCM.PN ---
- General Info Date of Service: 07/01/18 Subjective Update: Pt has been afebrile and has been on day 6 of IV antibiotics. He has had bout 3 loose stools yesterday daytime and 2 last night. Has had 3 small stools today. No blood or mucus.His Stool C-diff is negative. Has been tolerating oral diet well. Still on Iv NS with potassium due to low potassium yesterday. No fever or chills. No shortness of breath, has mild cough. Functional Status: Reports: Pain Controlled, Tolerating Diet, Ambulating, Urinating, Incentive Spirometry - Review of Systems General: Denies: Fever, Weakness HEENT: Denies: Headaches, Sinus Congestion Pulmonary: Reports: Cough. Denies: Shortness of Breath, Sputum, Hemoptysis Cardiovascular: Denies: Chest Pain, Lightheadedness Gastrointestinal: Reports: Diarrhea. Denies: Abdominal Pain, Nausea, Vomiting Genitourinary: Denies: Dysuria, Frequency Musculoskeletal: Denies: Joint Pain, Joint Swelling Skin: Denies: Bruising, Pruritis, Rash - Patient Data Vitals - Most Recent: Last Vital Signs Temp 98.8 F 07/01/18 00:33 Pulse 82 07/01/18 00:33 Resp 20 07/01/18 00:33 BP 163/73 H 07/01/18 08:12 Pulse Ox 98 07/01/18 00:33 Weight - Most Recent: 52.617 kg I&O - Last 24 Hours: Intake & Output 06/30/18 07/01/18 07/01/18 22:59 06:59 14:59 Intake Total 670 700 Output Total 100 Balance 670 600 [place] Results Last 24 Hours: Microbiology 06/27/18 10:50 Aerobic Blood Culture - Preliminary Blood NO GROWTH AFTER 4 DAYS Anaerobic Blood Culture - Preliminary NO GROWTH AFTER 4 DAYS 06/27/18 10:30 Aerobic Blood Culture - Preliminary Blood NO GROWTH AFTER 3 DAYS Anaerobic Blood Culture - Preliminary NO GROWTH AFTER 3 DAYS Med Orders - Current: Current Medications Acetaminophen (Tylenol Extra Strength) 500 mg PO Q6H PRN PRN Reason: Fever Last Admin: 06/28/18 16:55 Dose: 500 mg Dicyclomine HCl (Bentyl) 10 mg PO QID PRN PRN Reason: ABDOMINAL CRAMPING Last Admin: 07/01/18 07:54 Dose: 10 mg Furosemide (Lasix) 20 mg IVPUSH DAILY [facility] Last Admin: 07/01/18 08:10 Dose: 20 mg Ceftriaxone Sodium 1 gm/ (Sodium Chloride) 50 mls @ 200 mls/hr IV Q24H [facility] Stop: 07/03/18 11:00 Last Admin: 07/01/18 10:22 Dose: 200 mls/hr Potassium Chloride/Sodium Chloride (Normal Saline With 40 Meq Kcl) 1,000 mls @ 100 mls/hr IV ASDIRECTED [facility] Last Admin: 07/01/18 06:28 Dose: 100 mls/hr Isosorbide Mononitrate (Imdur) 15 mg PO DAILY [facility] Last Admin: 07/01/18 08:12 Dose: 15 mg Lactobacillus Acidophilus (Acidolphilus Extra Strength) 1 tab PO DAILY@1200 [facility] Last Admin: 06/30/18 12:00 Dose: 1 tab Loperamide HCl (Imodium) 2 mg PO ASDIRECTED PRN PRN Reason: Diarrhea Last Admin: 07/01/18 10:24 Dose: 2 mg Megestrol Acetate (Megace 40 Mg/Ml Susp) 400 mg PO DAILY [facility] Last Admin: 07/01/18 08:13 Dose: 400 mg Methylprednisolone Sodium Succinate (Solu-Medrol) 125 mg IVPUSH DAILY [facility] Last Admin: 07/01/18 08:10 Dose: 125 mg Morphine Sulfate (Ms Contin) 15 mg PO Q12HR [facility] Last Admin: 07/01/18 08:10 Dose: 15 mg Multivitamin [Men's Multi-Vitamin] Own Med 1 each PO DAILY [facility] Last Admin: 07/01/18 08:09 Dose: 1 each Oxycodone HCl (Oxycodone) 10 mg PO Q4H PRN PRN Reason: Pain (moderate 4-6) Last Admin: 07/01/18 08:11 Dose: 10 mg Prochlorperazine Maleate (Compazine) 10 mg PO QID PRN PRN Reason: NAUSEA / VOMITING Last Admin: 07/01/18 07:53 Dose: 10 mg Senna/Docusate Sodium (Senna Plus) 2 tab PO BID PRN PRN Reason: Constipation Sodium Chloride (Saline Flush) 10 ml FLUSH ASDIRECTED PRN PRN Reason: Keep Vein Open Last Admin: 06/26/18 08:36 Dose: 10 ml Discontinued Medications Acetaminophen (Tylenol Extra Strength) Confirm Administered Dose 500 mg .ROUTE .STK-MED ONE Stop: 06/28/18 16:53 Last Admin: 06/28/18 17:02 Dose: Not Given Azithromycin (Zithromax) 250 mg PO DAILY [facility] Last Admin: 06/27/18 10:09 Dose: 250 mg Ceftriaxone Sodium 1 gm/ (Sodium Chloride) 50 mls @ 200 mls/hr IV Q24H [facility] Last Admin: 06/25/18 17:57 Dose: 200 mls/hr Isosorbide Mononitrate (Imdur) Confirm Administered Dose 30 mg .ROUTE .STK-MED ONE Stop: 06/26/18 20:47 Last Admin: 06/26/18 22:05 Dose: Not Given Methylprednisolone Sodium Succinate (Solu-Medrol) 125 mg IVPUSH Q12H [facility] Last Admin: 06/28/18 05:00 Dose: 125 mg - Exam General: Alert, Oriented HEENT: Pupils Equal, Pupils Reactive, EOMI, Mucous Membr. Moist/[place] Neck: Supple Lungs: Clear to Auscultation, Normal Respiratory Effort Cardiovascular: Regular Rate, Regular Rhythm GI/Abdominal Exam: Normal Bowel Sounds, Soft, Non-Tender, No Organomegaly, No Distention, No Abnormal Bruit, No Mass, Pelvis Stable Extremities: Normal Inspection, Normal Range of Motion, Non-Tender, No Pedal Edema, Normal Capillary Refill Skin: Warm, Intact - Problem List & Annotations (1) Hypokalemia SNOMED Code(s): 62816361 Code(s): E87.6 - HYPOKALEMIA Status: Acute Current Visit: Yes - Problem List Review Problem List Initiated/Reviewed/Updated: Yes - My Orders Last 24 Hours: My Active Orders 06/30/18 10:45 Sodium Chloride 0.9% with KCl [Normal Saline with 40 mEq KCl] 1,000 ml IV ASDIRECTED - Assessment Assessment:: Hypokalemia resolved CHF improving pneumonia improving - Plan Plan:: Patient placed in observation for management and monitoring of oxygen saturation and shortness of breath. Patient has improved symptomatically and continues to have chronic shortness of breath despite improved oxygen saturation. Patient stable and has no further concerns at this time. 06/26/18 Discussed with patient and regarding smoking - both have agreed to quit. Patient also states he will quit drinking as well. Discussed shortness of breath and baseline. He does appear to be near or at baseline at this time. He continues to be weak but it is likely a long standing issue and chronic. We will continue current management and consider discharge tomorrow. No changes to medications and will contact [facility] for f/u management of home oxygen concentrator. access services representative will follow up at his home tomorrow. 06/27/18 Patient plan was to discharge home today. Patient began feeling weaker, nauseated the past couple days despite improved WBC and labs. Although labs are stable, clinically he has deteriorated. He is a and very stoic and would like to go home but his symptoms of shortness of breath have worsened and the concern is that a possible pneumonia may be worsening. He has congestive heart failure which appears worse with his presentation and possible CHF exacerbation due to his severe worsening of shortness of breath on very minimal exertion. He is unable to do any daily cares from the dyspnea and I fear that any form of exertion may cause excess strain on his health and heart worsening his CHF with concomitant pneumonia. He requires a full admission for a failed outpatient pneumonia treatment and CHF exacerbation at this time. Patient is also a palliative care patient. We will follow labs and clinical picture very closely. 06/28/18 Patient continues to feel weak and fatigued. He has dyspnea with minimal exertion. WBC has elevated and we will continue to monitor and consider change of antibiotics. Chest x-ray shows slight improvement of the consolidation/ pneumonia. There is worsening of vascular congestion and we will start IV lasix and monitor strict in's and out's and daily weights for his worsening CHF. 06/29/18 Patient to continue current antibiotics and monitoring. We will follow up PT/OT assessment and recommendations. Repeat labs in AM and f/u. 06/30/18 Pt's vitals are stable. His Clinical exam is normal. His white count is down to 6K today. Will continue IV antibiotics for another 24 hrs and change to oral antibiotics. His BMP today shows potassium of 2.6. His hypokalemia might be the cause of fatigue. I have started him on NS with KCL 40megq at 100cc, considering his CHF. Will repeat labs in Am. 07/01/18 Pt is feeling better. Has had loose stools. No blood or mucus , and small volume. This might be antibiotic induced diarrhea. Will stop IV antibiotics as his cough and productive sputum have resolved and his lungs are clear to auscultation. will start ceftin 500mg BID for next 4 days.His white count is elevated at 11.7 , this might be inflammatory reaction to diarrhea. His BMP shows normal electrolyte and his potassium is 4.5 and his creat is o.7. Will D/C IV lasix and IV fluids. Repeat labs in Am.
[2018-07-01] MEDS: Lactobacillus Acidophilus/Lactobacillus Sporogenes (Probiotic) Tab PO SCH (12:01)
[2018-07-01] MEDS: Sodium Chloride 0.9% 10 ML Syringe FLUSH PRN (20:37)
[2018-07-02] MEDS: methylPREDNISolone Sodium Succinate 125 MG/2 ML SDV IVPUSH SCH (07:49)
[2018-07-02] MEDS: Isosorbide Mononitrate 30 MG Tab.ER PO SCH (07:55)
[2018-07-02] MEDS: MORPHINE 15 MG PO SCH (07:56)
[2018-07-02] MEDS: DICYCLOMINE 10 MG PO PRN ×2 (07:58→11:32)
[2018-07-02 07:59] VITALS: BP 146/74
[2018-07-02] MEDS: PROCHLORPERAZINE 10 MG PO PRN ×2 (07:59→11:32)
[2018-07-02] MEDS ORDERED: Multivitamins with Iron/Calcium/Folic Acid/Minerals Tab PO SCH (08:00)
[2018-07-02] MEDS ORDERED: Sodium Chloride 0.9% 10 ML Syringe FLUSH SCH (08:00)
[2018-07-02] MEDS: MEGESTROL 40 MG/ML PO SCH (08:00)
[2018-07-02] MEDS: MULTIVITAMIN PO SCH (08:01)
[2018-07-02] MEDS: Lactobacillus Acidophilus/Lactobacillus Sporogenes (Probiotic) Tab PO SCH (11:31)
[2018-07-02] MEDS: OXYCODONE 5 MG PO PRN (12:29)
--- NOTE | 2018-07-02 13:45 | PCM.DCSUM1 ---
Discharge Summary - Discharge Data Discharge Date: 07/02/18 Discharge Disposition: Home, Self-Care 01 Condition: Good - Discharge Diagnosis/Problem(s) (1) Shortness of breath SNOMED Code(s): 867847879 ICD Code: R06.02 - SHORTNESS OF BREATH Status: Chronic Priority: High Current Visit: Yes (2) Hypoxic episode SNOMED Code(s): 898318327 ICD Code: R09.02 - HYPOXEMIA Status: Resolved Priority: High Current Visit: Yes (3) Physical deconditioning SNOMED Code(s): 11150460718882 ICD Code: R53.81 - OTHER MALAISE Status: Chronic Priority: High Current Visit: Yes (4) COPD (chronic obstructive pulmonary disease) SNOMED Code(s): 60963046 ICD Code: J44.9 - CHRONIC OBSTRUCTIVE PULMONARY DISEASE, UNSPECIFIED Status : Chronic Priority: High Current Visit: Yes Qualifiers: COPD type: unspecified COPD Qualified Code(s): J44.9 - Chronic obstructive pulmonary disease, unspecified (5) Palliative care patient SNOMED Code(s): 384028251 ICD Code: Z51.5 - ENCOUNTER FOR PALLIATIVE CARE Status: Chronic Priority : High Current Visit: Yes (6) Pneumonia SNOMED Code(s): 212726531 ICD Code: J18.9 - PNEUMONIA, UNSPECIFIED ORGANISM Status: Suspected Priority: High Current Visit: Yes Qualifiers: Pneumonia type: due to unspecified organism Laterality: bilateral Lung location: lower lobe of lung Qualified Code(s): J18.1 - Lobar pneumonia, unspecified organism (7) CHF (congestive heart failure) SNOMED Code(s): 82558002 ICD Code: I50.9 - HEART FAILURE, UNSPECIFIED Status: Acute Priority: High Current Visit: Yes Qualifiers: Heart failure type: unspecified Heart failure chronicity: acute on chronic Qualified Code(s): I50.9 - Heart failure, unspecified (8) Hypercapnic respiratory failure, chronic Status: Chronic Priority: High Current Visit: Yes - Patient Summary/Data Consults: Consultations 06/27/18 10:24 OT Evaluation and Treatment [CONS] Routine Please Evaluate and Treat. OT Reason for Consult: ADL's This query below is only for informational purposes and is not editable. Admission Diagnosis/Problem: Shortness of breath PT Evaluation and Treatment [CONS] Routine Please Evaluate and Treat. PT Reason for Consult: Strengthening This query below is only for informational purposes and is not editable. Admission Diagnosis/Problem: Shortness of breath - Patient Instructions Diet: Usual Diet as Tolerated Activity: As Tolerated - Discharge Plan Home Medications: Home Meds Multivitamin [Men's Multi-Vitamin] 1 each PO DAILY 05/17/17 [History] Sennosides/Docusate Sodium [Sennosides-Docusate Sodium] 2 each PO BID PRN [History] oxyCODONE 10 mg PO Q4H PRN 11/18/17 [History] Dicyclomine HCl [Bentyl] 10 mg PO ASDIRECTED 06/25/18 [History] Megestrol Acetate 10 ml PO DAILY 06/25/18 [History] Morphine [MS Contin] 15 mg PO Q12HR 06/25/18 [History] Prochlorperazine Maleate [Compazine] 10 mg PO QID PRN 06/25/18 [History] Isosorbide Mononitrate [Imdur] 15 mg PO DAILY tab.er 06/26/18 [Rx] Acetaminophen [Tylenol Extra Strength] 500 mg PO Q6H PRN tablet 07/02/18 [Rx] Acidophilus/Lactobac Spor [Acidolphilus X-Strength] 1 tab PO DAILY@1200 tablet 07/02/18 [Rx] Oxygen Therapy Mode: Nasal Cannula Patient Handouts: Ceftriaxone injection, Community-Acquired Pneumonia, Adult Forms: ED Department Discharge Referrals: PCP,None [Primary Care Provider] - - Discharge Summary/Plan Comment DC Time >30 min.: Yes Discharge Summary/Plan Comment: Patient to be discharged with f/u in 1 week. Discussed chronic hypercapnic respiratory failure with end stage COPD. Patient has limited reserve and is frequently admitted for decompensation and COPD exacerbation. The Non-invasive home ventilator is needed due to the patient's chronic respiratory failure due to COPD and limited reserve. The treatment should decrease his work in breathing , improve his pulmonary status and prevent exacerbations and hospitalizations that could result in serious harm to him. The use of NHV therapy has been discussed with the patient and he is in full agreement with this plan of care. Patient has severe COPD and he requires continuous oxygen. Patient would benefit from a portable oxygen concentrator to allow greater mobility and functioning. Patient Oxygen at rest room air is 92%. Patient Oxygen saturation with exercise at 45 seconds of walking is 83%. Patient on oxygen 2.5LPM for recovery took 50 seconds to recover to 95%. Referred to [facility] for further management of oxygen supplies and care. Follow up in 1 week and as needed in ER or clinic. - Patient Data Vitals - Most Recent: Last Vital Signs Temp 37.1 C 07/02/18 08:00 Pulse 63 07/02/18 08:00 Resp 18 07/02/18 08:00 BP 146/74 H 07/02/18 08:00 Pulse Ox 100 07/02/18 08:00 Weight - Most Recent: 53.127 kg I&O - Last 24 hours: Intake & Output 07/01/18 07/02/18 07/02/18 22:59 06:59 14:59 Intake Total 680 640 Output Total 1100 Balance 680 -460 Lab Results - Last 24 hrs: Laboratory Results - last 24 hr 07/02/18 07/02/18 Range/Units 07:20 07:20 WBC 6.6 D (4.0-11.0) K/uL RBC 3.43 L (4.50-6.50) M/uL Hgb 12.0 L (13.0-18.0) g/dL Hct 34.9 L (40.0-54.0) % MCV 102 H (76-96) fL MCH 35.0 H (27.0-32.0) pg MCHC 34.4 (31.0-35.0) g/dL RDW 13.0 (11.0-16.0) % Plt Count 216 D (150-400) K/uL MPV 8.9 (6.0-10.0) fL Neut % (Auto) 76.5 H (45.0-70.0) % Lymph % (Auto) 14.8 L (20.0-40.0) % [place] % (Auto) 8.0 (3.0-10.0) % Eos % (Auto) 0.5 L (1.0-5.0) % Baso % (Auto) 0.2 (0.0-0.5) % Neut # (Auto) 5.07 (2.00-7.50) K/uL Lymph # (Auto) 0.98 L (1.50-4.00) K/uL [place] # (Auto) 0.53 (0.20-0.80) K/uL Eos # (Auto) 0.03 L (0.04-0.40) K/uL Baso # (Auto) 0.01 L (0.02-0.10) K/uL Sodium 142 (136-145) mmol/L Potassium 4.1 (3.5-5.1) mmol/L Chloride 104 (98-107) mmol/L Carbon Dioxide 33.6 H (21.0-32.0) mmol/L Anion Gap 8.5 (5.0-15.0) mmol/L BUN 9 (8-26) mg/dL Creatinine 0.62 L (0.70-1.30) mg/dL Est Cr Clr Drug Dosing 78.97 mL/min Estimated GFR (MDRD) > 60 (>60) MLS/MIN BUN/Creatinine Ratio 14.5 (6-25) Glucose 118 H (74-100) mg/dL Calcium 7.7 L (8.5-10.1) mg/dL Total Bilirubin 0.2 D (0.0-1.0) mg/dL AST 34 (15-37) U/L ALT 100 H (12-78) U/L Alkaline Phosphatase 72 (46-116) U/L Total Protein 5.5 L (6.4-8.2) g/dL Albumin 2.4 L (3.4-5.0) g/dL Globulin 3.1 (2.2-4.2) g/dL Albumin/Globulin Ratio 0.8 (0.8-2.0) JET Results - Last 24 hrs: Microbiology 06/27/18 10:30 Aerobic Blood Culture - Final Blood NO GROWTH AFTER 5 DAYS Anaerobic Blood Culture - Final NO GROWTH AFTER 5 DAYS 06/27/18 10:50 Aerobic Blood Culture - Final Blood NO GROWTH AFTER 5 DAYS Anaerobic Blood Culture - Final NO GROWTH AFTER 5 DAYS Med Orders - Current: Current Medications Acetaminophen (Tylenol Extra Strength) 500 mg PO Q6H PRN PRN Reason: Fever Last Admin: 06/28/18 16:55 Dose: 500 mg Cefuroxime Axetil (Ceftin) 500 mg PO BID AMY Stop: 07/05/18 21:00 Last Admin: 07/02/18 07:55 Dose: 500 mg Dicyclomine HCl (Bentyl) 10 mg PO QID PRN PRN Reason: ABDOMINAL CRAMPING Last Admin: 07/02/18 11:32 Dose: 10 mg Isosorbide Mononitrate (Imdur) 15 mg PO DAILY [facility] Last Admin: 07/02/18 07:55 Dose: 15 mg Lactobacillus Acidophilus (Acidolphilus Extra Strength) 1 tab PO DAILY@1200 [facility] Last Admin: 07/02/18 11:31 Dose: 1 tab Loperamide HCl (Imodium) 2 mg PO ASDIRECTED PRN PRN Reason: Diarrhea Last Admin: 07/01/18 10:24 Dose: 2 mg Megestrol Acetate (Megace 40 Mg/Ml Susp) 400 mg PO DAILY [facility] Last Admin: 07/02/18 08:00 Dose: 400 mg Methylprednisolone Sodium Succinate (Solu-Medrol) 125 mg IVPUSH DAILY [facility] Last Admin: 07/02/18 07:49 Dose: 125 mg Morphine Sulfate (Ms Contin) 15 mg PO Q12HR [facility] Last Admin: 07/02/18 07:56 Dose: 15 mg Multivitamins/Minerals (Thera M Plus) 1 tab PO DAILY [facility] Last Admin: 07/02/18 08:34 Dose: 1 tab Oxycodone HCl (Oxycodone) 10 mg PO Q4H PRN PRN Reason: Pain (moderate 4-6) Last Admin: 07/02/18 12:29 Dose: 10 mg Prochlorperazine Maleate (Compazine) 10 mg PO QID PRN PRN Reason: NAUSEA / VOMITING Last Admin: 07/02/18 11:32 Dose: 10 mg Senna/Docusate Sodium (Senna Plus) 2 tab PO BID PRN PRN Reason: Constipation Sodium Chloride (Saline Flush) 10 ml FLUSH BID [facility] Last Admin: 07/02/18 07:48 Dose: 10 ml Discontinued Medications Acetaminophen (Tylenol Extra Strength) Confirm Administered Dose 500 mg .ROUTE .STK-MED ONE Stop: 06/28/18 16:53 Last Admin: 06/28/18 17:02 Dose: Not Given Azithromycin (Zithromax) 250 mg PO DAILY [facility] Last Admin: 06/27/18 10:09 Dose: 250 mg Furosemide (Lasix) 20 mg IVPUSH DAILY [facility] Last Admin: 07/01/18 08:10 Dose: 20 mg Ceftriaxone Sodium 1 gm/ (Sodium Chloride) 50 mls @ 200 mls/hr IV Q24H [facility] Last Admin: 06/25/18 17:57 Dose: 200 mls/hr Ceftriaxone Sodium 1 gm/ (Sodium Chloride) 50 mls @ 200 mls/hr IV Q24H [facility] Stop: 07/03/18 11:00 Last Admin: 07/01/18 10:22 Dose: 200 mls/hr Potassium Chloride/Sodium Chloride (Normal Saline With 40 Meq Kcl) 1,000 mls @ 100 mls/hr IV ASDIRECTED [facility] Last Admin: 07/01/18 06:28 Dose: 100 mls/hr Isosorbide Mononitrate (Imdur) Confirm Administered Dose 30 mg .ROUTE .STK-MED ONE Stop: 06/26/18 20:47 Last Admin: 06/26/18 22:05 Dose: Not Given Methylprednisolone Sodium Succinate (Solu-Medrol) 125 mg IVPUSH Q12H [facility] Last Admin: 06/28/18 05:00 Dose: 125 mg Multivitamin [Men's Multi-Vitamin] Own Med 1 each PO DAILY [facility] Last Admin: 07/02/18 08:01 Dose: 1 each Sodium Chloride (Saline Flush) 10 ml FLUSH ASDIRECTED PRN PRN Reason: Keep Vein Open Last Admin: 07/01/18 20:37 Dose: 10 ml
== END 2018-07-02 14:50 | disposition home or self-care (01) | DRG 194 ==
LOC: LB.ED 11:38 → UNDOADMOB 14:00 → LB.MS 14:00 → OBSVTOIN 06-27 10:24
PROVIDERS: ADMIT Family Medicine; ATTEND Family Medicine
DX: R06.02 Shortness of breath (principal); R53.1 Weakness; J18.1 Lobar pneumonia, unspecified organism; I13.0 Hypertensive heart and chronic kidney disease with heart failure and stage 1 through stage 4 chronic kidney disease, or unspecified chronic kidney disease; J96.12 Chronic respiratory failure with hypercapnia; J44.0 Chronic obstructive pulmonary disease with (acute) lower respiratory infection; D68.9 Coagulation defect, unspecified; Z51.5 Encounter for palliative care; Z66 Do not resuscitate; I50.9 Heart failure, unspecified; N18.9 Chronic kidney disease, unspecified; J44.9 Chronic obstructive pulmonary disease, unspecified; F17.210 Nicotine dependence, cigarettes, uncomplicated; E87.6 Hypokalemia; F10.10 Alcohol abuse, uncomplicated; R09.02 Hypoxemia; R53.81 Other malaise; Z99.81 Dependence on supplemental oxygen; M19.90 Unspecified osteoarthritis, unspecified site; M54.9 Dorsalgia, unspecified; G89.29 Other chronic pain; Z87.01 Personal history of pneumonia (recurrent); Z85.46 Personal history of malignant neoplasm of prostate; Z85.01 Personal history of malignant neoplasm of esophagus; Z90.79 Acquired absence of other genital organ(s); Z90.49 Acquired absence of other specified parts of digestive tract; I25.2 Old myocardial infarction; H54.7 Unspecified visual loss; Z95.1 Presence of aortocoronary bypass graft; Z95.5 Presence of coronary angioplasty implant and graft; Z91.041 Radiographic dye allergy status; Z88.8 Allergy status to other drugs, medicaments and biological substances; R33.9 Retention of urine, unspecified; R32 Unspecified urinary incontinence; Z86.59 Personal history of other mental and behavioral disorders
CPT/HCPCS: 36415; 36600; 71045; 80048; 80053; 81001; 82803; 83605; 83880; 84443; 84484; 85025; 85610; 87040; 87493; 93005; 97110-GO; 97110-GP; 97161-GP; 97165-GO; 97530-GP; 97535-GO; A0425; A0429; A9270-GY; J0696; J1940; J2930; J3480; J7050; Q0164

== ENCOUNTER 2018-09-29 16:19 | Emergency (ER) | payer OTHER, MEDICARE ==
--- NOTE | 2018-09-29 17:20 | EDM.PDOC ---
ED HPI GENERAL MEDICAL PROBLEM - General Time Seen by Provider: 09/29/18 17:00 Source of Information: Reports: Patient History Limitations: Reports: No Limitations - History of Present Illness INITIAL COMMENTS - FREE TEXT/NARRATIVE: According to patient he has been feeling weak for the past 1 wk , but today he claims he has been feeling nausea all day, no vomiting. No fever or chills. No chest pain or shortness of breath. Minimal chronic cough unchanged. He does have chronic diarrhea, which is under control. He feels cold and weak all the time. He does have lung cancer is done with his chemotherapy presently. Pt still smokes. Onset Date: 09/17/18 Duration: Week(s): Improves with: Reports: None Worsens with: Reports: None Associated Symptoms: Reports: Weakness. Denies: Confusion, Chest Pain, Cough, Diaphoresis, Fever/Chills, Headaches, Nausea/Vomiting, Rash, Seizure, Shortness of Breath, Syncope Middle Abdomen Pain Score (Numeric/FACES): 3 - Related Data Allergies Allergy/AdvReac Type Severity Reaction Status Date / Time ANDRES Inhibitors Allergy Unknown Swollen Verified 02/03/18 03:38 Tongue CONTRAST DYE Allergy Swollen Uncoded 02/03/18 03:38 Tongue Home Meds: Home Meds Multivitamin [Men's Multi-Vitamin] 1 each PO DAILY 05/17/17 [History] Sennosides/Docusate Sodium [Sennosides-Docusate Sodium] 2 each PO BID PRN [History] oxyCODONE 10 mg PO Q4H PRN 11/18/17 [History] Dicyclomine HCl [Bentyl] 10 mg PO ASDIRECTED 06/25/18 [History] Megestrol Acetate 10 ml PO DAILY 06/25/18 [History] Morphine [MS Contin] 15 mg PO Q12HR 06/25/18 [History] Prochlorperazine Maleate [Compazine] 10 mg PO QID PRN 06/25/18 [History] Isosorbide Mononitrate [Imdur] 15 mg PO DAILY tab.er 06/26/18 [Rx] Acetaminophen [Tylenol Extra Strength] 500 mg PO Q6H PRN tablet 07/02/18 [Rx] Acidophilus/Lactobac Spor [Acidolphilus X-Strength] 1 tab PO DAILY@1200 tablet 07/02/18 [Rx] Past Medical History HEENT History: Reports: Impaired Vision, Other (See Below) Other HEENT History: esophagous removed d/t CA, some hearing issues (tinnitus) Cardiovascular History: Reports: Bypass, Heart Murmur, Hypertension, MA, SOB on Exertion, Stents Respiratory History: Reports: COPD, Pneumonia, Recurrent, Pneumothorax Gastrointestinal History: Reports: Chronic Diarrhea, Colon Polyp, Hemorrhoids, Other (See Below) Other Gastrointestinal History: possible hernia in abdomen Genitourinary History: Reports: Chronic Renal Insuffiency, Prostate Disorder, Retention, Urinary, Urinary Incontinence, Other (See Below) Other Genitourinary History: prostate removed d/t CA Musculoskeletal History: Reports: Back Pain, Chronic, Osteoarthritis Psychiatric History: Reports: Anxiety, Depression, Mood Swings, PTSD Other Psychiatric History: ETOH abuse Hematologic History: Reports: Bleeding Disorder, Other (See Below) Other Hematologic History: clotting disorder " I clot quick" Oncologic (Cancer) History: Reports: Esophageal, Prostate, Other (See Below) Other Oncologic History: "some colon polyps were cancerous type I think" Dermatologic History: Reports: Eczema, Other (See Below) Other Dermatologic History: shingles - Infectious Disease History Infectious Disease History: Reports: Other (See Below) Other Infectious Disease History: ' i don t know, i think I have had it all" - Past Surgical History Cardiovascular Surgical History: Reports: Coronary Artery Bypass, Coronary Artery Stent Respiratory Surgical History: Reports: Other (See Below) Other Respiratory Surgeries/Procedures: chest tubes currently in place on R. chest tubes removed and healed on left GI Surgical History: Reports: Other (See Below) Other GI Surgeries/Procedures: stomnach attached top of esophagus with esophageal removal Male Surgical History: Reports: Prostatectomy Musculoskeletal Surgical History: Reports: Arthroscopic Procedure, Other (See Below) Other Musculoskeletal Surgeries/Procedures:: rotator cuff sx arthroscopy previous to sx Social & Family History - Family History Family Medical History: Noncontributory - Caffeine Use Caffeine Use: Reports: Coffee, Soda ED ROS GENERAL - Review of Systems Review Of Systems: See Below Constitutional: Reports: Weakness. Denies: Fever, Chills, Malaise, Decreased Appetite HEENT: Denies: Rhinitis, Throat Pain, Throat Swelling Respiratory: Reports: Shortness of Breath (chronic), Cough (chronic). Denies: Pleuritic Chest Pain, Sputum Cardiovascular: Denies: Chest Pain, Lightheadedness GI/Abdominal: Reports: Diarrhea (chronic), Nausea. Denies: Abdominal Pain, Constipation, Vomiting Musculoskeletal: Denies: Joint Pain, Joint Swelling ED EXAM, GENERAL - Physical Exam Exam: See Below Exam Limited By: No Limitations General Appearance: Alert, WD/WN, No Apparent Distress Eye Exam: Bilateral Eye: EOMI, PERRL Ears: Normal External Exam, Normal Canal, Hearing Grossly Normal, Normal TMs Ear Exam: Bilateral Ear: Auricle Normal, Canal Normal, TM normal Nose: Normal Inspection, Normal Mucosa, No Blood Throat/Mouth: Normal Inspection, Normal Lips, Normal Teeth, Normal Gums, Normal Oropharynx, Normal Voice, No Airway Compromise Head: Atraumatic, Normocephalic Neck: Normal Inspection, Supple, Non-Tender, Full Range of Motion Respiratory/Chest: No Respiratory Distress, Lungs Clear, No Accessory Muscle Use , Chest Non-Tender, Decreased Breath Sounds (decreased all over.) GI/Abdominal: Normal Bowel Sounds, Soft, No Organomegaly, No Distention, No Abnormal Bruit, No Mass, Tender (Mild tenderness in the epigastric region) Extremities: Normal Inspection, Normal Range of Motion, Non-Tender, Normal Capillary Refill, No Pedal Edema Neurological: Alert, Oriented, CN II-XII Intact, Normal Cognition, Normal Gait, Normal Reflexes, No Motor/Sensory Deficits Course - Vital Signs Text/Narrative:: Pt has very nonspecific complaint of weakness of nausea. He does have good strength 5/5 in all extremities. HE can stand but cannot walk or move much before his legs get weak. He has not had fall attack. His white count is 5.8 and hemoglobin was 13.5 gm. His magnesium is slightly low at 1.3. His CMP is stable. On further qustioning patient claims he ahs been having heart burn and water blush sensation all the time and he has his head end of the bed elevated, but he does not take any thing for his reflux. He does have epigastric tenderness. It does appear like GERD. Some of his weakness might be related to his lung cancer , and some paraneoplastic syndrome asso with it. His vitals and his SPO2 are very stable.His SPO2 is around 100% on 2 litre. He does walk and move without discomfort, but weak. this has been going on for sometime now. This might be chronic fatigue from his general health. Still smokes 1/2 PPD. Pt reassured that he does not have any infection, anemia, or electrolyte imbalance. Pt and spouse reassured, he is given script for omeprazole 40mg daily . Last Recorded V/S: Last Vital Signs Temp 97.7 F 09/29/18 17:18 Pulse 80 09/29/18 17:18 Resp 18 09/29/18 17:18 BP 167/93 H 09/29/18 17:18 Pulse Ox 100 09/29/18 17:18 - Orders/Labs/Meds Orders: Active Orders 24 hr Category Date Time Status COMPREHENSIVE METABOLIC PN,CMP [CHEM] Stat Lab 09/29/18 17:12 Received Labs: Laboratory Tests 09/29/18 09/29/18 Range/Units 17:12 17:12 WBC 5.8 (4.0-11.0) K/uL RBC 4.24 L (4.50-6.50) M/uL Hgb 13.5 (13.0-18.0) g/dL Hct 40.6 (40.0-54.0) % MCV 96 (76-96) fL MCH 31.8 (27.0-32.0) pg MCHC 33.3 (31.0-35.0) g/dL RDW 14.6 (11.0-16.0) % Plt Count 227 (150-400) K/uL MPV 9.4 (6.0-10.0) fL Neut % (Auto) 76.5 H (45.0-70.0) % Lymph % (Auto) 11.8 L (20.0-40.0) % [place] % (Auto) 10.6 H (3.0-10.0) % Eos % (Auto) 0.9 L (1.0-5.0) % Baso % (Auto) 0.2 (0.0-0.5) % Neut # (Auto) 4.40 (2.00-7.50) K/uL Lymph # (Auto) 0.68 L (1.50-4.00) K/uL [place] # (Auto) 0.61 (0.20-0.80) K/uL Eos # (Auto) 0.05 (0.04-0.40) K/uL Baso # (Auto) 0.01 L (0.02-0.10) K/uL Magnesium 1.3 L (1.8-2.4) mg/dL Departure - Departure Time of Disposition: 18:00 Disposition: Home, Self-Care 01 Condition: Fair Clinical Impression: GERD (gastroesophageal reflux disease), Nausea - Discharge Information *PRESCRIPTION DRUG MONITORING PROGRAM REVIEWED*: Not Applicable *COPY OF PRESCRIPTION DRUG MONITORING REPORT IN PATIENT TAYLOR: Not Applicable Referrals: PCP,None [Primary Care Provider] - Additional Instructions: Pt has very nonspecific complaint of weakness of nausea. He does have good strength 5/5 in all extremities. He can stand but cannot walk or move much before his legs get weak. He has not had fall attack. His white count is 5.8 and hemoglobin was 13.5 gm. His magnesium is slightly low at 1.3. His CMP is stable. His albumin is slightly low at 3.2. Advised 2 eggs daily.On further questioning patient claims he ahs been having heart burn and water blush sensation all the time and he has his head end of the bed elevated, but he does not take any thing for his reflux. He does have epigastric tenderness. It does appear like GERD. Some of his weakness might be related to his lung cancer , and some paraneoplastic syndrome asso with it. His vitals and his SPO2 are very stable.His SPO2 is around 100% on 2 litre. He does walk and move without discomfort, but weak. this has been going on for sometime now. This might be chronic fatigue from his general health. Still smokes 1/2 PPD. Pt reassured that he does not have any infection, anemia, or electrolyte imbalance. Pt and spouse reassured, he is given script for omeprazole 40mg daily . - Problem List & Annotations (1) GERD (gastroesophageal reflux disease) SNOMED Code(s): 442167318 Code(s): K21.9 - GASTRO-ESOPHAGEAL REFLUX DISEASE WITHOUT ESOPHAGITIS Status: Acute Current Visit: Yes (2) Nausea SNOMED Code(s): 891451474 Code(s): R11.0 - NAUSEA Status: Acute Current Visit: Yes - Problem List Review Problem List Initiated/Reviewed/Updated: Yes - My Orders Last 24 Hours: My Active Orders 09/29/18 17:12 COMPREHENSIVE METABOLIC PN,CMP [CHEM] Stat - Assessment/Plan Last 24 Hours: My Active Orders 09/29/18 17:12 COMPREHENSIVE METABOLIC PN,CMP [CHEM] Stat Assessment:: GERD Nausea Plan: Pt has very nonspecific complaint of weakness of nausea. He does have good strength 5/5 in all extremities. HE can stand but cannot walk or move much before his legs get weak. He has not had fall attack. His white count is 5.8 and hemoglobin was 13.5 gm. His magnesium is slightly low at 1.3. His CMP is stable. On further qustioning patient claims he ahs been having heart burn and water blush sensation all the time and he has his head end of the bed elevated, but he does not take any thing for his reflux. He does have epigastric tenderness. It does appear like GERD. Some of his weakness might be related to his lung cancer , and some paraneoplastic syndrome asso with it. His vitals and his SPO2 are very stable.His SPO2 is around 100% on 2 litre. He does walk and move without discomfort, but weak. this has been going on for sometime now. This might be chronic fatigue from his general health. Still smokes 1/2 PPD. Pt reassured that he does not have any infection, anemia, or electrolyte imbalance. Pt and spouse reassured, he is given script for omeprazole 40mg daily .
[2018-09-29] MEDS ORDERED: Omeprazole 20 MG Cap.CR PO ONE (17:43)
[2018-09-29] MEDS ORDERED: Omeprazole 20 MG Cap.CR ONE (17:55)
[2018-09-29 18:42] VITALS: BP 113/74
== END 2018-09-29 18:27 | disposition home or self-care (01) ==
LOC: LB.ED 16:19
DX: K21.9 Gastro-esophageal reflux disease without esophagitis (principal); I12.9 Hypertensive chronic kidney disease with stage 1 through stage 4 chronic kidney disease, or unspecified chronic kidney disease; N18.9 Chronic kidney disease, unspecified; C34.90 Malignant neoplasm of unspecified part of unspecified bronchus or lung; M19.90 Unspecified osteoarthritis, unspecified site; Z95.1 Presence of aortocoronary bypass graft; Z95.5 Presence of coronary angioplasty implant and graft; Z79.899 Other long term (current) drug therapy; Z91.041 Radiographic dye allergy status; Z88.8 Allergy status to other drugs, medicaments and biological substances
CPT/HCPCS: 36415; 80053; 83735; 85025; 99285; A0425; A0429; A9270; 99283

== ENCOUNTER 2019-02-01 13:57 | Emergency (ER) | payer MEDICARE, OTHER ==
[2019-02-01] MEDS ORDERED: Sodium Chloride 0.9% 10 ML Syringe FLUSH PRN (14:04)
[2019-02-01] MEDS ORDERED: Albuterol/Ipratropium 3.0-0.5 MG/3 ML Neb Soln NEB PRN (14:04)
[2019-02-01] MEDS ORDERED: methylPREDNISolone Sodium Succinate 125 MG/2 ML SDV IVPUSH ONE (14:05)
[2019-02-01] MEDS ORDERED: Albuterol 0.083% 2.5 MG/3 ML Neb Soln ONE (15:00)
[2019-02-01] MEDS ORDERED: methylPREDNISolone Sodium Succinate 125 MG/2 ML SDV ONE (15:05)
[2019-02-01] MEDS ORDERED: Albuterol/Ipratropium 3.0-0.5 MG/3 ML Neb Soln ONE (15:13)
[2019-02-01] MEDS ORDERED: Sodium Chloride 0.9% 500 ML IV ONE (16:05)
[2019-02-01] MEDS ORDERED: Diltiazem 50 MG/10 ML SDV IVPUSH ONE ×2 (16:06→17:26)
[2019-02-01] MEDS ORDERED: Metoprolol Tartrate 5 MG in Sodium Chloride 0.9% 50 ML IV ONE (16:13)
[2019-02-01] MEDS ORDERED: Apixaban 2.5 MG Tab ONE (17:30)
--- NOTE | 2019-02-01 17:57 | EDM.PDOC ---
ED HPI GENERAL MEDICAL PROBLEM - General Chief Complaint: Cardiovascular Problem Stated Complaint: LUNG CANCER PROBLEMS Time Seen by Provider: 02/01/19 14:40 Source of Information: Reports: Patient, Family History Limitations: Reports: No Limitations - History of Present Illness INITIAL COMMENTS - FREE TEXT/NARRATIVE: This is a 73yo M here for shortness of breath and feeling weak. He denies any other issues at this time. Onset: Gradual Duration: Day(s):, Getting Worse Location: Reports: Generalized Severity: Moderate Improves with: Reports: None Worsens with: Reports: Movement Treatments DATABASE PROGRAMMER: Reports: Oxygen Other Treatments DATABASE PROGRAMMER: Pt had increased the oxygen to 4+L/min, little results prior to arrival Anterior Chest Pain Score (Numeric/FACES): 7 - Related Data Allergies Allergy/AdvReac Type Severity Reaction Status Date / Time ANDRES Inhibitors Allergy Unknown Swollen Verified 02/03/18 03:38 Tongue CONTRAST DYE Allergy Swollen Uncoded 02/03/18 03:38 Tongue Home Meds: Home Meds Multivitamin [Men's Multi-Vitamin] 1 each PO DAILY 05/17/17 [History] Sennosides/Docusate Sodium [Sennosides-Docusate Sodium] 2 each PO BID PRN [History] oxyCODONE 10 mg PO Q4H PRN 11/18/17 [History] Dicyclomine HCl [Bentyl] 10 mg PO ASDIRECTED 06/25/18 [History] Megestrol Acetate 10 ml PO DAILY 06/25/18 [History] Morphine [MS Contin] 15 mg PO Q12HR 06/25/18 [History] Prochlorperazine Maleate [Compazine] 10 mg PO QID PRN 06/25/18 [History] Isosorbide Mononitrate [Imdur] 15 mg PO DAILY tab.er 06/26/18 [Rx] Acetaminophen [Tylenol Extra Strength] 500 mg PO Q6H PRN tablet 07/02/18 [Rx] Acidophilus/Lactobac Spor [Acidolphilus X-Strength] 1 tab PO DAILY@1200 tablet 07/02/18 [Rx] Past Medical History HEENT History: Reports: Impaired Vision, Other (See Below) Other HEENT History: esophagous removed d/t CA, some hearing issues (tinnitus) Cardiovascular History: Reports: Bypass, Heart Murmur, Hypertension, MT, SOB on Exertion, Stents Respiratory History: Reports: COPD, Pneumonia, Recurrent, Pneumothorax Gastrointestinal History: Reports: Chronic Diarrhea, Colon Polyp, Hemorrhoids, Other (See Below) Other Gastrointestinal History: possible hernia in abdomen Genitourinary History: Reports: Chronic Renal Insuffiency, Prostate Disorder, Retention, Urinary, Urinary Incontinence, Other (See Below) Other Genitourinary History: prostate removed d/t CA Musculoskeletal History: Reports: Back Pain, Chronic, Osteoarthritis Psychiatric History: Reports: Anxiety, Depression, Mood Swings, PTSD Other Psychiatric History: ETOH abuse Hematologic History: Reports: Bleeding Disorder, Other (See Below) Other Hematologic History: clotting disorder " I clot quick" Oncologic (Cancer) History: Reports: Esophageal, Prostate, Other (See Below) Other Oncologic History: "some colon polyps were cancerous type I think" Dermatologic History: Reports: Eczema, Other (See Below) Other Dermatologic History: shingles - Infectious Disease History Infectious Disease History: Reports: Other (See Below) Other Infectious Disease History: ' i don t know, i think I have had it all" - Past Surgical History Cardiovascular Surgical History: Reports: Coronary Artery Bypass, Coronary Artery Stent Respiratory Surgical History: Reports: Other (See Below) Other Respiratory Surgeries/Procedures: chest tubes currently in place on R. chest tubes removed and healed on left GI Surgical History: Reports: Other (See Below) Other GI Surgeries/Procedures: stomnach attached top of esophagus with esophageal removal Male Surgical History: Reports: Prostatectomy Musculoskeletal Surgical History: Reports: Arthroscopic Procedure, Other (See Below) Other Musculoskeletal Surgeries/Procedures:: rotator cuff sx arthroscopy previous to sx Social & Family History - Family History Family Medical History: Noncontributory - Caffeine Use Caffeine Use: Reports: Coffee, Soda ED ROS GENERAL - Review of Systems Review Of Systems: ROS reveals no pertinent complaints other than HPI. ED EXAM, GENERAL - Physical Exam Exam: See Below Exam Limited By: No Limitations General Appearance: Alert, No Apparent Distress, Thin Eye Exam: Bilateral Eye: EOMI, PERRL Ears: Normal External Exam Nose: Normal Inspection Throat/Mouth: Normal Inspection Head: Atraumatic, Normocephalic Neck: Normal Inspection Respiratory/Chest: No Respiratory Distress, Lungs Clear Cardiovascular: Tachycardia, Irregularly Irregular Peripheral Pulses: 2+: Dorsalis Pedis (L), Dorsalis Pedis (R) GI/Abdominal: Normal Bowel Sounds, Soft, Non-Tender Course - Vital Signs Last Recorded V/S: Last Vital Signs Temp 36.3 C 02/01/19 14:32 Pulse 124 H 02/01/19 15:36 Resp 20 02/01/19 15:36 BP 100/69 02/01/19 15:36 Pulse Ox 97 02/01/19 15:36 - Orders/Labs/Meds Orders: Active Orders 24 hr Category Date Time Status EKG Documentation Completion [RC] ASDIRECTED Care 02/01/19 14:59 Active RT Aerosol Therapy [RC] ASDIRECTED Care 02/01/19 14:04 Active Chest 1V Frontal [CR] Stat Exams 02/01/19 14:03 Taken Albuterol/Ipratropium [DuoNeb 3.0-0.5 MG/3 ML] Med 02/01/19 14:04 Active 3 ml NEB Q2H PRN Sodium Chloride 0.9% [Saline Flush] Med 02/01/19 14:04 Active 10 ml FLUSH ASDIRECTED PRN Peripheral IV Insertion Adult [OM.PC] Routine Oth 02/01/19 14:04 Ordered Medication Orders Albuterol/Ipratropium (Duoneb 3.0-0.5 Mg/3 Ml) 3 ml NEB Q2H PRN PRN Reason: Shortness of Breath Sodium Chloride (Saline Flush) 10 ml FLUSH ASDIRECTED PRN PRN Reason: Keep Vein Open Labs: Laboratory Tests 02/01/19 02/01/19 02/01/19 Range/Units 14:30 14:30 14:30 WBC 13.0 H (4.0-11.0) K/uL RBC 3.80 L (4.50-6.50) M/uL Hgb 12.4 L (13.0-18.0) g/dL Hct 37.6 L (40.0-54.0) % MCV 99 H (76-96) fL MCH 32.6 H (27.0-32.0) pg MCHC 33.0 (31.0-35.0) g/dL RDW 15.3 (11.0-16.0) % Plt Count 331 (150-400) K/uL MPV 9.3 (6.0-10.0) fL Neut % (Auto) 89.8 H (45.0-70.0) % Lymph % (Auto) 4.0 L (20.0-40.0) % [place] % (Auto) 5.7 (3.0-10.0) % Eos % (Auto) 0.3 L (1.0-5.0) % Baso % (Auto) 0.2 (0.0-0.5) % Neut # (Auto) 11.69 H (2.00-7.50) K/uL Lymph # (Auto) 0.52 L (1.50-4.00) K/uL [place] # (Auto) 0.74 (0.20-0.80) K/uL Eos # (Auto) 0.04 (0.04-0.40) K/uL Baso # (Auto) 0.02 (0.02-0.10) K/uL Sodium 140 (136-145) mmol/L Potassium 4.7 (3.5-5.1) mmol/L Chloride 104 (98-107) mmol/L Carbon Dioxide 23.9 (21.0-32.0) mmol/L Anion Gap 16.8 H (5.0-15.0) mmol/L BUN 18 (8-26) mg/dL Creatinine 1.20 D (0.70-1.30) mg/dL Est Cr Clr Drug Dosing TNP Estimated GFR (MDRD) 59 L (>60) MLS/MIN BUN/Creatinine Ratio 15.0 (6-25) Glucose 136 H D (74-100) mg/dL Calcium 9.8 (8.5-10.1) mg/dL Total Bilirubin 0.3 (0.0-1.0) mg/dL AST 21 (15-37) U/L ALT 15 (12-78) U/L Alkaline Phosphatase 151 H (46-116) U/L Troponin I 0.046 D (0.000-0.060) ng/mL Total Protein 7.6 (6.4-8.2) g/dL Albumin 2.3 L (3.4-5.0) g/dL Globulin 5.3 H (2.2-4.2) g/dL Albumin/Globulin Ratio 0.4 L (0.8-2.0) Meds: Medications Generic Name Dose Route Start Last Admin Trade Name Freq PRN Reason Stop Dose Admin Albuterol/Ipratropium 3 ml 02/01/19 14:04 Duoneb 3.0-0.5 Mg/3 Ml NEB Q2H PRN Shortness of Breath Sodium Chloride 10 ml 02/01/19 14:04 Saline Flush FLUSH ASDIRECTED PRN Keep Vein Open Discontinued Medications Generic Name Dose Route Start Last Admin Trade Name Natalie PRN Reason Stop Dose Admin Albuterol/Ipratropium Confirm 02/01/19 15:13 Duoneb 3.0-0.5 Mg/3 Ml Administered 02/01/19 15:14 Dose 3 ml .ROUTE .STK-MED ONE Diltiazem HCl 10 mg 02/01/19 16:06 Cardizem IVPUSH 02/01/19 16:07 ONETIME ONE Sodium Chloride 500 mls @ 999 mls/hr 02/01/19 16:05 Normal Saline IV 02/01/19 16:35 .BOLUS ONE Metoprolol Tartrate 5 mg/ 55 mls @ 100 mls/hr 02/01/19 16:13 Sodium Chloride IV 02/01/19 16:45 ONETIME ONE Methylprednisolone Sodium Succinate 125 mg 02/01/19 14:05 Solu-Medrol IVPUSH 02/01/19 14:06 ONETIME ONE Methylprednisolone Sodium Succinate Confirm 02/01/19 15:05 Solu-Medrol Administered 02/01/19 15:06 Dose 125 mg .ROUTE .STK-MED ONE Departure - Departure Time of Disposition: 18:10 Disposition: Home, Self-Care 01 Clinical Impression: Atrial fibrillation Qualifiers: Atrial fibrillation type: paroxysmal Qualified Code(s): I48.0 - Paroxysmal atrial fibrillation Referrals: PCP,None [Primary Care Provider] - - Problem List & Annotations (1) Atrial fibrillation SNOMED Code(s): 29327991 Code(s): I48.91 - UNSPECIFIED ATRIAL FIBRILLATION Status: Acute Priority : High Current Visit: Yes Qualifiers: Atrial fibrillation type: paroxysmal Qualified Code(s): I48.0 - Paroxysmal atrial fibrillation - Problem List Review Problem List Initiated/Reviewed/Updated: Yes - My Orders Last 24 Hours: My Active Orders 02/01/19 14:03 Chest 1V Frontal [CR] Stat 02/01/19 14:04 RT Aerosol Therapy [RC] ASDIRECTED Albuterol/Ipratropium [DuoNeb 3.0-0.5 MG/3 ML] 3 ml NEB Q2H PRN Sodium Chloride 0.9% [Saline Flush] 10 ml FLUSH ASDIRECTED PRN Peripheral IV Insertion Adult [OM.PC] Routine 02/01/19 14:59 EKG Documentation Completion [RC] ASDIRECTED - Assessment/Plan Last 24 Hours: My Active Orders 02/01/19 14:03 Chest 1V Frontal [CR] Stat 02/01/19 14:04 RT Aerosol Therapy [RC] ASDIRECTED Albuterol/Ipratropium [DuoNeb 3.0-0.5 MG/3 ML] 3 ml NEB Q2H PRN Sodium Chloride 0.9% [Saline Flush] 10 ml FLUSH ASDIRECTED PRN Peripheral IV Insertion Adult [OM.PC] Routine 02/01/19 14:59 EKG Documentation Completion [RC] ASDIRECTED Plan: Patient was rate controlled and placed on Eliquis. Discussed close f/u in clinic early next week and as needed in ER if symptoms return or worsen. F/u as directed. Counseled on metoprolol and adjustment to 25mg BID. F/u as directed. Call hospital if any concerns or questions.
[2019-02-01 19:39] VITALS: BP 103/71; PULSE 116
--- NOTE | 2019-02-02 21:15 | CR ---
CLINICAL DATA: Shortness of breath. AP PORTABLE CHEST, 01 FEBRUARY 2019: Comparison is made to a prior exam dated 31 January 2019. There is persistent infiltrate and consolidation in the left lower lung with mild progression from the prior study, consistent with pneumonia. There is a persistent left pleural effusion, which has increased. The right lung base does appear slightly clearer than the prior exam. No other interval changes. Job: [id number] MTDD
== END 2019-02-01 18:05 | disposition home or self-care (01) ==
LOC: LB.ED 13:57
DX: I48.0 Paroxysmal atrial fibrillation (principal); I11.0 Hypertensive heart disease with heart failure; I12.0 Hypertensive chronic kidney disease with stage 5 chronic kidney disease or end stage renal disease; J44.9 Chronic obstructive pulmonary disease, unspecified; Z88.8 Allergy status to other drugs, medicaments and biological substances; Z91.041 Radiographic dye allergy status; Z85.46 Personal history of malignant neoplasm of prostate; Z85.01 Personal history of malignant neoplasm of esophagus; Z90.49 Acquired absence of other specified parts of digestive tract; Z90.79 Acquired absence of other genital organ(s)
CPT/HCPCS: 36415; 71045; 80053; 84484; 85025; 93005; 96374; 96375; 99284; 99285-25; A9270-GY; J2930; J3490; J7040; J7050

== ENCOUNTER 2019-02-04 12:37 | Inpatient (IN) | payer OTHER, MEDICARE ==
--- NOTE | 2019-02-04 15:09 | EDM.PDOC ---
ED HPI GENERAL MEDICAL PROBLEM - General Chief Complaint: Respiratory Problem Stated Complaint: LUNG CANCER Time Seen by Provider: 02/04/19 15:00 Source of Information: Reports: Patient, RN - History of Present Illness INITIAL COMMENTS - FREE TEXT/NARRATIVE: 73 yo male presents with shortness of breath, increase over the weekend. He has been to ER with this and atrial fib w RVR and the metoprolol dose was increased. he was seen in the clinic with pneumonia and was started on Augmentin bid and Lasix for heart failure. Pt has oxygen on 07/11 per N/[place]. States nausea now and is taking some fluids. States some diarrhea. 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 He is scheduled for a PET scan 02-13-19 with oncology Aki Renteria [place]. Posterior Back Pain Score (Numeric/FACES): 4 - Related Data Allergies Allergy/AdvReac Type Severity Reaction Status Date / Time ANDRES Inhibitors Allergy Unknown Swollen Verified 02/03/18 03:38 Tongue CONTRAST DYE Allergy Swollen Uncoded 02/03/18 03:38 Tongue Home Meds: Home Meds Multivitamin [Men's Multi-Vitamin] 1 each PO DAILY 05/17/17 [History] Sennosides/Docusate Sodium [Sennosides-Docusate Sodium] 2 each PO BID PRN [History] oxyCODONE 10 mg PO Q4H PRN 11/18/17 [History] Dicyclomine HCl [Bentyl] 10 mg PO ASDIRECTED 06/25/18 [History] Megestrol Acetate 10 ml PO DAILY 06/25/18 [History] Morphine [MS Contin] 15 mg PO Q12HR 06/25/18 [History] Prochlorperazine Maleate [Compazine] 10 mg PO QID PRN 06/25/18 [History] Isosorbide Mononitrate [Imdur] 15 mg PO DAILY tab.er 06/26/18 [Rx] Acetaminophen [Tylenol Extra Strength] 500 mg PO Q6H PRN tablet 07/02/18 [Rx] Acidophilus/Lactobac Spor [Acidolphilus X-Strength] 1 tab PO DAILY@1200 tablet 07/02/18 [Rx] Past Medical History HEENT History: Reports: Impaired Vision, Other (See Below) Other HEENT History: esophagous removed d/t [place], some hearing issues (tinnitus) Cardiovascular History: Reports: Bypass, Heart Murmur, Hypertension, [place], SOB on Exertion, Stents Respiratory History: Reports: COPD, Pneumonia, Recurrent, Pneumothorax Gastrointestinal History: Reports: Chronic Diarrhea, Colon Polyp, Hemorrhoids, Other (See Below) Other Gastrointestinal History: possible hernia in abdomen Genitourinary History: Reports: Chronic Renal Insuffiency, Prostate Disorder, Retention, Urinary, Urinary Incontinence, Other (See Below) Other Genitourinary History: prostate removed d/t CA Musculoskeletal History: Reports: Back Pain, Chronic, Osteoarthritis Psychiatric History: Reports: Anxiety, Depression, Mood Swings, PTSD Other Psychiatric History: ETOH abuse Hematologic History: Reports: Bleeding Disorder, Other (See Below) Other Hematologic History: clotting disorder " I clot quick" Oncologic (Cancer) History: Reports: Esophageal, Prostate, Other (See Below) Other Oncologic History: "some colon polyps were cancerous type I think" Dermatologic History: Reports: Eczema, Other (See Below) Other Dermatologic History: shingles - Infectious Disease History Infectious Disease History: Reports: Other (See Below) Other Infectious Disease History: ' i don t know, i think I have had it all" - Past Surgical History Cardiovascular Surgical History: Reports: Coronary Artery Bypass, Coronary Artery Stent Respiratory Surgical History: Reports: Other (See Below) Other Respiratory Surgeries/Procedures: chest tubes currently in place on R. chest tubes removed and healed on left GI Surgical History: Reports: Other (See Below) Other GI Surgeries/Procedures: stomnach attached top of esophagus with esophageal removal Male Surgical History: Reports: Prostatectomy Musculoskeletal Surgical History: Reports: Arthroscopic Procedure, Other (See Below) Other Musculoskeletal Surgeries/Procedures:: rotator cuff sx arthroscopy previous to sx Social & Family History - Family History Family Medical History: Noncontributory - Caffeine Use Caffeine Use: Reports: Coffee, Soda ED ROS GENERAL - Review of Systems Review Of Systems: See Below Constitutional: Reports: Decreased Appetite HEENT: Reports: No Symptoms Respiratory: Reports: Shortness of Breath, Cough Cardiovascular: Reports: Dyspnea on Exertion GI/Abdominal: Reports: Constipation, Diarrhea, Nausea. Denies: Vomiting Neurological: Reports: Other (light headed) ED EXAM, GENERAL - Physical Exam Exam: See Below General Appearance: Alert, No Apparent Distress Head: Atraumatic, Normocephalic Neck: Supple, Non-Tender, Full Range of Motion Respiratory/Chest: No Respiratory Distress, Decreased Breath Sounds, Crackles. No: Rhonchi, Wheezing Cardiovascular: Normal Peripheral Pulses, No Edema GI/Abdominal: Soft, No Distention, Tender Extremities: Normal Range of Motion Neurological: Alert, Oriented, Normal Cognition Course - Vital Signs Last Recorded V/S: Last Vital Signs Temp Pulse 61 02/04/19 20:03 Resp BP 79/44 L 02/04/19 20:03 Pulse Ox 86 L 02/04/19 16:14 - Orders/Labs/Meds Orders: Active Orders 24 hr Category Date Time Status EKG Documentation Completion [RC] ASDIRECTED Care 02/04/19 16:10 Active Sodium Chloride 0.9% [Saline Flush] Med 02/04/19 15:19 Active 10 ml FLUSH ASDIRECTED PRN Saline Lock Insert [OM.PC] Routine Oth 02/04/19 15:19 Ordered Medication Orders Acetaminophen (Tylenol Extra Strength) 500 mg PO Q6H PRN PRN Reason: Fever Apixaban (Eliquis) 2.5 mg PO BID [facility] Last Admin: 02/04/19 20:09 Dose: 2.5 mg Cyanocobalamin (Vitamin B12) 1,000 mcg PO DAILY [facility] Dicyclomine HCl (Bentyl) 10 mg PO ASDIRECTED PRN PRN Reason: Pain Furosemide (Lasix) 40 mg IVPUSH DAILY [facility] Last Admin: 02/04/19 19:34 Dose: 40 mg Ceftriaxone Sodium 1 gm/ (Sodium Chloride) 50 mls @ 200 mls/hr IV Q24H [facility] Last Admin: 02/04/19 19:00 Dose: 200 mls/hr Azithromycin 500 mg/ Sodium (Chloride) 250 mls @ 250 mls/hr IV Q24H [facility] Last Admin: 02/04/19 19:44 Dose: 250 mls/hr Isosorbide Mononitrate (Imdur) 15 mg PO DAILY [facility] Lactobacillus Acidophilus (Acidolphilus Extra Strength) 1 tab PO DAILY@1200 [facility] Magnesium Chloride (Mag-64) 64 mg PO BID [facility] Last Admin: 02/04/19 20:09 Dose: 64 mg Magnesium Oxide (Magnesium Oxide) 400 mg PO DAILY [facility] Megestrol Acetate (Megace 40 Mg/Ml Susp) 400 mg PO DAILY [facility] Metoprolol Tartrate (Lopressor) 25 mg PO Q12H [facility] Last Admin: 02/04/19 20:03 Dose: Not Given Morphine Sulfate (Ms Contin) 30 mg PO Q12HR [facility] Last Admin: 02/04/19 20:09 Dose: 30 mg Non-Formulary Medication (Multivitamin [Men's Multi-Vitamin]) 1 each PO DAILY [facility] Oxycodone HCl (Oxycodone) 5 mg PO Q4H PRN PRN Reason: Pain (moderate 4-6) Oxycodone HCl (Oxycodone) 10 mg PO Q4H PRN PRN Reason: Pain (moderate 4-6) Pantoprazole Sodium (Protonix) 40 mg PO DAILY [facility] Polyethylene Glycol (Miralax) 17 gm PO BEDTIME PRN PRN Reason: Constipation Potassium Chloride (Klor-Con M20) 20 meq PO DAILY [facility] Prochlorperazine Maleate (Compazine) 10 mg PO QID PRN PRN Reason: Nausea Senna/Docusate Sodium (Senna Plus) 2 tab PO BID PRN PRN Reason: Constipation Sertraline HCl (Zoloft) 75 mg PO BEDTIME [facility] Last Admin: 02/04/19 20:10 Dose: 75 mg Sodium Chloride (Saline Flush) 10 ml FLUSH ASDIRECTED PRN PRN Reason: Keep Vein Open Labs: Laboratory Tests 02/04/19 02/04/19 Range/Units 15:05 15:30 WBC 13.1 H (4.0-11.0) K/uL RBC 3.46 L (4.50-6.50) M/uL Hgb 11.3 L (13.0-18.0) g/dL Hct 34.9 L (40.0-54.0) % MCV 101 H (76-96) fL MCH 32.7 H (27.0-32.0) pg MCHC 32.4 (31.0-35.0) g/dL RDW 14.9 (11.0-16.0) % Plt Count 369 (150-400) K/uL MPV 8.9 (6.0-10.0) fL Neut % (Auto) 88.5 H (45.0-70.0) % Lymph % (Auto) 4.6 L (20.0-40.0) % Maries % (Auto) 6.4 (3.0-10.0) % Eos % (Auto) 0.3 L (1.0-5.0) % Baso % (Auto) 0.2 (0.0-0.5) % Neut # (Auto) 11.63 H (2.00-7.50) K/uL Lymph # (Auto) 0.61 L (1.50-4.00) K/uL Maries # (Auto) 0.84 H (0.20-0.80) K/uL Eos # (Auto) 0.04 (0.04-0.40) K/uL Baso # (Auto) 0.02 (0.02-0.10) K/uL Sodium 140 (136-145) mmol/L Potassium 4.8 (3.5-5.1) mmol/L Chloride 103 (98-107) mmol/L Carbon Dioxide 28.2 (21.0-32.0) mmol/L Anion Gap 13.6 (5.0-15.0) mmol/L BUN 20 (8-26) mg/dL Creatinine 1.09 (0.70-1.30) mg/dL Est Cr Clr Drug Dosing TNP Estimated GFR (MDRD) > 60 (>60) MLS/MIN BUN/Creatinine Ratio 18.3 (6-25) Glucose 152 H (74-100) mg/dL Calcium 9.1 (8.5-10.1) mg/dL B-Natriuretic Peptide 64714 H D (0-125) pg/mL Meds: Medications Generic Name Dose Route Start Last Admin Trade Name Freq PRN Reason Stop Dose Admin Acetaminophen 500 mg 02/04/19 18:00 Tylenol Extra Strength PO Q6H PRN Fever Apixaban 2.5 mg 02/04/19 20:00 02/04/19 20:09 Eliquis PO 2.5 mg BID [facility] Administration Cyanocobalamin 1,000 mcg 02/05/19 08:00 Vitamin B12 PO DAILY [facility] Dicyclomine HCl 10 mg 02/04/19 18:00 Bentyl PO ASDIRECTED PRN Pain Furosemide 40 mg 02/04/19 18:00 02/04/19 19:34 Lasix IVPUSH 40 mg DAILY [facility] Administration Ceftriaxone Sodium 1 gm/ 50 mls @ 200 mls/hr 02/04/19 18:00 02/04/19 19:00 Sodium Chloride IV 200 mls/hr Q24H [facility] Administration Azithromycin 500 mg/ Sodium 250 mls @ 250 mls/hr 02/04/19 18:00 02/04/19 19: 44 Chloride IV 250 mls/hr Q24H [facility] Administration Isosorbide Mononitrate 15 mg 02/05/19 08:00 Imdur PO DAILY [facility] Lactobacillus Acidophilus 1 tab 02/05/19 12:00 Acidolphilus Extra Strength PO DAILY@1200 [facility] Magnesium Chloride 64 mg 02/04/19 20:00 02/04/19 20:09 Mag-64 PO 64 mg BID [facility] Administration Magnesium Oxide 400 mg 02/05/19 08:00 Magnesium Oxide PO DAILY [facility] Megestrol Acetate 400 mg 02/05/19 08:00 Megace 40 Mg/Ml Susp PO DAILY [facility] Metoprolol Tartrate 25 mg 02/04/19 18:15 02/04/19 20:03 Lopressor PO Not Given Q12H [facility] Morphine Sulfate 30 mg 02/04/19 20:00 02/04/19 20:09 Ms Contin PO 30 mg Q12HR [facility] Administration Non-Formulary Medication 1 each 02/05/19 08:00 Multivitamin [Men's Multi-Vitamin] PO DAILY [facility] Oxycodone HCl 5 mg 02/04/19 19:18 Oxycodone PO Q4H PRN Pain (moderate 4-6) Oxycodone HCl 10 mg 02/04/19 19:18 Oxycodone PO Q4H PRN Pain (moderate 4-6) Pantoprazole Sodium 40 mg 02/05/19 08:00 Protonix PO DAILY [facility] Polyethylene Glycol 17 gm 02/04/19 18:12 Miralax PO BEDTIME PRN Constipation Potassium Chloride 20 meq 02/05/19 08:00 Klor-Con M20 PO DAILY [facility] Prochlorperazine Maleate 10 mg 02/04/19 18:00 Compazine PO QID PRN Nausea Senna/Docusate Sodium 2 tab 02/04/19 18:00 Senna Plus PO BID PRN Constipation Sertraline HCl 75 mg 02/04/19 20:00 02/04/19 20:10 Zoloft PO 75 mg BEDTIME [facility] Administration Sodium Chloride 10 ml 02/04/19 15:19 Saline Flush FLUSH ASDIRECTED PRN Keep Vein Open Discontinued Medications Generic Name Dose Route Start Last Admin Trade Name Jasonq PRN Reason Stop Dose Admin Furosemide 20 mg 02/04/19 17:45 02/04/19 20:17 Lasix IVPUSH Not Given DAILY [facility] Oxycodone HCl 10 mg 02/04/19 18:00 Oxycodone PO Q4H PRN Pain (moderate 4-6) Departure - Departure Time of Disposition: 17:40 Disposition: Admitted As Inpatient 66 Condition: Poor Clinical Impression: CHF (congestive heart failure), Pneumonia, Depression, Physical deconditioning , Atrial fibrillation, Nausea - Discharge Information *PRESCRIPTION DRUG MONITORING PROGRAM REVIEWED*: Not Applicable *COPY OF PRESCRIPTION DRUG MONITORING REPORT IN PATIENT TAYLOR: Not Applicable - Problem List & Annotations (1) CHF (congestive heart failure) SNOMED Code(s): 09536527 Code(s): I50.9 - HEART FAILURE, UNSPECIFIED Status: Acute Priority: High Current Visit: Yes Qualifiers: Heart failure type: unspecified Heart failure chronicity: acute on chronic Qualified Code(s): I50.9 - Heart failure, unspecified (2) Pneumonia SNOMED Code(s): 212851462 Code(s): J18.9 - PNEUMONIA, UNSPECIFIED ORGANISM Status: Acute Priority: High Current Visit: Yes Qualifiers: Pneumonia type: due to unspecified organism Laterality: bilateral Lung location: lower lobe of lung Qualified Code(s): J18.1 - Lobar pneumonia, unspecified organism (3) Atrial fibrillation SNOMED Code(s): 27398521 Code(s): I48.91 - UNSPECIFIED ATRIAL FIBRILLATION Status: Acute Priority : High Current Visit: Yes Qualifiers: Atrial fibrillation type: paroxysmal Qualified Code(s): I48.0 - Paroxysmal atrial fibrillation (4) Nausea SNOMED Code(s): 711732682 Code(s): R11.0 - NAUSEA Status: Acute Current Visit: Yes (5) Palliative care patient SNOMED Code(s): 031542043 Code(s): Z51.5 - ENCOUNTER FOR PALLIATIVE CARE Status: Chronic Priority: High Current Visit: No (6) Cancer associated pain SNOMED Code(s): 63215785937658 Code(s): G89.3 - NEOPLASM RELATED PAIN (ACUTE) (CHRONIC) Status: Chronic Current Visit: Yes - Problem List Review Problem List Initiated/Reviewed/Updated: Yes - My Orders Last 24 Hours: My Active Orders 02/04/19 15:19 Sodium Chloride 0.9% [Saline Flush] 10 ml FLUSH ASDIRECTED PRN Saline Lock Insert [OM.PC] Routine 02/04/19 16:10 EKG Documentation Completion [RC] ASDIRECTED - Assessment/Plan Last 24 Hours: My Active Orders 02/04/19 15:19 Sodium Chloride 0.9% [Saline Flush] 10 ml FLUSH ASDIRECTED PRN Saline Lock Insert [OM.PC] Routine 02/04/19 16:10 EKG Documentation Completion [RC] ASDIRECTED Plan: CHF: Saline lock Lasix 40 mg IV [place] catheter I/O Pneumonia: IV Rocephin and Azithromycin VS q 4 hour Insentive spirometer Labs in am. palliative care Cancer related pain States hx of prostate cancer, stomach cancer, lung cancer, brain met. Home medications with chronic opioid use and nausea medication.
[2019-02-04] MEDS ORDERED: Furosemide 20 MG/2 ML VIAL IVPUSH SCH (17:45)
[2019-02-04] MEDS ORDERED: Azithromycin 500 MG AdvVial IV SCH (18:00)
[2019-02-04] MEDS ORDERED: oxyCODONE 5 MG Tab PO PRN ×2 (18:00→19:18)
[2019-02-04] MEDS ORDERED: Dicyclomine 10 MG Cap PO PRN (18:00)
[2019-02-04] MEDS ORDERED: Polyethylene Glycol 3350 Powder 17 GM Packet PO PRN (18:12)
[2019-02-04] MEDS ORDERED: Metoprolol Tartrate 25 MG Tab PO SCH (18:15)
[2019-02-04] MEDS: cefTRIAXone 1 GM in Sodium Chloride 0.9% 50 ML IV SCH ×2 (19:00→21:45)
[2019-02-04] MEDS: Furosemide 20 MG/2 ML VIAL IVPUSH SCH (19:34)
[2019-02-04] MEDS: Azithromycin 500 MG in Sodium Chloride 0.9% 250 ML IV SCH (19:44)
[2019-02-04] MEDS: Morphine 15 MG Tab.ER PO SCH (20:09)
[2019-02-04] MEDS: Magnesium Chloride 64 MG Tab.ER PO SCH (20:09)
[2019-02-04] MEDS: Apixaban 2.5 MG Tab PO SCH (20:09)
[2019-02-04] MEDS: Sertraline 50 MG Tab PO SCH (20:10)
[2019-02-05] MEDS ORDERED: Metoprolol Tartrate 25 MG Tab PO SCH (08:00)
[2019-02-05] MEDS ORDERED: Non-Formulary Medication 1 Each (Multivitamin [Men's Multi-Vitamin] 1 EACH) PO SCH (08:00)
--- NOTE | 2019-02-05 08:26 | PCM.PN ---
- General Info Date of Service: 02/05/19 Admission Dx/Problem (Free Text): acute CHF w elevated BNP 14,000 and pneumonia Functional Status: Reports: Pain Controlled - Review of Systems General: Reports: Weakness, Fatigue Pulmonary: Reports: Shortness of Breath. Denies: Sputum, Wheezing Cardiovascular: Reports: Dyspnea on Exertion. Denies: Chest Pain, Edema Gastrointestinal: Reports: Abdominal Pain, Decreased Appetite - Patient Data Vitals - Most Recent: Last Vital Signs Temp 98.2 F 02/05/19 04:30 Pulse 133 H 02/05/19 04:30 Resp 18 02/05/19 04:30 BP 113/74 02/05/19 04:30 Pulse Ox 98 02/05/19 04:30 I&O - Last 24 Hours: Intake & Output 02/04/19 02/05/19 02/05/19 22:59 06:59 14:59 Intake Total 350 Balance 350 Lab Results Last 24 Hours: Laboratory Results - last 24 hr 02/04/19 02/04/19 02/05/19 Range/Units 15:05 15:30 07:15 WBC 13.1 H 12.4 H (4.0-11.0) K/uL RBC 3.46 L 3.40 L (4.50-6.50) M/uL Hgb 11.3 L 11.1 L (13.0-18.0) g/dL Hct 34.9 L 34.2 L (40.0-54.0) % MCV 101 H 101 H (76-96) fL MCH 32.7 H 32.6 H (27.0-32.0) pg MCHC 32.4 32.5 (31.0-35.0) g/dL RDW 14.9 15.0 (11.0-16.0) % Plt Count 369 427 H (150-400) K/uL MPV 8.9 9.4 (6.0-10.0) fL Neut % (Auto) 88.5 H 86.9 H (45.0-70.0) % Lymph % (Auto) 4.6 L 5.3 L (20.0-40.0) % Wright % (Auto) 6.4 7.3 (3.0-10.0) % Eos % (Auto) 0.3 L 0.5 L (1.0-5.0) % Baso % (Auto) 0.2 0.0 (0.0-0.5) % Neut # (Auto) 11.63 H 10.74 H (2.00-7.50) K/uL Lymph # (Auto) 0.61 L 0.65 L (1.50-4.00) K/uL Wright # (Auto) 0.84 H 0.90 H (0.20-0.80) K/uL Eos # (Auto) 0.04 0.06 (0.04-0.40) K/uL Baso # (Auto) 0.02 0.00 L (0.02-0.10) K/uL Sodium 140 (136-145) mmol/L Potassium 4.8 (3.5-5.1) mmol/L Chloride 103 (98-107) mmol/L Carbon Dioxide 28.2 (21.0-32.0) mmol/L Anion Gap 13.6 (5.0-15.0) mmol/L BUN 20 (8-26) mg/dL Creatinine 1.09 (0.70-1.30) mg/dL Est Cr Clr Drug Dosing TNP Estimated GFR (MDRD) > 60 (>60) MLS/MIN BUN/Creatinine Ratio 18.3 (6-25) Glucose 152 H (74-100) mg/dL Calcium 9.1 (8.5-10.1) mg/dL B-Natriuretic Peptide 92643 H D (0-125) pg/mL 02/05/19 Range/Units 07:15 WBC (4.0-11.0) K/uL RBC (4.50-6.50) M/uL Hgb (13.0-18.0) g/dL Hct (40.0-54.0) % MCV (76-96) fL MCH (27.0-32.0) pg MCHC (31.0-35.0) g/dL RDW (11.0-16.0) % Plt Count (150-400) K/uL MPV (6.0-10.0) fL Neut % (Auto) (45.0-70.0) % Lymph % (Auto) (20.0-40.0) % Wright % (Auto) (3.0-10.0) % Eos % (Auto) (1.0-5.0) % Baso % (Auto) (0.0-0.5) % Neut # (Auto) (2.00-7.50) K/uL Lymph # (Auto) (1.50-4.00) K/uL Wright # (Auto) (0.20-0.80) K/uL Eos # (Auto) (0.04-0.40) K/uL Baso # (Auto) (0.02-0.10) K/uL Sodium 145 (136-145) mmol/L Potassium 3.9 (3.5-5.1) mmol/L Chloride 105 (98-107) mmol/L Carbon Dioxide 28.8 (21.0-32.0) mmol/L Anion Gap 15.1 H (5.0-15.0) mmol/L BUN 18 (8-26) mg/dL Creatinine 0.82 D (0.70-1.30) mg/dL Est Cr Clr Drug Dosing TNP Estimated GFR (MDRD) > 60 (>60) MLS/MIN BUN/Creatinine Ratio 22.0 (6-25) Glucose 99 D (74-100) mg/dL Calcium 9.0 (8.5-10.1) mg/dL B-Natriuretic Peptide (0-125) pg/mL Med Orders - Current: Current Medications Acetaminophen (Tylenol Extra Strength) 500 mg PO Q6H PRN PRN Reason: Fever Apixaban (Eliquis) 2.5 mg PO BID [facility] Last Admin: 02/04/19 20:09 Dose: 2.5 mg Cyanocobalamin (Vitamin B12) 1,000 mcg PO DAILY [facility] Dicyclomine HCl (Bentyl) 10 mg PO ASDIRECTED PRN PRN Reason: Pain Furosemide (Lasix) 20 mg IVPUSH BID [facility] Ceftriaxone Sodium 1 gm/ (Sodium Chloride) 50 mls @ 200 mls/hr IV Q24H [facility] Last Admin: 02/04/19 21:45 Dose: Not Given Azithromycin 500 mg/ Sodium (Chloride) 250 mls @ 250 mls/hr IV Q24H [facility] Last Admin: 02/04/19 19:44 Dose: 250 mls/hr Isosorbide Mononitrate (Imdur) 15 mg PO DAILY [facility] Lactobacillus Acidophilus (Acidolphilus Extra Strength) 1 tab PO DAILY@1200 [facility] Magnesium Chloride (Mag-64) 64 mg PO BID [facility] Last Admin: 02/04/19 20:09 Dose: 64 mg Magnesium Oxide (Magnesium Oxide) 400 mg PO DAILY [facility] Megestrol Acetate (Megace 40 Mg/Ml Susp) 400 mg PO DAILY [facility] Metoprolol Tartrate (Lopressor) 12.5 mg PO Q12H [facility] Morphine Sulfate (Ms Contin) 30 mg PO Q12HR [facility] Last Admin: 02/04/19 20:09 Dose: 30 mg Multivitamins/Minerals (Thera M Plus) 1 tab PO DAILY [facility] Oxycodone HCl (Oxycodone) 10 mg PO Q4H PRN PRN Reason: Pain (moderate 4-6) Pantoprazole Sodium (Protonix) 40 mg PO DAILY [facility] Polyethylene Glycol (Miralax) 17 gm PO BEDTIME PRN PRN Reason: Constipation Potassium Chloride (Klor-Con M20) 20 meq PO DAILY [facility] Prochlorperazine Maleate (Compazine) 10 mg PO QID PRN PRN Reason: Nausea Senna/Docusate Sodium (Senna Plus) 2 tab PO BID PRN PRN Reason: Constipation Sertraline HCl (Zoloft) 75 mg PO BEDTIME [facility] Last Admin: 02/04/19 20:10 Dose: 75 mg Sodium Chloride (Saline Flush) 10 ml FLUSH ASDIRECTED PRN PRN Reason: Keep Vein Open Discontinued Medications Furosemide (Lasix) 20 mg IVPUSH DAILY [facility] Last Admin: 02/04/19 20:17 Dose: Not Given Furosemide (Lasix) 40 mg IVPUSH DAILY [facility] Last Admin: 02/04/19 19:34 Dose: 40 mg Metoprolol Tartrate (Lopressor) 25 mg PO Q12H [facility] Last Admin: 02/04/19 20:03 Dose: Not Given Metoprolol Tartrate (Lopressor) 25 mg PO BID [facility] Non-Formulary Medication (Multivitamin [Men's Multi-Vitamin]) 1 each PO DAILY [facility] Oxycodone HCl (Oxycodone) 10 mg PO Q4H PRN PRN Reason: Pain (moderate 4-6) Oxycodone HCl (Oxycodone) 5 mg PO Q4H PRN PRN Reason: Pain (moderate 4-6) - Exam Quality Assessment: Supplemental Oxygen, Urine Catheter. No: Skin Breakdown General: Alert, Oriented, Cooperative, No Acute Distress HEENT: Mucous Membr. Moist/[place] Neck: Supple, Trachea Midline Lungs: Normal Respiratory Effort, Decreased Breath Sounds (bases), Crackles ( bases bilaterally) Cardiovascular: Irregular Rhythm, Tachycardia GI/Abdominal Exam: Soft, No Distention, Other (concave) Extremities: Non-Tender, No Pedal Edema Skin: Warm, Dry Neurological: No New Focal Deficit Psy/Mental Status: Alert - Problem List & Annotations (1) CHF (congestive heart failure) SNOMED Code(s): 48158385 Code(s): I50.9 - HEART FAILURE, UNSPECIFIED Status: Acute Priority: High Current Visit: Yes Qualifiers: Heart failure type: unspecified Heart failure chronicity: acute on chronic Qualified Code(s): I50.9 - Heart failure, unspecified (2) Pneumonia SNOMED Code(s): 657692743 Code(s): J18.9 - PNEUMONIA, UNSPECIFIED ORGANISM Status: Acute Priority: High Current Visit: Yes Qualifiers: Pneumonia type: due to unspecified organism Laterality: bilateral Lung location: lower lobe of lung Qualified Code(s): J18.1 - Lobar pneumonia, unspecified organism (3) Atrial fibrillation SNOMED Code(s): 61420143 Code(s): I48.91 - UNSPECIFIED ATRIAL FIBRILLATION Status: Acute Priority : High Current Visit: Yes Qualifiers: Atrial fibrillation type: paroxysmal Qualified Code(s): I48.0 - Paroxysmal atrial fibrillation (4) Nausea SNOMED Code(s): 196368339 Code(s): R11.0 - NAUSEA Status: Acute Current Visit: Yes (5) Palliative care patient SNOMED Code(s): 097354949 Code(s): Z51.5 - ENCOUNTER FOR PALLIATIVE CARE Status: Chronic Priority: High Current Visit: No (6) Cancer associated pain SNOMED Code(s): 01170106028005 Code(s): G89.3 - NEOPLASM RELATED PAIN (ACUTE) (CHRONIC) Status: Chronic Current Visit: Yes - Problem List Review Problem List Initiated/Reviewed/Updated: Yes - My Orders Last 24 Hours: My Active Orders 02/04/19 15:19 Sodium Chloride 0.9% [Saline Flush] 10 ml FLUSH ASDIRECTED PRN Saline Lock Insert [OM.PC] Routine 02/04/19 16:10 EKG Documentation Completion [RC] ASDIRECTED 02/04/19 17:40 Patient Status [ADT] Routine 02/04/19 17:42 Oxygen Therapy Adult [Oxygen Therapy] [RC] ASDIRECTED 02/04/19 17:44 Intake and Output [RC] ASDIRECTED Urinary Catheter Assessment [RC] ASDIRECTED 02/04/19 17:45 [place] Catheter Insertion [Insert Urinary Catheter] [OM.PC] Q24H Vital Signs [RC] Q4H 02/04/19 18:00 Acetaminophen [Tylenol Extra Strength] 500 mg PO Q6H PRN Azithromycin [Zithromax] 500 mg Sodium Chloride 0.9% [Normal Saline] 250 ml IV Q24H Dicyclomine [Bentyl] 10 mg PO ASDIRECTED PRN Docusate Sodium/Sennosides [Senna Plus] 2 tab PO BID PRN Prochlorperazine [Compazine] 10 mg PO QID PRN cefTRIAXone [Rocephin] 1 gm Sodium Chloride 0.9% [Normal Saline] 50 ml IV Q24H 02/04/19 18:12 Polyethylene Glycol 3350 [MiraLAX] 17 gm PO BEDTIME PRN 02/04/19 19:18 oxyCODONE 10 mg PO Q4H PRN 02/04/19 20:00 Apixaban [Eliquis] 2.5 mg PO BID Magnesium Chloride [Mag-64] 64 mg PO BID Morphine [MS Contin] 30 mg PO Q12HR Sertraline [Zoloft] 75 mg PO BEDTIME 02/05/19 08:00 Cyanocobalamin (Vitamin B12) [Vitamin B12] 1,000 mcg PO DAILY Isosorbide Mononitrate [Imdur] 15 mg PO DAILY Magnesium Oxide 400 mg PO DAILY Megestrol [Megace 40 MG/ML Susp] 400 mg PO DAILY Multivitamins w-Iron/Ca/FA/Min [Thera M Plus] 1 tab PO DAILY Pantoprazole [ProTONIX] 40 mg PO DAILY Potassium Chloride [Klor-Con M20] 20 meq PO DAILY 02/05/19 08:30 Furosemide [Lasix] 20 mg IVPUSH BID Metoprolol Tartrate [Lopressor] 12.5 mg PO Q12H 02/05/19 12:00 Acidophilus/Lactobac Spor [Acidolphilus Extra Strength] 1 tab PO DAILY@1200 02/05/19 Breakfast Soft Diet [DIET] - Plan Plan:: CHF w Elevated BNP and hypotension: Good urine output last night of 850 Will change Lasix 40 mg IV daily to 20 mg IV bid Irregular heart rate 136 this am and Metoprolol was held last night r/t BP Will decrease Metoprolol dose to 12.5 mg PO bid for rate control Pneumonia: WBC has slight decrease. Continue with Azithromycin IV daily and rocephin IV daily. Monitor VS q 4 hour while awake Cancer pain: Continue to medicate with MS contin as ordered.
[2019-02-05] MEDS: Apixaban 2.5 MG Tab PO SCH ×2 (08:45→19:43)
[2019-02-05] MEDS: Isosorbide Mononitrate 30 MG Tab.ER PO SCH (08:46)
[2019-02-05] MEDS: Potassium Chloride 20 MEQ Tab.ER PO SCH (08:49)
[2019-02-05] MEDS: Magnesium Chloride 64 MG Tab.ER PO SCH ×2 (08:49→19:43)
[2019-02-05] MEDS: Magnesium Oxide 400 MG Tab PO SCH (08:50)
[2019-02-05] MEDS: Megestrol Susp 40 MG/ML ML (240 ML Bottle) PO SCH (08:51)
[2019-02-05] MEDS: Pantoprazole 40 MG Tab.CR PO SCH (08:56)
[2019-02-05] MEDS: cefTRIAXone 1 GM in Sodium Chloride 0.9% 50 ML IV SCH ×2 (08:56→18:47)
[2019-02-05] MEDS: Multivitamins with Iron/Calcium/Folic Acid/Minerals Tab PO SCH (08:56)
[2019-02-05] MEDS: Cyanocobalamin (Vitamin B12) 1,000 MCG Tab PO SCH (08:57)
[2019-02-05] MEDS: Metoprolol Tartrate 25 MG Tab PO SCH ×2 (08:58→19:43)
[2019-02-05] MEDS: Morphine 15 MG Tab.ER PO SCH ×2 (08:59→19:43)
[2019-02-05] MEDS: Furosemide 20 MG/2 ML VIAL IVPUSH SCH ×3 (09:13→18:48)
[2019-02-05] MEDS: Prochlorperazine 10 MG Tab PO PRN ×2 (09:16→16:05)
[2019-02-05] MEDS: Lactobacillus Acidophilus/Lactobacillus Sporogenes (Probiotic) Tab PO SCH (11:52)
[2019-02-05] MEDS: oxyCODONE 5 MG Tab PO PRN (11:52)
[2019-02-05] MEDS: Azithromycin 500 MG in Sodium Chloride 0.9% 250 ML IV SCH ×2 (12:52→18:48)
[2019-02-05] MEDS: Acetaminophen 500 MG Tab PO PRN (16:00)
[2019-02-05] MEDS: Sertraline 50 MG Tab PO SCH (19:43)
[2019-02-05] MEDS: Sodium Chloride 0.9% 10 ML Syringe FLUSH PRN (19:51)
[2019-02-06] MEDS: oxyCODONE 5 MG Tab PO PRN ×4 (00:10→20:20)
[2019-02-06] MEDS: Acetaminophen 500 MG Tab PO PRN ×3 (00:10→20:19)
[2019-02-06] MEDS: Prochlorperazine 10 MG Tab PO PRN ×2 (06:29→12:10)
[2019-02-06] MEDS ORDERED: Loperamide 2 MG Cap ONE (06:39)
[2019-02-06] MEDS ORDERED: Loperamide 2 MG Cap PO PRN (06:40)
[2019-02-06] MEDS: Furosemide 20 MG/2 ML VIAL IVPUSH SCH ×2 (07:31→15:59)
[2019-02-06] MEDS: Isosorbide Mononitrate 30 MG Tab.ER PO SCH (07:56)
[2019-02-06] MEDS: Apixaban 2.5 MG Tab PO SCH ×2 (07:56→20:45)
[2019-02-06] MEDS: Potassium Chloride 20 MEQ Tab.ER PO SCH (07:57)
[2019-02-06] MEDS: Magnesium Chloride 64 MG Tab.ER PO SCH ×2 (07:58→20:21)
[2019-02-06] MEDS: Magnesium Oxide 400 MG Tab PO SCH (07:58)
[2019-02-06] MEDS: Morphine 15 MG Tab.ER PO SCH ×2 (07:59→20:19)
[2019-02-06] MEDS: Pantoprazole 40 MG Tab.CR PO SCH (08:00)
[2019-02-06] MEDS: Multivitamins with Iron/Calcium/Folic Acid/Minerals Tab PO SCH (08:00)
[2019-02-06] MEDS: Cyanocobalamin (Vitamin B12) 1,000 MCG Tab PO SCH (08:01)
[2019-02-06] MEDS: Metoprolol Tartrate 25 MG Tab PO SCH ×2 (08:04→20:25)
[2019-02-06] MEDS: cefTRIAXone 1 GM in Sodium Chloride 0.9% 50 ML IV SCH ×2 (08:06→08:45)
--- NOTE | 2019-02-06 10:24 | PCM.PN ---
- General Info Date of Service: 02/06/19 Admission Dx/Problem (Free Text): acute CHF w elevated BNP 14,000 and pneumonia Subjective Update: Pt states nausea intermittently, shortness of breath, and little appetite. Functional Status: Reports: Pain Controlled, Other (hawkins catheter for strict I/ O) - Review of Systems General: Reports: Weakness. Denies: Fever HEENT: Reports: No Symptoms Pulmonary: Reports: Shortness of Breath, Cough Cardiovascular: Reports: Dyspnea on Exertion. Denies: Chest Pain, Edema Gastrointestinal: Reports: Decreased Appetite, Nausea, Other (loose stool) Musculoskeletal: Reports: No Symptoms Skin: Reports: No Symptoms Neurological: Reports: No Symptoms Psychiatric: Reports: No Symptoms - Patient Data Vitals - Most Recent: Last Vital Signs Temp 96.8 F 02/06/19 08:00 Pulse 107 H 02/06/19 08:04 Resp 12 02/06/19 08:00 BP 106/74 02/06/19 08:04 Pulse Ox 92 L 02/06/19 00:00 I&O - Last 24 Hours: Intake & Output 02/05/19 02/06/19 02/06/19 22:59 06:59 14:59 Intake Total 1480 400 Output Total 475 425 Balance 1005 -25 Lab Results Last 24 Hours: Laboratory Results - last 24 hr 02/06/19 02/06/19 02/06/19 Range/Units 07:55 07:55 07:55 WBC 12.2 H (4.0-11.0) K/uL RBC 3.49 L (4.50-6.50) M/uL Hgb 11.4 L (13.0-18.0) g/dL Hct 35.3 L (40.0-54.0) % MCV 101 H (76-96) fL MCH 32.7 H (27.0-32.0) pg MCHC 32.3 (31.0-35.0) g/dL RDW 15.1 (11.0-16.0) % Plt Count 475 H (150-400) K/uL MPV 9.1 (6.0-10.0) fL Neut % (Auto) 89.7 H (45.0-70.0) % Lymph % (Auto) 4.3 L (20.0-40.0) % [place] % (Auto) 5.1 (3.0-10.0) % Eos % (Auto) 0.7 L (1.0-5.0) % Baso % (Auto) 0.2 (0.0-0.5) % Neut # (Auto) 10.90 H (2.00-7.50) K/uL Lymph # (Auto) 0.52 L (1.50-4.00) K/uL [place] # (Auto) 0.62 (0.20-0.80) K/uL Eos # (Auto) 0.09 (0.04-0.40) K/uL Baso # (Auto) 0.02 (0.02-0.10) K/uL Sodium 140 (136-145) mmol/L Potassium 3.9 (3.5-5.1) mmol/L Chloride 103 (98-107) mmol/L Carbon Dioxide 28.9 (21.0-32.0) mmol/L Anion Gap 12.0 (5.0-15.0) mmol/L BUN 18 (8-26) mg/dL Creatinine 0.80 (0.70-1.30) mg/dL Est Cr Clr Drug Dosing TNP Estimated GFR (MDRD) > 60 (>60) MLS/MIN BUN/Creatinine Ratio 22.5 (6-25) Glucose 113 H (74-100) mg/dL Lactic Acid 0.67 L (0.90-1.70) mmol/L Calcium 9.0 (8.5-10.1) mg/dL Med Orders - Current: Current Medications Acetaminophen (Tylenol Extra Strength) 500 mg PO Q6H PRN PRN Reason: Fever Last Admin: 02/06/19 06:29 Dose: 500 mg Apixaban (Eliquis) 2.5 mg PO BID [facility] Last Admin: 02/06/19 07:56 Dose: 2.5 mg Cyanocobalamin (Vitamin B12) 1,000 mcg PO DAILY [facility] Last Admin: 02/06/19 08:01 Dose: 1,000 mcg Dicyclomine HCl (Bentyl) 10 mg PO ASDIRECTED PRN PRN Reason: Pain Furosemide (Lasix) 20 mg IVPUSH BIDDIURETIC [facility] Last Admin: 02/06/19 07:31 Dose: 20 mg Azithromycin 500 mg/ Sodium (Chloride) 250 mls @ 250 mls/hr IV 1300 [facility] Ceftriaxone Sodium 1 gm/ (Sodium Chloride) 50 mls @ 200 mls/hr IV 0900 [facility] Last Admin: 02/06/19 08:06 Dose: 200 mls/hr Isosorbide Mononitrate (Imdur) 15 mg PO DAILY [facility] Last Admin: 02/06/19 07:56 Dose: 15 mg Lactobacillus Acidophilus (Acidolphilus Extra Strength) 1 tab PO DAILY@1200 [facility] Last Admin: 02/05/19 11:52 Dose: 1 tab Loperamide HCl (Imodium) 4 mg PO ASDIRECTED PRN PRN Reason: Diarrhea Last Admin: 02/06/19 06:30 Dose: 4 mg Magnesium Chloride (Mag-64) 64 mg PO BID [facility] Last Admin: 02/06/19 07:58 Dose: 64 mg Magnesium Oxide (Magnesium Oxide) 400 mg PO DAILY [facility] Last Admin: 02/06/19 07:58 Dose: 400 mg Megestrol Acetate (Megace 40 Mg/Ml Susp) 400 mg PO DAILY [facility] Last Admin: 02/05/19 08:51 Dose: Not Given Metoprolol Tartrate (Lopressor) 25 mg PO Q12H [facility] Metoprolol Tartrate (Lopressor) 12.5 mg PO ONETIME ONE Stop: 02/06/19 11:01 Morphine Sulfate (Ms Contin) 30 mg PO Q12HR [facility] Last Admin: 02/06/19 07:59 Dose: 30 mg Multivitamins/Minerals (Thera M Plus) 1 tab PO DAILY [facility] Last Admin: 02/06/19 08:00 Dose: 1 tab Oxycodone HCl (Oxycodone) 10 mg PO Q4H PRN PRN Reason: Pain (moderate 4-6) Last Admin: 02/06/19 06:29 Dose: 10 mg Pantoprazole Sodium (Protonix) 40 mg PO DAILY [facility] Last Admin: 02/06/19 08:00 Dose: 40 mg Polyethylene Glycol (Miralax) 17 gm PO BEDTIME PRN PRN Reason: Constipation Potassium Chloride (Klor-Con M20) 20 meq PO DAILY [facility] Last Admin: 02/06/19 07:57 Dose: 20 meq Prochlorperazine Maleate (Compazine) 10 mg PO QID PRN PRN Reason: Nausea Last Admin: 02/06/19 06:29 Dose: 10 mg Senna/Docusate Sodium (Senna Plus) 2 tab PO BID PRN PRN Reason: Constipation Sertraline HCl (Zoloft) 75 mg PO BEDTIME [facility] Last Admin: 02/05/19 19:43 Dose: 75 mg Sodium Chloride (Saline Flush) 10 ml FLUSH ASDIRECTED PRN PRN Reason: Keep Vein Open Last Admin: 02/05/19 19:51 Dose: 10 ml Discontinued Medications Furosemide (Lasix) 20 mg IVPUSH DAILY [facility] Last Admin: 02/04/19 20:17 Dose: Not Given Furosemide (Lasix) 40 mg IVPUSH DAILY [facility] Last Admin: 02/05/19 18:48 Dose: Not Given Ceftriaxone Sodium 1 gm/ (Sodium Chloride) 50 mls @ 200 mls/hr IV Q24H [facility] Last Admin: 02/05/19 18:47 Dose: Not Given Azithromycin 500 mg/ Sodium (Chloride) 250 mls @ 250 mls/hr IV Q24H [facility] Last Admin: 02/05/19 18:48 Dose: Not Given Loperamide HCl (Imodium) Confirm Administered Dose 4 mg .ROUTE .ST-MED ONE Stop: 02/06/19 06:40 Last Admin: 02/06/19 07:19 Dose: Not Given Metoprolol Tartrate (Lopressor) 25 mg PO Q12H [facility] Last Admin: 02/04/19 20:03 Dose: Not Given Metoprolol Tartrate (Lopressor) 25 mg PO BID [facility] Last Admin: 02/05/19 18:49 Dose: Not Given Metoprolol Tartrate (Lopressor) 12.5 mg PO Q12H [facility] Last Admin: 02/06/19 08:04 Dose: 12.5 mg Non-Formulary Medication (Multivitamin [Men's Multi-Vitamin]) 1 each PO DAILY [facility] Oxycodone HCl (Oxycodone) 10 mg PO Q4H PRN PRN Reason: Pain (moderate 4-6) Oxycodone HCl (Oxycodone) 5 mg PO Q4H PRN PRN Reason: Pain (moderate 4-6) - Exam Quality Assessment: Supplemental Oxygen, Urine Catheter. No: Skin Breakdown General: Alert, Oriented, Cooperative, No Acute Distress HEENT: Mucous Membr. Moist/[place] Neck: Supple, Trachea Midline Lungs: Normal Respiratory Effort, Crackles (bases) Cardiovascular: Irregular Rhythm, Tachycardia (Rate is improving with Metoprolol ) GI/Abdominal Exam: Soft, Non-Tender. No: Guarding, Rigid Back Exam: Normal Inspection Extremities: Normal Range of Motion, No Pedal Edema Skin: Warm, Dry Neurological: No New Focal Deficit Psy/Mental Status: Alert, Depressed - Problem List & Annotations (1) CHF (congestive heart failure) SNOMED Code(s): 41899731 Code(s): I50.9 - HEART FAILURE, UNSPECIFIED Status: Acute Priority: High Current Visit: Yes Qualifiers: Heart failure type: unspecified Heart failure chronicity: acute on chronic Qualified Code(s): I50.9 - Heart failure, unspecified (2) Pneumonia SNOMED Code(s): 956543990 Code(s): J18.9 - PNEUMONIA, UNSPECIFIED ORGANISM Status: Acute Priority: High Current Visit: Yes Qualifiers: Pneumonia type: due to unspecified organism Laterality: bilateral Lung location: lower lobe of lung Qualified Code(s): J18.1 - Lobar pneumonia, unspecified organism (3) Atrial fibrillation SNOMED Code(s): 34599743 Code(s): I48.91 - UNSPECIFIED ATRIAL FIBRILLATION Status: Acute Priority : High Current Visit: Yes Qualifiers: Atrial fibrillation type: paroxysmal Qualified Code(s): I48.0 - Paroxysmal atrial fibrillation (4) Nausea SNOMED Code(s): 664834518 Code(s): R11.0 - NAUSEA Status: Acute Current Visit: Yes (5) Palliative care patient SNOMED Code(s): 509421685 Code(s): Z51.5 - ENCOUNTER FOR PALLIATIVE CARE Status: Chronic Priority: High Current Visit: No (6) Cancer associated pain SNOMED Code(s): 26570915237943 Code(s): G89.3 - NEOPLASM RELATED PAIN (ACUTE) (CHRONIC) Status: Chronic Current Visit: Yes - Problem List Review Problem List Initiated/Reviewed/Updated: Yes - My Orders Last 24 Hours: My Active Orders 02/05/19 12:00 Acidophilus/Lactobac Spor [Acidolphilus Extra Strength] 1 tab PO DAILY@1200 02/05/19 22:13 Resuscitation Status Routine 02/06/19 06:40 Loperamide [Imodium] 4 mg PO ASDIRECTED PRN 02/06/19 09:00 cefTRIAXone [Rocephin] 1 gm Sodium Chloride 0.9% [Normal Saline] 50 ml IV 0900 02/06/19 09:43 CULTURE MRSA SURVEY [RM] Routine 02/06/19 11:00 Metoprolol Tartrate [Lopressor] 12.5 mg PO ONETIME ONE 02/06/19 13:00 Azithromycin [Zithromax] 500 mg Sodium Chloride 0.9% [Normal Saline] 250 ml IV 1300 02/06/19 20:00 Metoprolol Tartrate [Lopressor] 25 mg PO Q12H 02/07/19 08:00 BASIC METABOLIC PANEL,BMP [CHEM] Routine CBC WITH AUTO DIFF [HEME] Stat - Plan Plan:: CHF w Elevated BNP and hypotension: Good urine output last night of 850 Will change Lasix 40 mg IV daily to 20 mg IV bid Irregular heart rate 136 this am and Metoprolol was held last night r/t BP Will decrease Metoprolol dose to 12.5 mg PO bid for rate control Pneumonia: WBC has slight decrease. Continue with Azithromycin IV daily and rocephin IV daily. Monitor VS q 4 hour while awake Cancer pain: Continue to medicate with MS contin as ordered. 02-06-2019 Shortness of breath continues and nausea continues. Neck veins are slightly elevated. No peripheral edema. WBC is slowly decreasing. Will increase the Metoprolol today to slow the heart rate and hopefully the shortness of breath will decrease. Continue with supportive oxygen and he does use this continuous at home. Lasix 20 mg IV bid today. Continue to assess and medicate as needed for pain and nausea. Accurate I/O.
[2019-02-06] MEDS ORDERED: Metoprolol Tartrate 25 MG Tab PO ONE (11:00)
[2019-02-06] MEDS: Lactobacillus Acidophilus/Lactobacillus Sporogenes (Probiotic) Tab PO SCH (12:01)
[2019-02-06] MEDS: Azithromycin 500 MG in Sodium Chloride 0.9% 250 ML IV SCH (12:40)
[2019-02-06] MEDS: Megestrol Susp 40 MG/ML ML (240 ML Bottle) PO SCH (15:13)
[2019-02-06] MEDS: Sertraline 50 MG Tab PO SCH (20:27)
[2019-02-06] MEDS: Sodium Chloride 0.9% 10 ML Syringe FLUSH PRN (20:48)
[2019-02-07] MEDS: oxyCODONE 5 MG Tab PO PRN ×4 (02:57→21:00)
[2019-02-07] MEDS: Morphine 15 MG Tab.ER PO SCH ×2 (08:07→20:59)
[2019-02-07] MEDS: Pantoprazole 40 MG Tab.CR PO SCH (08:11)
[2019-02-07] MEDS: Apixaban 2.5 MG Tab PO SCH ×2 (08:11→20:59)
[2019-02-07] MEDS: Magnesium Chloride 64 MG Tab.ER PO SCH ×2 (08:11→21:00)
[2019-02-07] MEDS: Cyanocobalamin (Vitamin B12) 1,000 MCG Tab PO SCH (08:11)
[2019-02-07] MEDS: Magnesium Oxide 400 MG Tab PO SCH (08:12)
[2019-02-07] MEDS: Metoprolol Tartrate 25 MG Tab PO SCH ×2 (08:12→21:01)
[2019-02-07] MEDS: Multivitamins with Iron/Calcium/Folic Acid/Minerals Tab PO SCH (08:12)
[2019-02-07] MEDS: Potassium Chloride 20 MEQ Tab.ER PO SCH (08:12)
[2019-02-07] MEDS: Isosorbide Mononitrate 30 MG Tab.ER PO SCH (08:12)
[2019-02-07] MEDS: Megestrol Susp 40 MG/ML ML (240 ML Bottle) PO SCH (08:18)
[2019-02-07] MEDS: Furosemide 20 MG/2 ML VIAL IVPUSH SCH ×2 (08:30→16:32)
[2019-02-07] MEDS: cefTRIAXone 1 GM in Sodium Chloride 0.9% 50 ML IV SCH (08:33)
--- NOTE | 2019-02-07 09:00 | PCM.PN ---
- General Info Date of Service: 02/07/19 Admission Dx/Problem (Free Text): acute CHF w elevated BNP 14,000 and pneumonia Subjective Update: Pt states he is feeling weak today and no energy. Functional Status: Reports: Pain Controlled, Other (eating small amounts) - Review of Systems General: Reports: Weakness Pulmonary: Reports: Shortness of Breath. Denies: Cough Cardiovascular: Reports: Dyspnea on Exertion. Denies: Chest Pain, Edema Gastrointestinal: Reports: Abdominal Pain, Decreased Appetite Genitourinary: Reports: Hematuria Musculoskeletal: Reports: No Symptoms Skin: Reports: No Symptoms Neurological: Reports: No Symptoms - Patient Data Vitals - Most Recent: Last Vital Signs Temp 98.3 F 02/07/19 03:08 Pulse 124 H 02/07/19 08:12 Resp 15 02/07/19 03:08 BP 114/93 H 02/07/19 08:12 Pulse Ox 99 02/07/19 03:08 Weight - Most Recent: 115 lb 12.8 oz I&O - Last 24 Hours: Intake & Output 02/06/19 02/07/19 02/07/19 22:59 06:59 14:59 Intake Total 645 250 Output Total 650 240 Balance -5 10 Lab Results Last 24 Hours: Laboratory Results - last 24 hr 02/07/19 02/07/19 Range/Units 07:15 07:15 WBC 10.9 (4.0-11.0) K/uL RBC 3.43 L (4.50-6.50) M/uL Hgb 11.3 L (13.0-18.0) g/dL Hct 34.2 L (40.0-54.0) % MCV 100 H (76-96) fL MCH 32.9 H (27.0-32.0) pg MCHC 33.0 (31.0-35.0) g/dL RDW 15.4 (11.0-16.0) % Plt Count 484 H (150-400) K/uL MPV 9.3 (6.0-10.0) fL Neut % (Auto) 87.7 H (45.0-70.0) % Lymph % (Auto) 5.4 L (20.0-40.0) % [place] % (Auto) 5.4 (3.0-10.0) % Eos % (Auto) 1.3 (1.0-5.0) % Baso % (Auto) 0.2 (0.0-0.5) % Neut # (Auto) 9.51 H (2.00-7.50) K/uL Lymph # (Auto) 0.59 L (1.50-4.00) K/uL [place] # (Auto) 0.59 (0.20-0.80) K/uL Eos # (Auto) 0.14 (0.04-0.40) K/uL Baso # (Auto) 0.02 (0.02-0.10) K/uL Sodium 144 (136-145) mmol/L Potassium 4.2 (3.5-5.1) mmol/L Chloride 106 (98-107) mmol/L Carbon Dioxide 31.2 (21.0-32.0) mmol/L Anion Gap 11.0 (5.0-15.0) mmol/L BUN 19 (8-26) mg/dL Creatinine 0.88 (0.70-1.30) mg/dL Est Cr Clr Drug Dosing 55.54 mL/min Estimated GFR (MDRD) > 60 (>60) MLS/MIN BUN/Creatinine Ratio 21.6 (6-25) Glucose 100 (74-100) mg/dL Calcium 8.9 (8.5-10.1) mg/dL Med Orders - Current: Current Medications Acetaminophen (Tylenol Extra Strength) 500 mg PO Q6H PRN PRN Reason: Fever Last Admin: 02/06/19 20:19 Dose: 500 mg Apixaban (Eliquis) 2.5 mg PO BID [facility] Last Admin: 02/07/19 08:11 Dose: 2.5 mg Cyanocobalamin (Vitamin B12) 1,000 mcg PO DAILY [facility] Last Admin: 02/07/19 08:11 Dose: 1,000 mcg Dicyclomine HCl (Bentyl) 10 mg PO ASDIRECTED PRN PRN Reason: Pain Furosemide (Lasix) 20 mg IVPUSH BIDDIURETIC [facility] Last Admin: 02/07/19 08:30 Dose: 20 mg Azithromycin 500 mg/ Sodium (Chloride) 250 mls @ 250 mls/hr IV 1300 [facility] Last Admin: 02/06/19 12:40 Dose: 250 mls/hr Ceftriaxone Sodium 1 gm/ (Sodium Chloride) 50 mls @ 200 mls/hr IV 0900 [facility] Last Admin: 02/07/19 08:33 Dose: 200 mls/hr Isosorbide Mononitrate (Imdur) 15 mg PO DAILY [facility] Last Admin: 02/07/19 08:12 Dose: 15 mg Lactobacillus Acidophilus (Acidolphilus Extra Strength) 1 tab PO DAILY@1200 [facility] Last Admin: 02/06/19 12:01 Dose: 1 tab Loperamide HCl (Imodium) 4 mg PO ASDIRECTED PRN PRN Reason: Diarrhea Last Admin: 02/06/19 06:30 Dose: 4 mg Magnesium Chloride (Mag-64) 64 mg PO BID [facility] Last Admin: 02/07/19 08:11 Dose: 64 mg Magnesium Oxide (Magnesium Oxide) 400 mg PO DAILY [facility] Last Admin: 02/07/19 08:12 Dose: 400 mg Megestrol Acetate (Megace 40 Mg/Ml Susp) 400 mg PO DAILY [facility] Last Admin: 02/07/19 08:18 Dose: 400 mg Metoprolol Tartrate (Lopressor) 25 mg PO Q12H [facility] Last Admin: 02/07/19 08:12 Dose: 25 mg Morphine Sulfate (Ms Contin) 30 mg PO Q12HR [facility] Last Admin: 02/07/19 08:07 Dose: 30 mg Multivitamins/Minerals (Thera M Plus) 1 tab PO DAILY [facility] Last Admin: 02/07/19 08:12 Dose: 1 tab Oxycodone HCl (Oxycodone) 10 mg PO Q4H PRN PRN Reason: Pain (moderate 4-6) Last Admin: 02/07/19 02:57 Dose: 10 mg Pantoprazole Sodium (Protonix) 40 mg PO DAILY [facility] Last Admin: 02/07/19 08:11 Dose: 40 mg Polyethylene Glycol (Miralax) 17 gm PO BEDTIME PRN PRN Reason: Constipation Potassium Chloride (Klor-Con M20) 20 meq PO DAILY [facility] Last Admin: 02/07/19 08:12 Dose: 20 meq Prochlorperazine Maleate (Compazine) 10 mg PO QID PRN PRN Reason: Nausea Last Admin: 02/06/19 12:10 Dose: 10 mg Senna/Docusate Sodium (Senna Plus) 2 tab PO BID PRN PRN Reason: Constipation Sertraline HCl (Zoloft) 75 mg PO BEDTIME [facility] Last Admin: 02/06/19 20:27 Dose: 75 mg Sodium Chloride (Saline Flush) 10 ml FLUSH ASDIRECTED PRN PRN Reason: Keep Vein Open Last Admin: 02/06/19 20:48 Dose: 10 ml Discontinued Medications Furosemide (Lasix) 20 mg IVPUSH DAILY [facility] Last Admin: 02/04/19 20:17 Dose: Not Given Furosemide (Lasix) 40 mg IVPUSH DAILY [facility] Last Admin: 02/05/19 18:48 Dose: Not Given Ceftriaxone Sodium 1 gm/ (Sodium Chloride) 50 mls @ 200 mls/hr IV Q24H [facility] Last Admin: 02/05/19 18:47 Dose: Not Given Azithromycin 500 mg/ Sodium (Chloride) 250 mls @ 250 mls/hr IV Q24H [facility] Last Admin: 02/05/19 18:48 Dose: Not Given Loperamide HCl (Imodium) Confirm Administered Dose 4 mg .ROUTE .STK-MED ONE Stop: 02/06/19 06:40 Last Admin: 02/06/19 07:19 Dose: Not Given Metoprolol Tartrate (Lopressor) 25 mg PO Q12H [facility] Last Admin: 02/04/19 20:03 Dose: Not Given Metoprolol Tartrate (Lopressor) 25 mg PO BID [facility] Last Admin: 02/05/19 18:49 Dose: Not Given Metoprolol Tartrate (Lopressor) 12.5 mg PO Q12H [facility] Last Admin: 02/06/19 08:04 Dose: 12.5 mg Metoprolol Tartrate (Lopressor) 12.5 mg PO ONETIME ONE Stop: 02/06/19 11:01 Last Admin: 02/06/19 11:25 Dose: Not Given Non-Formulary Medication (Multivitamin [Men's Multi-Vitamin]) 1 each PO DAILY [facility] Oxycodone HCl (Oxycodone) 10 mg PO Q4H PRN PRN Reason: Pain (moderate 4-6) Oxycodone HCl (Oxycodone) 5 mg PO Q4H PRN PRN Reason: Pain (moderate 4-6) - Exam Quality Assessment: Supplemental Oxygen General: Alert, Cooperative, No Acute Distress HEENT: Mucous Membr. Moist/[place] Neck: Supple, Trachea Midline, No JVD Lungs: Normal Respiratory Effort, Crackles (crackles to right base) Cardiovascular: Irregular Rhythm, Tachycardia GI/Abdominal Exam: Soft, No Distention Extremities: Normal Inspection, Normal Range of Motion, Non-Tender Skin: Warm, Dry Psy/Mental Status: Alert, Other (intermittent sleeping throughout the day) - Problem List & Annotations (1) CHF (congestive heart failure) SNOMED Code(s): 26087722 Code(s): I50.9 - HEART FAILURE, UNSPECIFIED Status: Acute Priority: High Current Visit: Yes Qualifiers: Heart failure type: unspecified Heart failure chronicity: acute on chronic Qualified Code(s): I50.9 - Heart failure, unspecified (2) Pneumonia SNOMED Code(s): 777947857 Code(s): J18.9 - PNEUMONIA, UNSPECIFIED ORGANISM Status: Acute Priority: High Current Visit: Yes Qualifiers: Pneumonia type: due to unspecified organism Laterality: bilateral Lung location: lower lobe of lung Qualified Code(s): J18.1 - Lobar pneumonia, unspecified organism (3) Atrial fibrillation SNOMED Code(s): 23102178 Code(s): I48.91 - UNSPECIFIED ATRIAL FIBRILLATION Status: Acute Priority : High Current Visit: Yes Qualifiers: Atrial fibrillation type: paroxysmal Qualified Code(s): I48.0 - Paroxysmal atrial fibrillation (4) Nausea SNOMED Code(s): 214584394 Code(s): R11.0 - NAUSEA Status: Acute Current Visit: Yes (5) Palliative care patient SNOMED Code(s): 201392576 Code(s): Z51.5 - ENCOUNTER FOR PALLIATIVE CARE Status: Chronic Priority: High Current Visit: No (6) Cancer associated pain SNOMED Code(s): 91874377718013 Code(s): G89.3 - NEOPLASM RELATED PAIN (ACUTE) (CHRONIC) Status: Chronic Current Visit: Yes - Problem List Review Problem List Initiated/Reviewed/Updated: Yes - My Orders Last 24 Hours: My Active Orders 02/06/19 09:00 cefTRIAXone [Rocephin] 1 gm Sodium Chloride 0.9% [Normal Saline] 50 ml IV 0900 02/06/19 09:43 CULTURE MRSA SURVEY [RM] Routine 02/06/19 13:00 Azithromycin [Zithromax] 500 mg Sodium Chloride 0.9% [Normal Saline] 250 ml IV 1300 02/06/19 20:00 Metoprolol Tartrate [Lopressor] 25 mg PO Q12H 02/07/19 06:00 UA W/MICROSCOPIC [URIN] Routine - Plan Plan:: CHF w Elevated BNP and hypotension: Good urine output last night of 850 Will change Lasix 40 mg IV daily to 20 mg IV bid Irregular heart rate 136 this am and Metoprolol was held last night r/t BP Will decrease Metoprolol dose to 12.5 mg PO bid for rate control Pneumonia: WBC has slight decrease. Continue with Azithromycin IV daily and rocephin IV daily. Monitor VS q 4 hour while awake Cancer pain: Continue to medicate with MS contin as ordered. 02-06-2019 Shortness of breath continues and nausea continues. Neck veins are slightly elevated. No peripheral edema. WBC is slowly decreasing. Will increase the Metoprolol today to slow the heart rate and hopefully the shortness of breath will decrease. Continue with supportive oxygen and he does use this continuous at home. Lasix 20 mg IV bid today. Continue to assess and medicate as needed for pain and nausea. Accurate I/O. 02-07-2019 Pt is increasingly sleepy, WBC improved, shortness of breath noted per pt and oxygen per n/C continues. Continue with Azithromycin and Rocephin IV for the total of 5 days. Repeat chest x-ray today and no change in x-ray noted. Cancer pain increasing today and increase in nausea. Will add Zofran prn and MS 2mg IV q 2-4 hour prn. Tachycardia continues periodically. Metoprolol was increased yesterday and Lasix 20 mg IV bid given. Discharge planning: Discussed discharge tomorrow for pt and pt states he is still very weak. discussion with and she is uncertain if she can provide cares at home for him. discussed increase in homecare services and grand daughter stated she could help some. to contact [place] for possible authorization for SWING bed or admit to LTCF. There is no local hospice care in this [facility]. Discussed decrease in health and current condition as the new normal for the pt and will expect decline with his cancer. Will review with family in am.
[2019-02-07] MEDS: Lactobacillus Acidophilus/Lactobacillus Sporogenes (Probiotic) Tab PO SCH (11:20)
[2019-02-07] MEDS ORDERED: Sodium Chloride 0.9% 250 ML IV SCH (12:00)
[2019-02-07] MEDS: Azithromycin 500 MG in Sodium Chloride 0.9% 250 ML IV SCH (14:51)
[2019-02-07] MEDS ORDERED: Ondansetron 4 MG/2 ML SDV IVPUSH PRN (16:04)
[2019-02-07] MEDS: Acetaminophen 500 MG Tab PO PRN (16:54)
--- NOTE | 2019-02-07 17:12 | CR ---
DATE OF SERVICE: 02/07/19 CLINICAL DATA: pneumonia, shortness of breath AP PORTABLE CHEST: Comparison is made to a prior exam dated 02/01/19. There is a persistent left pleural effusion, unchanged. There is persistent infiltrate and consolidation in the left lung base, unchanged. The remainder of the exam is unchanged from the prior study. [id number] [facility]
[2019-02-07] MEDS ORDERED: Morphine 2 MG/ML Syringe IVPUSH PRN (17:17)
[2019-02-07] MEDS: Sertraline 50 MG Tab PO SCH (21:00)
[2019-02-07] MEDS: Sodium Chloride 0.9% 10 ML Syringe FLUSH PRN (21:00)
[2019-02-08] MEDS: oxyCODONE 5 MG Tab PO PRN ×4 (02:55→22:24)
[2019-02-08] MEDS: Prochlorperazine 10 MG Tab PO PRN (06:06)
[2019-02-08] MEDS: Acetaminophen 500 MG Tab PO PRN (06:06)
[2019-02-08] MEDS: Cyanocobalamin (Vitamin B12) 1,000 MCG Tab PO SCH (08:12)
[2019-02-08] MEDS: Morphine 15 MG Tab.ER PO SCH ×2 (08:12→19:38)
[2019-02-08] MEDS: Apixaban 2.5 MG Tab PO SCH ×2 (08:13→19:38)
[2019-02-08] MEDS: Potassium Chloride 20 MEQ Tab.ER PO SCH (08:13)
[2019-02-08] MEDS: Pantoprazole 40 MG Tab.CR PO SCH (08:13)
[2019-02-08] MEDS: Metoprolol Tartrate 25 MG Tab PO SCH ×2 (08:14→19:39)
[2019-02-08] MEDS: Magnesium Oxide 400 MG Tab PO SCH (08:14)
[2019-02-08] MEDS: Magnesium Chloride 64 MG Tab.ER PO SCH ×2 (08:14→19:38)
[2019-02-08] MEDS: Multivitamins with Iron/Calcium/Folic Acid/Minerals Tab PO SCH (08:15)
[2019-02-08] MEDS: Furosemide 20 MG/2 ML VIAL IVPUSH SCH (08:15)
[2019-02-08] MEDS: cefTRIAXone 1 GM in Sodium Chloride 0.9% 50 ML IV SCH (08:19)
[2019-02-08] MEDS: Megestrol Susp 40 MG/ML ML (240 ML Bottle) PO SCH (08:19)
[2019-02-08] MEDS: Isosorbide Mononitrate 30 MG Tab.ER PO SCH (09:28)
[2019-02-08] MEDS: Lactobacillus Acidophilus/Lactobacillus Sporogenes (Probiotic) Tab PO SCH (12:08)
[2019-02-08] MEDS: Azithromycin 500 MG in Sodium Chloride 0.9% 250 ML IV SCH (13:32)
[2019-02-08] MEDS: Furosemide 20 MG Tab PO SCH (16:20)
[2019-02-08] MEDS: Sertraline 50 MG Tab PO SCH (19:37)
[2019-02-09] MEDS: oxyCODONE 5 MG Tab PO PRN ×2 (04:16→10:18)
[2019-02-09] MEDS: Apixaban 2.5 MG Tab PO SCH (07:46)
[2019-02-09] MEDS: Isosorbide Mononitrate 30 MG Tab.ER PO SCH (07:46)
[2019-02-09] MEDS: Magnesium Chloride 64 MG Tab.ER PO SCH (07:48)
[2019-02-09] MEDS: Pantoprazole 40 MG Tab.CR PO SCH (07:49)
[2019-02-09] MEDS: Morphine 15 MG Tab.ER PO SCH (07:49)
[2019-02-09] MEDS: Cyanocobalamin (Vitamin B12) 1,000 MCG Tab PO SCH (07:49)
[2019-02-09] MEDS: Megestrol Susp 40 MG/ML ML (240 ML Bottle) PO SCH (07:50)
[2019-02-09] MEDS: Furosemide 20 MG Tab PO SCH (07:51)
[2019-02-09] MEDS: Potassium Chloride 20 MEQ Tab.ER PO SCH (07:51)
[2019-02-09] MEDS: Magnesium Oxide 400 MG Tab PO SCH (07:51)
[2019-02-09] MEDS: Multivitamins with Iron/Calcium/Folic Acid/Minerals Tab PO SCH (07:51)
[2019-02-09] MEDS: Metoprolol Tartrate 25 MG Tab PO SCH (07:52)
[2019-02-09] MEDS ORDERED: Azithromycin 250 MG Tab PO SCH (08:00)
--- NOTE | 2019-02-09 09:20 | PCM.PN ---
- General Info Date of Service: 02/08/19 Admission Dx/Problem (Free Text): acute CHF w elevated BNP 14,000 and pneumonia Subjective Update: States he is feeling short of breath when awake, weak and tired with abdominal pain while awake. and pt states they aren't ready for discharge today. Family is getting things ready at home and feel tomorrow would be a better day to go home. Functional Status: Reports: Pain Controlled, Tolerating Diet, Urinating - Review of Systems General: Reports: Weakness. Denies: Fever, Chills HEENT: Reports: No Symptoms Pulmonary: Reports: Shortness of Breath. Denies: Cough, Wheezing Cardiovascular: Reports: Dyspnea on Exertion, Lightheadedness. Denies: Edema Gastrointestinal: Reports: Abdominal Pain, Decreased Appetite, Nausea. Denies: Vomiting Genitourinary: Denies: Dysuria, Frequency, Burning, Hematuria Skin: Reports: No Symptoms Neurological: Reports: No Symptoms Psychiatric: Reports: No Symptoms - Patient Data Vitals - Most Recent: Last Vital Signs Temp 98.6 F 02/09/19 08:00 Pulse 68 02/09/19 08:00 Resp 16 02/09/19 08:00 BP 118/67 02/09/19 08:00 Pulse Ox 97 02/09/19 08:00 Weight - Most Recent: 119 lb I&O - Last 24 Hours: Intake & Output 02/08/19 02/09/19 02/09/19 22:59 06:59 14:59 Intake Total 1400 300 Output Total 500 Balance 900 300 Lab Results Last 24 Hours: Laboratory Results - last 24 hr 02/08/19 Range/Units 19:49 Urine Color Yellow Urine Appearance Clear (CLEAR) Urine pH 5.0 (5.0-8.0) Ur Specific [place] 1.015 (1.003-1.030) Urine Protein Negative (NEGATIVE) mg/dL Urine Glucose (UA) Negative (NEGATIVE) mg/dL Urine Ketones Negative (NEGATIVE) mg/dL Urine Occult Blood Negative (NEGATIVE) Urine Nitrite Negative (NEGATIVE) Urine Bilirubin Negative (NEGATIVE) Urine Urobilinogen 0.2 (0.2-1.0) E.U./dL Ur Leukocyte Esterase Negative (NEGATIVE) Urine RBC Not seen /HPF Urine WBC 0-5 H /HPF Ur Squamous Epith Cells Few /HPF Hyaline Casts Moderate /HPF Med Orders - Current: Current Medications Acetaminophen (Tylenol Extra Strength) 500 mg PO Q6H PRN PRN Reason: Fever Last Admin: 02/08/19 06:06 Dose: 500 mg Apixaban (Eliquis) 2.5 mg PO BID [facility] Last Admin: 02/09/19 07:46 Dose: 2.5 mg Azithromycin (Zithromax) 500 mg PO DAILY [facility] Last Admin: 02/09/19 07:50 Dose: 500 mg Cyanocobalamin (Vitamin B12) 1,000 mcg PO DAILY [facility] Last Admin: 02/09/19 07:49 Dose: 1,000 mcg Dicyclomine HCl (Bentyl) 10 mg PO ASDIRECTED PRN PRN Reason: Pain Furosemide (Lasix) 20 mg PO BIDDIURETIC [facility] Last Admin: 02/09/19 07:51 Dose: 20 mg Isosorbide Mononitrate (Imdur) 15 mg PO DAILY [facility] Last Admin: 02/09/19 07:46 Dose: 15 mg Lactobacillus Acidophilus (Acidolphilus Extra Strength) 1 tab PO DAILY@1200 [facility] Last Admin: 02/08/19 12:08 Dose: 1 tab Loperamide HCl (Imodium) 4 mg PO ASDIRECTED PRN PRN Reason: Diarrhea Last Admin: 02/06/19 06:30 Dose: 4 mg Magnesium Chloride (Mag-64) 64 mg PO BID [facility] Last Admin: 02/09/19 07:48 Dose: 64 mg Magnesium Oxide (Magnesium Oxide) 400 mg PO DAILY [facility] Last Admin: 02/09/19 07:51 Dose: 400 mg Megestrol Acetate (Megace 40 Mg/Ml Susp) 400 mg PO DAILY [facility] Last Admin: 02/09/19 07:50 Dose: 400 mg Metoprolol Tartrate (Lopressor) 25 mg PO Q12H [facility] Last Admin: 02/09/19 07:52 Dose: 25 mg Morphine Sulfate (Ms Contin) 30 mg PO Q12HR [facility] Last Admin: 02/09/19 07:49 Dose: 30 mg Morphine Sulfate (Morphine) 2 mg IVPUSH Q4H PRN PRN Reason: Pain Multivitamins/Minerals (Thera M Plus) 1 tab PO DAILY [facility] Last Admin: 02/09/19 07:51 Dose: 1 tab Ondansetron HCl (Zofran) 4 mg IVPUSH Q6H PRN PRN Reason: Nausea/Vomiting Last Admin: 02/07/19 16:27 Dose: 4 mg Oxycodone HCl (Oxycodone) 10 mg PO Q4H PRN PRN Reason: Pain (moderate 4-6) Last Admin: 02/09/19 04:16 Dose: 10 mg Pantoprazole Sodium (Protonix) 40 mg PO DAILY [facility] Last Admin: 02/09/19 07:49 Dose: 40 mg Polyethylene Glycol (Miralax) 17 gm PO BEDTIME PRN PRN Reason: Constipation Potassium Chloride (Klor-Con M20) 20 meq PO DAILY [facility] Last Admin: 02/09/19 07:51 Dose: 20 meq Prochlorperazine Maleate (Compazine) 10 mg PO QID PRN PRN Reason: Nausea Last Admin: 02/08/19 06:06 Dose: 10 mg Senna/Docusate Sodium (Senna Plus) 2 tab PO BID PRN PRN Reason: Constipation Sertraline HCl (Zoloft) 75 mg PO BEDTIME [facility] Last Admin: 02/08/19 19:37 Dose: 75 mg Sodium Chloride (Saline Flush) 10 ml FLUSH ASDIRECTED PRN PRN Reason: Keep Vein Open Last Admin: 02/07/19 21:00 Dose: 10 ml Discontinued Medications Furosemide (Lasix) 20 mg IVPUSH DAILY [facility] Last Admin: 02/04/19 20:17 Dose: Not Given Furosemide (Lasix) 40 mg IVPUSH DAILY [facility] Last Admin: 02/05/19 18:48 Dose: Not Given Furosemide (Lasix) 20 mg IVPUSH BIDDIURETIC [facility] Last Admin: 02/08/19 08:15 Dose: 20 mg Ceftriaxone Sodium 1 gm/ (Sodium Chloride) 50 mls @ 200 mls/hr IV Q24H [facility] Last Admin: 02/05/19 18:47 Dose: Not Given Azithromycin 500 mg/ Sodium (Chloride) 250 mls @ 250 mls/hr IV Q24H [facility] Last Admin: 02/05/19 18:48 Dose: Not Given Azithromycin 500 mg/ Sodium (Chloride) 250 mls @ 250 mls/hr IV 1300 [facility] Last Admin: 02/08/19 13:32 Dose: 250 mls/hr Ceftriaxone Sodium 1 gm/ (Sodium Chloride) 50 mls @ 200 mls/hr IV 0900 [facility] Last Admin: 02/08/19 08:19 Dose: 200 mls/hr Sodium Chloride (Normal Saline) 250 mls @ 125 mls/hr IV ASDIRECTED [facility] Last Admin: 02/07/19 12:30 Dose: 125 mls/hr Loperamide HCl (Imodium) Confirm Administered Dose 4 mg .ROUTE .STK-MED ONE Stop: 02/06/19 06:40 Last Admin: 02/06/19 07:19 Dose: Not Given Metoprolol Tartrate (Lopressor) 25 mg PO Q12H [facility] Last Admin: 02/04/19 20:03 Dose: Not Given Metoprolol Tartrate (Lopressor) 25 mg PO BID [facility] Last Admin: 02/05/19 18:49 Dose: Not Given Metoprolol Tartrate (Lopressor) 12.5 mg PO Q12H [facility] Last Admin: 02/06/19 08:04 Dose: 12.5 mg Metoprolol Tartrate (Lopressor) 12.5 mg PO ONETIME ONE Stop: 02/06/19 11:01 Last Admin: 02/06/19 11:25 Dose: Not Given Non-Formulary Medication (Multivitamin [Men's Multi-Vitamin]) 1 each PO DAILY [facility] Oxycodone HCl (Oxycodone) 10 mg PO Q4H PRN PRN Reason: Pain (moderate 4-6) Oxycodone HCl (Oxycodone) 5 mg PO Q4H PRN PRN Reason: Pain (moderate 4-6) - Exam Quality Assessment: Supplemental Oxygen. No: Urine Catheter, Skin Breakdown General: Alert, Oriented, Cooperative, No Acute Distress HEENT: Pupils Reactive, Mucous Membr. Moist/[place] Neck: Supple, Trachea Midline, No JVD Lungs: Normal Respiratory Effort, Decreased Breath Sounds (diminished to left lower lobe, clear to right lobes) Cardiovascular: Regular Rhythm, Tachycardia GI/Abdominal Exam: Soft, Non-Tender, No Distention. No: Rebound Extremities: Normal Range of Motion, No Pedal Edema, Normal Capillary Refill Skin: Warm, Dry Neurological: No New Focal Deficit Psy/Mental Status: Alert, Other (flat affect and depressed mood today.) - Problem List & Annotations (1) CHF (congestive heart failure) SNOMED Code(s): 71858995 Code(s): I50.9 - HEART FAILURE, UNSPECIFIED Status: Acute Priority: High Current Visit: Yes Qualifiers: Heart failure type: unspecified Heart failure chronicity: acute on chronic Qualified Code(s): I50.9 - Heart failure, unspecified (2) Pneumonia SNOMED Code(s): 435205191 Code(s): J18.9 - PNEUMONIA, UNSPECIFIED ORGANISM Status: Acute Priority: High Current Visit: Yes Qualifiers: Pneumonia type: due to unspecified organism Laterality: bilateral Lung location: lower lobe of lung Qualified Code(s): J18.1 - Lobar pneumonia, unspecified organism (3) Atrial fibrillation SNOMED Code(s): 14760619 Code(s): I48.91 - UNSPECIFIED ATRIAL FIBRILLATION Status: Acute Priority : High Current Visit: Yes Qualifiers: Atrial fibrillation type: paroxysmal Qualified Code(s): I48.0 - Paroxysmal atrial fibrillation (4) Nausea SNOMED Code(s): 759453570 Code(s): R11.0 - NAUSEA Status: Acute Current Visit: Yes (5) Palliative care patient SNOMED Code(s): 670700659 Code(s): Z51.5 - ENCOUNTER FOR PALLIATIVE CARE Status: Chronic Priority: High Current Visit: No (6) Cancer associated pain SNOMED Code(s): 34490985460406 Code(s): G89.3 - NEOPLASM RELATED PAIN (ACUTE) (CHRONIC) Status: Chronic Current Visit: Yes - Problem List Review Problem List Initiated/Reviewed/Updated: Yes - My Orders Last 24 Hours: My Active Orders 02/08/19 16:00 Furosemide [Lasix] 20 mg PO BIDDIURETIC 02/09/19 08:00 Azithromycin [Zithromax] 500 mg PO DAILY - Plan Plan:: CHF w Elevated BNP and hypotension: Good urine output last night of 850 Will change Lasix 40 mg IV daily to 20 mg IV bid Irregular heart rate 136 this am and Metoprolol was held last night r/t BP Will decrease Metoprolol dose to 12.5 mg PO bid for rate control Pneumonia: WBC has slight decrease. Continue with Azithromycin IV daily and rocephin IV daily. Monitor VS q 4 hour while awake Cancer pain: Continue to medicate with MS contin as ordered. 02-06-2019 Shortness of breath continues and nausea continues. Neck veins are slightly elevated. No peripheral edema. WBC is slowly decreasing. Will increase the Metoprolol today to slow the heart rate and hopefully the shortness of breath will decrease. Continue with supportive oxygen and he does use this continuous at home. Lasix 20 mg IV bid today. Continue to assess and medicate as needed for pain and nausea. Accurate I/O. 02-07-2019 Pt is increasingly sleepy, WBC improved, shortness of breath noted per pt and oxygen per n/C continues. Continue with Azithromycin and Rocephin IV for the total of 5 days. Repeat chest x-ray today and no change in x-ray noted. Cancer pain increasing today and increase in nausea. Will add Zofran prn and MS 2mg IV q 2-4 hour prn. Tachycardia continues periodically. Metoprolol was increased yesterday and Lasix 20 mg IV bid given. Discharge planning: Discussed discharge tomorrow for pt and pt states he is still very weak. discussion with and she is uncertain if she can provide cares at home for him. discussed increase in homecare services and grand daughter stated she could help some. to contact [place] for possible authorization for SW[facility] bed or admit to [facility]TC[facility]. There is no local hospice care in [facility]. Discussed decrease in health and current condition as the new normal for the pt and will expect decline with his cancer. Will review with family in am. 02-08-2019 WBC has returned to normal value 10.4, hgb 10.5 today. He is taking Protonix to cover for GERD and prevent GI distress. BNP improved to 6061 today. Pt is feeling weak today, but other signs and symptoms are improving. Reviewed chest x-ray and continued consolidation to left lower lung. At this time I am uncertain of etiology, may be pneumonia, CHF, or cancer or combination of all for the pt. Will continue with Lasix bid and Antibiotic. Will change to oral medications today, and see how pt tolerates this. He continues with abdominal pain and I have encouraged him to request pain medication as needed and this may assist with his decrease in appetite. Zofran has been added to the compazine for the nausea. Pt does have a scheduled visit with oncology next week and a repeat Pet scan. Discussed discharge today and family isn't ready for this. It would be reasonable for one more day to build up strength some with sitting in chair or on edge of bed. Pt is ambulating to the bathroom and has tolerated this well. states [place] has sn[place] care facility in other communities, but not locally. U/R team, Maverick AMES and Elise LILLY discussed options with family and this provider and state Swing bed program wouldn't be an option at this time. Will plan for possible discharge tomorrow.
[2019-02-09] MEDS: Acetaminophen 500 MG Tab PO PRN (10:17)
--- NOTE | 2019-02-09 10:52 | PCM.DCSUM1 ---
Discharge Summary - Hospital Course HPI Initial Comments: 73 yo male admit 02-04-2019 with pneumonia and elevated BNP/CHF. Chest x-ray repeat with left pleural effusion and left infiltrate/consolidation. At this time I am uncertain if this is related to pneumonia, CHF or possible infiltrate of his cancer. Pt is afebrile. WBC has returned to normal. VSS and BNP has improved. Will continue with Azithromycin for the weekend at home and then Rx for Augmentin was filled 01-31-19 at the pharmacy and pt can start that at home after the Azithromycin is complete. Lasix has been increased to 20 mg PO bid and Metoprolol was increased to 25 mg PO bid 02-01-2019 in an ER visit and he was started on Eliquis bid for atrial fib w RVR. Pt continues with intermittent abdominal pain, most likely from the cancer. He does have a follow -up visit with oncology next week and a repeat Pet scan. He has been ambulatory short distance with SBA and walker. He is voiding well and the hawkins catheter has been d'cd and U/A repeated with no UTI noted. Discussed discharge today and improvement with s/s of pneumonia and BNP improving. Pt states he would like to stay another couple days. At this time, pt status is stable and will discharge to home. is here and will support pt as needed. Grand-daughter is at their home and is supportive and willing to assist. Pt does have a homecare nurse that is following him and will assist with medication on discharge. If pt is too weak to tolerate car ride to [place] next week, RTC for follow-up locally. If pt is strong enough, recommend F/U with oncology. Diagnosis: Stroke: No - Discharge Data Discharge Date: 02/09/19 Discharge Disposition: Home, Self-Care 01 Condition: Good - Referral to Home Health Date of Face to Face Encounter: 02/09/19 Reason for Homebound Status: pneumonia, CHF and end stage cancer Primary Care Physician: PCP None Skilled Need: Skilled observation and assessment of pneumonia, CHF, atrial fibrillation, pain, and nausea. Monitor for any increase in signs of anemia. Repeat labs next week for CBC, BMP, BNP. - Discharge Diagnosis/Problem(s) (1) CHF (congestive heart failure) SNOMED Code(s): 69838150 ICD Code: I50.9 - HEART FAILURE, UNSPECIFIED Status: Acute Priority: High Current Visit: Yes Qualifiers: Heart failure type: unspecified Heart failure chronicity: acute on chronic Qualified Code(s): I50.9 - Heart failure, unspecified (2) Pneumonia SNOMED Code(s): 060239470 ICD Code: J18.9 - PNEUMONIA, UNSPECIFIED ORGANISM Status: Acute Priority : High Current Visit: Yes Qualifiers: Pneumonia type: due to unspecified organism Laterality: bilateral Lung location: lower lobe of lung Qualified Code(s): J18.1 - Lobar pneumonia, unspecified organism (3) Atrial fibrillation SNOMED Code(s): 71791525 ICD Code: I48.91 - UNSPECIFIED ATRIAL FIBRILLATION Status: Acute Priority : High Current Visit: Yes Qualifiers: Atrial fibrillation type: paroxysmal Qualified Code(s): I48.0 - Paroxysmal atrial fibrillation (4) Nausea SNOMED Code(s): 711266577 ICD Code: R11.0 - NAUSEA Status: Acute Current Visit: Yes (5) Palliative care patient SNOMED Code(s): 766047068 ICD Code: Z51.5 - ENCOUNTER FOR PALLIATIVE CARE Status: Chronic Priority : High Current Visit: No (6) Cancer associated pain SNOMED Code(s): 45152504754855 ICD Code: G89.3 - NEOPLASM RELATED PAIN (ACUTE) (CHRONIC) Status: Chronic Current Visit: Yes - Discharge Plan *PRESCRIPTION DRUG MONITORING PROGRAM REVIEWED*: Not Applicable *COPY OF PRESCRIPTION DRUG MONITORING REPORT IN PATIENT TAYLOR: Not Applicable Home Medications: Home Meds Multivitamin [Men's Multi-Vitamin] 1 each PO DAILY 05/17/17 [History] Sennosides/Docusate Sodium [Sennosides-Docusate Sodium] 2 each PO BID PRN [History] oxyCODONE 10 mg PO Q4H PRN 11/18/17 [History] Dicyclomine HCl [Bentyl] 10 mg PO ASDIRECTED 06/25/18 [History] Megestrol Acetate 10 ml PO DAILY 06/25/18 [History] Morphine [MS Contin] 15 mg PO Q12HR 06/25/18 [History] Prochlorperazine Maleate [Compazine] 10 mg PO QID PRN 06/25/18 [History] Isosorbide Mononitrate [Imdur] 15 mg PO DAILY tab.er 06/26/18 [Rx] Acetaminophen [Tylenol Extra Strength] 500 mg PO Q6H PRN tablet 07/02/18 [Rx] Acidophilus/Lactobac Spor [Acidolphilus X-Strength] 1 tab PO DAILY@1200 tablet 07/02/18 [Rx] Apixaban [Eliquis] 2.5 mg PO BID tablet 02/09/19 [Rx] Cyanocobalamin (Vitamin B12) [Vitamin B12] 1,000 mcg PO DAILY tablet 02/09/19 [ Rx] Furosemide [Lasix] 20 mg PO BIDDIURETIC tablet 02/09/19 [Rx] Magnesium Chloride [Mag-64] 64 mg PO BID tab.er 02/09/19 [Rx] Magnesium Oxide 400 mg PO DAILY tablet 02/09/19 [Rx] Metoprolol Tartrate [Lopressor] 25 mg PO Q12H tablet 02/09/19 [Rx] Morphine [MS Contin] 30 mg PO Q12HR tab.er 02/09/19 [Rx] Polyethylene Glycol 3350 [MiraLAX] 17 gm PO BEDTIME PRN packet 02/09/19 [Rx] Potassium Chloride [Klor-Con M20] 20 meq PO DAILY tab.er 02/09/19 [Rx] Sertraline [Zoloft] 75 mg PO BEDTIME tablet 02/09/19 [Rx] Oxygen Therapy Mode: Nasal Cannula Forms: ED Department Discharge Referrals: PCP,None [Primary Care Provider] - - Discharge Summary/Plan Comment DC Time >30 min.: No (Discharge with Azithromycin and Furosemide RX, continue medications at home) Discharge Summary/Plan Comment: Patient home medications weren't reconciled on admit. Pt does have several medications at home, that he is taking and are showing as new medications. His oxycodone is 10-20 mg PO q 4-6 hour prn, MS contin is 30 mg bid, zofran 8mg PO tid prn, Carafate (1gm/10mL) 10 ml qid, Chelo 180 mg daily, Wellbutrin SR 150 mg q 12hr , Miralax daily, potassium 20 meq daily, Lactulose (10gm/15 ml) 20gm bid, Lidoderm 5% patch daily on 12 hour and off 12 hour, Omeprazole 40 mg PO daily, Isosorbide SR (IMdur) was decreased to 15 mg daily, Metoprolol is 25 mg PO bid for heart rate control Eliquis 2.5 mg PO bid Sertraline 100 mg bid and crestor 20 mg PO daily. He does have magnesium, vitamins, inhaler, lomotil, nebulizer Pericolace, nitro at home, as well. He should continue on the Azithromycin through the weekend and continue with the Lasix 20 mg PO bid. Discussed discharge today and improvement with s/s of pneumonia and BNP improving. Pt states he would like to stay another couple days. At this time, pt status is stable and will discharge to home. is here and will support pt as needed. Grand-daughter is at their home and is supportive and willing to assist. Pt does have a homecare nurse that is following him and will assist with medication on discharge. If pt is too weak to tolerate car ride to [place] next week, RTC for follow-up locally. If pt is strong enough, recommend F/U with oncology. - General Info Date of Service: 02/09/19 Admission Dx/Problem (Free Text: acute CHF w elevated BNP 14,000 and pneumonia Subjective Update: States he is feeling short of breath when awake, weak and tired with abdominal pain while awake. He is ambulating short distance and starting to have some success with his cough. Functional Status: Reports: Pain Controlled, Tolerating Diet, Ambulating, Urinating - Review of Systems General: Reports: Weakness HEENT: Reports: No Symptoms Pulmonary: Reports: Shortness of Breath, Cough. Denies: Sputum, Wheezing Cardiovascular: Reports: Dyspnea on Exertion. Denies: Chest Pain, Palpitations , Edema Gastrointestinal: Reports: Abdominal Pain (stable with oxycodone and MS contin) , Decreased Appetite (continues with Megace and small, soft, frequent meals and snacks as tolerated.), Nausea (controlled with compazine or Zofran). Denies: Constipation, Vomiting Genitourinary: Reports: No Symptoms Musculoskeletal: Reports: No Symptoms Skin: Reports: No Symptoms Neurological: Reports: No Symptoms Psychiatric: Reports: Depression - Patient Data Vitals - Most Recent: Last Vital Signs Temp 98.6 F 02/09/19 08:00 Pulse 68 02/09/19 08:00 Resp 16 02/09/19 08:00 BP 118/67 02/09/19 08:00 Pulse Ox 97 02/09/19 08:00 Weight - Most Recent: 119 lb I&O - Last 24 hours: Intake & Output 02/08/19 02/09/19 02/09/19 22:59 06:59 14:59 Intake Total 1400 300 Output Total 500 Balance 900 300 Lab Results - Last 24 hrs: Laboratory Results - last 24 hr 02/08/19 Range/Units 19:49 Urine Color Yellow Urine Appearance Clear (CLEAR) Urine pH 5.0 (5.0-8.0) Ur Specific [place] 1.015 (1.003-1.030) Urine Protein Negative (NEGATIVE) mg/dL Urine Glucose (UA) Negative (NEGATIVE) mg/dL Urine Ketones Negative (NEGATIVE) mg/dL Urine Occult Blood Negative (NEGATIVE) Urine Nitrite Negative (NEGATIVE) Urine Bilirubin Negative (NEGATIVE) Urine Urobilinogen 0.2 (0.2-1.0) E.U./dL Ur Leukocyte Esterase Negative (NEGATIVE) Urine RBC Not seen /HPF Urine WBC 0-5 H /HPF Ur Squamous Epith Cells Few /HPF Hyaline Casts Moderate /HPF Med Orders - Current: Current Medications Acetaminophen (Tylenol Extra Strength) 500 mg PO Q6H PRN PRN Reason: Fever Last Admin: 02/09/19 10:17 Dose: 500 mg Apixaban (Eliquis) 2.5 mg PO BID [facility] Last Admin: 02/09/19 07:46 Dose: 2.5 mg Azithromycin (Zithromax) 500 mg PO DAILY [facility] Last Admin: 02/09/19 07:50 Dose: 500 mg Cyanocobalamin (Vitamin B12) 1,000 mcg PO DAILY [facility] Last Admin: 02/09/19 07:49 Dose: 1,000 mcg Dicyclomine HCl (Bentyl) 10 mg PO ASDIRECTED PRN PRN Reason: Pain Furosemide (Lasix) 20 mg PO BIDDIURETIC [facility] Last Admin: 02/09/19 07:51 Dose: 20 mg Isosorbide Mononitrate (Imdur) 15 mg PO DAILY [facility] Last Admin: 02/09/19 07:46 Dose: 15 mg Lactobacillus Acidophilus (Acidolphilus Extra Strength) 1 tab PO DAILY@1200 [facility] Last Admin: 02/08/19 12:08 Dose: 1 tab Loperamide HCl (Imodium) 4 mg PO ASDIRECTED PRN PRN Reason: Diarrhea Last Admin: 02/06/19 06:30 Dose: 4 mg Magnesium Chloride (Mag-64) 64 mg PO BID [facility] Last Admin: 02/09/19 07:48 Dose: 64 mg Magnesium Oxide (Magnesium Oxide) 400 mg PO DAILY [facility] Last Admin: 02/09/19 07:51 Dose: 400 mg Megestrol Acetate (Megace 40 Mg/Ml Susp) 400 mg PO DAILY [facility] Last Admin: 02/09/19 07:50 Dose: 400 mg Metoprolol Tartrate (Lopressor) 25 mg PO Q12H [facility] Last Admin: 02/09/19 07:52 Dose: 25 mg Morphine Sulfate (Ms Contin) 30 mg PO Q12HR [facility] Last Admin: 02/09/19 07:49 Dose: 30 mg Morphine Sulfate (Morphine) 2 mg IVPUSH Q4H PRN PRN Reason: Pain Multivitamins/Minerals (Thera M Plus) 1 tab PO DAILY [facility] Last Admin: 02/09/19 07:51 Dose: 1 tab Ondansetron HCl (Zofran) 4 mg IVPUSH Q6H PRN PRN Reason: Nausea/Vomiting Last Admin: 02/07/19 16:27 Dose: 4 mg Oxycodone HCl (Oxycodone) 10 mg PO Q4H PRN PRN Reason: Pain (moderate 4-6) Last Admin: 02/09/19 10:18 Dose: 10 mg Pantoprazole Sodium (Protonix) 40 mg PO DAILY [facility] Last Admin: 02/09/19 07:49 Dose: 40 mg Polyethylene Glycol (Miralax) 17 gm PO BEDTIME PRN PRN Reason: Constipation Potassium Chloride (Klor-Con M20) 20 meq PO DAILY [facility] Last Admin: 02/09/19 07:51 Dose: 20 meq Prochlorperazine Maleate (Compazine) 10 mg PO QID PRN PRN Reason: Nausea Last Admin: 02/08/19 06:06 Dose: 10 mg Senna/Docusate Sodium (Senna Plus) 2 tab PO BID PRN PRN Reason: Constipation Sertraline HCl (Zoloft) 75 mg PO BEDTIME [facility] Last Admin: 02/08/19 19:37 Dose: 75 mg Sodium Chloride (Saline Flush) 10 ml FLUSH ASDIRECTED PRN PRN Reason: Keep Vein Open Last Admin: 02/07/19 21:00 Dose: 10 ml Discontinued Medications Furosemide (Lasix) 20 mg IVPUSH DAILY [facility] Last Admin: 02/04/19 20:17 Dose: Not Given Furosemide (Lasix) 40 mg IVPUSH DAILY [facility] Last Admin: 02/05/19 18:48 Dose: Not Given Furosemide (Lasix) 20 mg IVPUSH BIDDIURETIC [facility] Last Admin: 02/08/19 08:15 Dose: 20 mg Ceftriaxone Sodium 1 gm/ (Sodium Chloride) 50 mls @ 200 mls/hr IV Q24H [facility] Last Admin: 02/05/19 18:47 Dose: Not Given Azithromycin 500 mg/ Sodium (Chloride) 250 mls @ 250 mls/hr IV Q24H [facility] Last Admin: 02/05/19 18:48 Dose: Not Given Azithromycin 500 mg/ Sodium (Chloride) 250 mls @ 250 mls/hr IV 1300 [facility] Last Admin: 02/08/19 13:32 Dose: 250 mls/hr Ceftriaxone Sodium 1 gm/ (Sodium Chloride) 50 mls @ 200 mls/hr IV 0900 [facility] Last Admin: 02/08/19 08:19 Dose: 200 mls/hr Sodium Chloride (Normal Saline) 250 mls @ 125 mls/hr IV ASDIRECTED [facility] Last Admin: 02/07/19 12:30 Dose: 125 mls/hr Loperamide HCl (Imodium) Confirm Administered Dose 4 mg .ROUTE .STK-MED ONE Stop: 02/06/19 06:40 Last Admin: 02/06/19 07:19 Dose: Not Given Metoprolol Tartrate (Lopressor) 25 mg PO Q12H [facility] Last Admin: 02/04/19 20:03 Dose: Not Given Metoprolol Tartrate (Lopressor) 25 mg PO BID [facility] Last Admin: 02/05/19 18:49 Dose: Not Given Metoprolol Tartrate (Lopressor) 12.5 mg PO Q12H [facility] Last Admin: 02/06/19 08:04 Dose: 12.5 mg Metoprolol Tartrate (Lopressor) 12.5 mg PO ONETIME ONE Stop: 02/06/19 11:01 Last Admin: 02/06/19 11:25 Dose: Not Given Non-Formulary Medication (Multivitamin [Men's Multi-Vitamin]) 1 each PO DAILY [facility] Oxycodone HCl (Oxycodone) 10 mg PO Q4H PRN PRN Reason: Pain (moderate 4-6) Oxycodone HCl (Oxycodone) 5 mg PO Q4H PRN PRN Reason: Pain (moderate 4-6) - Exam Quality Assessment: Reports: Supplemental Oxygen. Denies: Urine Catheter, Skin Breakdown General: Reports: Alert, Oriented, Cooperative HEENT: Reports: Pupils Equal, Mucous Membr. Moist/[place] Neck: Reports: Supple, Trachea Midline Lungs: Reports: Normal Respiratory Effort, Decreased Breath Sounds (to left base ) Cardiovascular: Reports: Regular Rate GI/Abdominal Exam: Normal Bowel Sounds, Soft, No Distention Back Exam: Reports: Normal Inspection Extremities: Normal Inspection, Normal Range of Motion, Non-Tender, No Pedal Edema, Normal Capillary Refill Skin: Reports: Warm, Dry, Intact (Recommend to change position every 2-4 hour to prevent any skin breakdown.) Neurological: Reports: No New Focal Deficit Psy/Mental Status: Reports: Alert, Normal Affect, Normal Mood
[2019-02-09 10:58] VITALS: BP 118/67; PULSE 68
[2019-02-09] MEDS ORDERED: Furosemide 20 MG Tab ONE (12:00)
[2019-02-09] MEDS ORDERED: Azithromycin 500 MG Tab ONE (12:00)
== END 2019-02-09 12:05 | disposition home or self-care (01) | DRG 291 ==
LOC: LB.ED 12:37 → LB.MS 17:40
PROVIDERS: ADMIT Nurse Practitioner Family; ATTEND Nurse Practitioner Family
DX: I13.0 Hypertensive heart and chronic kidney disease with heart failure and stage 1 through stage 4 chronic kidney disease, or unspecified chronic kidney disease (principal); I48.91 Unspecified atrial fibrillation; J18.9 Pneumonia, unspecified organism; J91.0 Malignant pleural effusion; I50.9 Heart failure, unspecified; Z51.5 Encounter for palliative care; G89.3 Neoplasm related pain (acute) (chronic); I48.0 Paroxysmal atrial fibrillation; H54.7 Unspecified visual loss; I25.2 Old myocardial infarction; J44.9 Chronic obstructive pulmonary disease, unspecified; N18.9 Chronic kidney disease, unspecified; K52.9 Noninfective gastroenteritis and colitis, unspecified; M54.9 Dorsalgia, unspecified; M19.90 Unspecified osteoarthritis, unspecified site; F41.9 Anxiety disorder, unspecified; F32.9 Major depressive disorder, single episode, unspecified; F43.10 Post-traumatic stress disorder, unspecified; R00.0 Tachycardia, unspecified; Z79.899 Other long term (current) drug therapy; Z79.01 Long term (current) use of anticoagulants; Z88.8 Allergy status to other drugs, medicaments and biological substances; Z91.041 Radiographic dye allergy status; Z95.1 Presence of aortocoronary bypass graft; Z95.5 Presence of coronary angioplasty implant and graft; Z87.440 Personal history of urinary (tract) infections; Z86.010 Personal history of colon polyps; Z85.46 Personal history of malignant neoplasm of prostate; Z85.01 Personal history of malignant neoplasm of esophagus; Z85.118 Personal history of other malignant neoplasm of bronchus and lung; Z92.21 Personal history of antineoplastic chemotherapy
CPT/HCPCS: 36415; 51702; 51798; 71045; 80048; 81001; 83605; 83880; 85025; 93005; 99285-25; A9270-GY; J0456; J0696; J1940; J2405; J7050; Q0164

== ENCOUNTER 2019-02-16 23:01 | Emergency (ER) | payer OTHER, MEDICARE ==
[2019-02-17 00:20] VITALS: BP 120/91; PULSE 66
--- NOTE | 2019-03-09 10:13 | ER ---
HISTORY OF PRESENT ILLNESS: A 73-year-old male who comes in by ambulance with his . The patient was having some episodes of twitching at home and not feeling well. The patient denies any recent falls or injuries. He states he has not been sick lately. 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 The patient is not having any new pain. Upon arrival to the ER, the patient is no longer twitching. He states he feels basically his normal self. The patient has been on chemotherapy treatments and feels this may be what was causing his symptoms of twitching earlier this evening. He has recently seen Oncology. We were able to look up the records, and it looks like his condition is worsening, but the patient wanted to continue taking chemotherapy treatments. OBJECTIVE: GENERAL APPEARANCE: The patient is awake and alert. No respiratory distress. VITAL SIGNS: Reviewed. He is afebrile. Blood pressure 120/91, O2 saturation 97%, pulse 66, respirations 16. HEENT: Oral mucous membranes are slightly dry. Tonsils are not enlarged or injected. Pharynx not inflamed. NECK: Supple. LUNGS: Clear with moderately reduced air exchange throughout the lung garibay. CARDIAC: Heart sounds distinct. No murmurs noted. SKIN: Warm and dry. ABDOMEN: Soft and nontender. LABORATORY WORK: CBC and basic metabolic panel. The patient's hemoglobin is 9.3, which is not new for him. White count is normal. Metabolic panel is unremarkable. DIAGNOSIS: Episode of twitching, etiology unclear. Symptoms currently resolved. TREATMENT PLAN: I feel the patient is safe to return home and his agrees. They will be discharged to go home and continue with their normal treatment and ADLs as tolerated. Followup is p.r.n. of course if any further symptoms do develop. CRS/MODL /[id number]
== END 2019-02-17 01:00 | disposition home or self-care (01) ==
LOC: LB.ED 23:01
DX: R25.3 Fasciculation (principal)
CPT/HCPCS: 36415; 80048; 85025; 99283; A0425; A0429